=== PATIENT | male | born 1975 | race Caucasian/White ===

== ENCOUNTER 2017-12-06 14:28 | Emergency (ER) | payer OTHER, SELFPAY ==
[2017-12-06 14:29] VITALS: BP 170/100; PULSE 61; RESP 18; TEMP 36.6; O2SAT 96; BMI 28.2
--- NOTE | 2017-12-06 15:07 | CT_ITS ---
STUDY: CT ABDOMEN AND PELVIS WITHOUT CONTRAST REASON FOR EXAM: Male, 41 years old. Left flank pain RADIATION DOSAGE (If Supplied By Facility): CTDIvol = ( 14.43 ) mGy, DLP = ( 722.33 ) mGycm TECHNIQUE: Transaxial images were obtained from the dome of the diaphragm to the symphysis pubis without oral contrast, and without intravenous contrast. Sagittal and coronal images were reconstructed. Individualized dose optimization techniques were used for this CT. COMPARISON: 2012 FINDINGS: The visualized lung bases are unremarkable. The visualized portions of the heart are within normal limits. Normal liver. Normal gallbladder and extrahepatic biliary system. Normal spleen. Normal pancreas. Normal bilateral adrenal glands. Both kidneys show nonobstructing nephrolithiasis. Largest stone in the right kidney measures 3 mm, largest in the left 8 mm. Right kidney is free of obstruction, left kidney shows hydronephrosis and hydroureter. Findings are due to a 5 mm stone in the proximal left ureter best seen on coronal recon image 70 Normal visualized stomach. Normal small intestine. Normal colon. The appendix is visualized and appears normal. Appendix best seen on coronal recon image 73 Normal abdominal aorta. Normal inferior vena cava. Normal retroperitoneum. Normal urinary bladder. Normal abdominal wall. Normal osseous structures. CT/Abdomen/Pelvis without Cont IMPRESSION: 5 mm stone in the proximal left ureter causing left-sided hydronephrosis and hydroureter. No significant perinephric or periureteral inflammatory stranding noted. Bilateral nonobstructing nephrolithiasis Normal appendix visualized. Electronically Signed: Rajeev Busby MD at 15:59 EDT , Service support ,
--- NOTE | 2017-12-06 15:13 | ED.VISSUMM ---
- ER Visit Summary Date of Service: 12/06/17 Chief Complaint: Left flank pain History of Present Illness: The patient is a 41 M history of prior kidney stone. Today approximately 1315 p.m. he developed sudden onset left flank pain. No vomiting. No diarrhea. No dysuria or hematuria. No fever. Feels like his prior kidney stone. Denies any trauma. Physical Examination: Middle-aged male complaining of pain vital signs are stable and afebrile. He does not look septic or toxic. H EENT exam unremarkable. Neck nontender. Lungs clear to auscultation bilaterally. Heart regular rhythm no murmur. Abdomen is soft nondistended normal bowel sounds no peritoneal signs. Both the right upper right lower quadrant unremarkable. No hernias or masses. No signs of obstruction. Moving all 4 extremities. Neurovascular intact. Back exam is nontender he points to his left CVA region for the pain but is not reproducible. There is no signs of trauma. Neurologic exam is awake and alert moving all 4 extremities. Test Results: CT flank shows a left proximal 5 mm ureteral calculi with hydroureter and hydronephrosis. There is also some renal stones. Appendix is seen is normal. Read by the radiologist reviewed by me. Emergency Department Course and Treatment: Patient with left flank pain with prior kidney stone. Treated with IV fluids, Dilaudid, Zofran and Toradol. CT and UA will be obtained. Treatment Plan: Repeat exam patient looks and feels much better at 1615 on repeat exam. Feeling much better after the pain medication. Currently we are waiting for him to be able to give us a urine sample. He will be discharged on [place] for pain. Flomax and can also use Motrin. Strain his urine to determine if the stone pass. Follow-up with Dr. Nelson as needed. Disposition: Discharge Impression: Acute left flank pain secondary to left proximal 5 mm ureteral calculi History of kidney stones This note was generated with [employer] dictation software. It may contain incorrect words, spelling, and punctuation that were not noted in review of the chart prior to signing ED Disposition - Plan for ED Patient: Chief Complaint: Flank Pain Referrals: Erica Negro MD [Primary Care Provider] -
[2017-12-06] MEDS: Ketorolac 30 MG/ML Syringe IV (15:25)
[2017-12-06] MEDS: 0.9% Normal Saline 1,000 ML 1000 ML IV (15:25)
[2017-12-06] MEDS: Ondansetron 4 MG/2 ML Vial IV (15:25)
[2017-12-06] MEDS: HYDROmorphone 1 MG/ML Syringe IV (15:25)
--- NOTE | 2017-12-06 16:16 | ED.DEP ---
ED Disposition - Plan for ED Patient: Disposition: Home or Assisted Living Chief Complaint: Flank Pain Instructions: ED Stone Renal W Colic Prescriptions: Hydrocodone/Acetaminophen [[place] 10-325 Tablet] 1 - 2 ea PO Q4H PRN PRN #20 tab PRN Reason: kidney stone Ondansetron [Zofran Odt] 4 mg PO Q4H PRN PRN #10 tab.rapdis PRN Reason: Nausea Tamsulosin HCl [Flomax] 0.4 mg PO DAILY #3 cap Referrals: Russ Nelson MD [STAFF PHYSICIAN] - 1-2 Days if not improving Additional Instructions: Plenty of fluids and rest. Strain your urine looking past the stone. [place] as needed for pain. May also use Motrin or Advil. Zofran as needed for nausea. Call follow-up with Dr. Nelson the urologist as needed. Return to ER if you are feeling worse, fever or intractable vomiting
--- NOTE | 2017-12-06 16:25 | DCINST.ED_ITS ---
ED Disposition - Plan for ED Patient: Disposition: Home or Assisted Living Chief Complaint: Flank Pain Instructions: ED Stone Renal W Colic Prescriptions: Hydrocodone/Acetaminophen [[place] 10-325 Tablet] 1 - 2 ea PO Q4H PRN PRN #20 tab PRN Reason: kidney stone Ondansetron [Zofran Odt] 4 mg PO Q4H PRN PRN #10 tab.rapdis PRN Reason: Nausea Tamsulosin HCl [Flomax] 0.4 mg PO DAILY #3 cap Referrals: Russ Nelson MD [STAFF PHYSICIAN] - 1-2 Days if not improving Additional Instructions: Plenty of fluids and rest. Strain your urine looking past the stone. [place] as needed for pain. May also use Motrin or Advil. Zofran as needed for nausea. Call follow-up with Dr. Nelson the urologist as needed. Return to ER if you are feeling worse, fever or intractable vomiting
[2017-12-06 16:43] VITALS: BP 142/74; PULSE 71; RESP 16; O2SAT 98
== END 2017-12-06 16:44 | disposition home or self-care (01) ==
PROVIDERS: Emergency Provider Emergency Medicine; Family Provider Internal Medicine; PCP Internal Medicine
DX: N13.2 Hydronephrosis with renal and ureteral calculous obstruction (principal); R10.9 Unspecified abdominal pain; Z87.442 Personal history of urinary calculi
CPT/HCPCS: 74176; 96361; 96374; 96375; 99283; J7030; A4216; J2405

== ENCOUNTER 2017-12-11 19:40 | Observation (INO) | payer OTHER, SELFPAY ==
[2017-12-11 19:41] VITALS: BP 156/93; PULSE 86; RESP 20; TEMP 37; O2SAT 98; BMI 31.1
[2017-12-11] MEDS: Morphine 4 MG/ML Syringe IV (20:11)
[2017-12-11] MEDS: 0.9% Normal Saline 1,000 ML 1000 ML IV (20:11)
[2017-12-11] MEDS: Ketorolac 30 MG/ML Syringe IV (20:11)
[2017-12-11] MEDS: Ondansetron 4 MG/2 ML Vial IV (20:11)
--- NOTE | 2017-12-11 20:34 | RAD_ITS ---
STUDY: X-RAY - ABDOMEN/PELVIS REASON FOR EXAM: Male, 42 years old. History of kidney stone TECHNIQUE: Single AP view of the abdomen / pelvis. COMPARISON: Previous study of 12/10/2012 FINDINGS: The lung bases are not in the field of view of the study. There is an unremarkable bowel gas pattern. There is no demonstrated free abdominal air. There are several calcific densities overlying the upper pole of the left kidney measuring up to 7 mm, corresponding to upper pole left renal calcifications noted on CT study of 12/06/2017. There is a 4 x 2 mm calcification of the medial left abdomen adjacent to the L3-4 disc space which may be intraureteral. Normal soft tissue structures. Normal visualized osseous structures. RAD/Abdomen Single View IMPRESSION: Calcifications overlying the upper pole of the left kidney corresponding to left renal calculi noted on CT study of 12/06/2017. There is a 2 x 4 mm calcification of the medial left abdomen adjacent to the L3-4 disc space which may be intraureteral. There is no evidence of ileus or obstruction. Electronically Signed: Osiel Elkins MD at 21:00 EDT , Service support ,
[2017-12-11 21:06] LABS: Absolute Lymphocyte Count 2.01 X10^3/ul (0.83-4.51); Absolute Neutrophil Count 3.1 X10^3/uL (2.0-7.7); Basophil# 0.03 X10^3/uL; Basophil% 0.5 % (0-1); Eosinophil# 0.12 X10^3/uL; Eosinophils% 2.1 % (0-5); Hematocrit 39.1 % (40-54); Hemoglobin 13.3 g/dl (13.0-16.5); Lymphocyte # 2.01 X10^3/ul (4.0); Lymphocyte % 34.7 % (19-41); Mean Corpuscular Hgb 31.1 pg (27.0-32.0); Mean Corpuscular Volume 91.4 fL (80-94); Monocyte# 0.51 X10^3/uL; Monocyte% 8.8 % (0-10); Neutrophil # 3.11 X10^3/uL (2.7-7.7); Neutrophil % 53.7 % (47-70); Platelet Count 186 K/mm3 (150-450); RBC Distribution Width CV 12.7 % (11.6-14.6); RBC Distribution Width SD 42.1 fl (35.1-43.9); Red Blood Count 4.28 M/mm3 (4.6-6.2); White Blood Count 5.8 K/mm3 (4.4-11.0)
[2017-12-11 21:07] LABS: POSITIVE COUNT NO; POSITIVE DIFFERENTIAL NO; POSITIVE MORPHOLOGY NO
[2017-12-11 21:45] LABS: Anion Gap 7 (5-15); BUN 18 mg/dL (7-18); BUN/Creat Ratio 13.7 RATIO (10-20); Calcium,Total 8.4 mg/dL (8.5-10.1); Chloride 111 mmol/L (98-107); Creatinine, Serum 1.31 mg/dL (0.70-1.30); EST Glomerular Filtration Rate 64 mL/min (>60); Est Glom Filt Rate - Afr Amer 77 mL/min (>60); Glucose 103 mg/dL (74-106); Potassium 4.4 mmol/L (3.5-5.1); Sodium Level 146 mmol/L (136-145)
[2017-12-11 22:03] LABS: Bacteria 0 SEEN /hpf (None Seen); Mucous, Urine 0 SEEN /hpf (<or=2+); White Blood Cells 0 SEEN /hpf (0-5)
--- NOTE | 2017-12-11 22:04 | ED.VISSUMM ---
- ER Visit Summary Date of Service: 12/11/17 Chief Complaint: Flank pain History of Present Illness: The patient is a 42 M who presents with left flank pain. He was seen in the emergency department 5 days ago. He was diagnosed with a proximal ureteral calculus at that time. He was discharged on [place] Flomax and NSAIDs. His pain was initially controlled but he complains of worsening pain since that time. Currently complains of severe left flank pain. No nausea vomiting or diarrhea. Physical Examination: Afebrile vitals stable Moist mucous membranes Heart regular rate and rhythm Lungs clear Abdomen soft nondistended he does have left flank tenderness left lower quadrant tenderness Alert Test Results: Labs notable for sodium 146 chloride 111 creatinine 1.31 which is slightly increased from prior labs. Urinalysis pending at the time of this dictation. Abdominal x-ray shows a 2 x 4 mm calcification in the medial left abdomen which may be in the ureter. Emergency Department Course and Treatment: Patient was treated with IV fluids morphine Toradol and Zofran. He reports a moderate improvement in symptoms. Patient discussed with Dr. Pro jessica Kothari who will admit the patient with plan for ureteral stent tomorrow. Treatment Plan: [] Disposition: Admit Impression: Ureterolithiasis This note was generated with [employer] dictation software. It may contain incorrect words, spelling, and punctuation that were not noted in review of the chart prior to signing ED Disposition - Plan for ED Patient: Chief Complaint: Flank Pain Referrals: Erica Negro MD [Primary Care Provider] -
[2017-12-11 22:09] LABS: Color, Urine Yellow (Yellow); Glucose, Dipstick Normal (Normal); Ketone-Dipstick Negative (Negative); Leukocyte Esterase-Dipstick Negative /ul (Negative); Nitrite-Dipstick Negative (Negative); Occult Blood-Urine 250 /ul (Negative); Protein-Dipstick Negative (Negative); Urine Bilirubin Dipstick Negative (Negative); Urine Clarity Sl. Cloudy (Clear); Urine Urobilinogen 1 mg/dl (Normal)
[2017-12-11 22:15] LABS: Red Blood Cells-Urine 10-25 SEEN /hpf (0-5); Squamous Epithelial Cells - UA 0-5 SEEN /hpf (0-5)
[2017-12-11 22:40] VITALS: RESP 18; O2SAT 98
[2017-12-11 22:53] VITALS: BMI 31.4; BMI 31.5
[2017-12-11] MEDS: 0.9% Normal Saline 1,000 ML 125 ML IV (23:04)
[2017-12-11 23:30] VITALS: BP 157/105; PULSE 83; RESP 16; TEMP 36.8; O2SAT 96
[2017-12-11] MEDS: Cefazolin 1 GM/50 ML BAG IV (23:49)
[2017-12-12] VITALS (13 sets, daily range): BP systolic 136–155; BP diastolic 68–102; PULSE 63–97; RESP 16–18; TEMP 36.1–37.2; O2SAT 91–98; BMI 31.4
[2017-12-12] MEDS: Cefazolin 1 GM/50 ML BAG IV ×2 (06:03→14:56)
[2017-12-12] MEDS: Morphine 2 MG/ML Syringe IV (06:05)
--- NOTE | 2017-12-12 07:51 | PCM.HP.STD ---
Problem List (1) Left ureteral calculus Status: Acute History of Present Illness Date of Admission: 12/12/17 Chief Complaint: Left kidney stones in the ureter and in the kidney The patient is a 42 year old male who presents to the hospital with severe pain from a left stone in the mid left ureter and also has stone in the left kidney and the patient was admitted for pain control plan to take the patient today to surgery for cystoscopy and left stent placement Past Medical History Allergies aspirin Allergy (Verified 12/11/17 19:42) Rash latex Allergy (Verified 12/11/17 19:42) Rash Home Medications: Ambulatory Orders Medication Instructions Recorded Cyclobenzaprine [Flexeril] 10 mg PO QHS PRN 12/06/17 Furosemide [Lasix] 1 tab PO DAILY 12/06/17 Surgical History: no surgical history Psychiatric History: No pertinent psych hx Lives: Spouse/ Significant Other Smoking Status: Former smoker Tobacco Use: Cigarettes Alcohol: None Drugs: None Review of Systems Constitutional: Denies: Chills, Fever, Weight Change HEENT: Denies: Head Aches, Sinus Congestion, Sinus Drainage Cardiovascular: Denies: Chest Pain, Palpitations Respiratory: Denies: Cough, Shortness of breath at rest, Sputum production Gastrointestinal: Denies: Abdominal Pain, Nausea, Vomiting Genitourinary: Denies: Dysuria Musculoskeletal: Denies: Joint Pain, Joint Tenderness Skin: Denies: Rash, Wounds Neurological: Denies: Numbness, Tingling, Focal weakness Psychiatric: Denies: Anxiety, Depression, Homicidal Ideations, Suicidal Ideations Hematologic/ Lymphatic: Denies: Easy Bruising, Easy Bleeding VTE Information - Inpt Only VTE Present on Admission: No VTE Mechan Device Prophylaxis: SCD's Patient Problems: Active and Suspected Problems Left ureteral calculus (Acute) - Physical Exam General: Alert, Oriented x3, Cooperative HEENT: Atraumatic, PERRLA, EOMI, Normocephalic Neck: Supple, No JVD, Negative Carotid Bruits Lungs: Clear to auscultation, Normal air movement Cardiovascular: Regular rate, No murmurs Abdomen: Bowel Sounds Present, Soft, Non Tender Extremities: No edema, Capillary Refill Less than 3 Seconds Skin: No rashes, No breakdown Musculoskeletal: No Tenderness to Palpation of Joints or Extremities Neurological: Cranial nerves II-XII grossly intact Psych/Mental Status: Normal Affect, Appropriate Vital Signs Temp Pulse Resp BP Pulse Ox 98.1 F 65 18 143/87 H 97 12/12/17 02:17 12/12/17 02:17 12/12/17 02:17 12/12/17 02:17 12/12/17 02:17 Oxygen Delivery Method Room Air Weight: 105.4 kg Body Mass Index (BMI) 31.4 Intake and Output for Last 24 Hours 12/10/17 12/11/17 12/12/17 23:59 23:59 23:59 Intake Total 350 / 350 785 / 785 Output Total 575 / 575 1025 / 1025 Balance -225 / -225 -240 / -240 Assessment/Plan All Active Problems Left ureteral calculus (Acute) 42-year-old male admitted for pain control for mid left ureteral calculi and some stones in left kidney plan for cystoscopy and stent placement today and discharge after procedure
--- NOTE | 2017-12-12 07:54 | PCM.DC.URO ---
Discharge Diet: Light diet - advance as tolerated Discharge Activity: Return to Normal Activity Call your doctor if you observe: Fever of 101 or Higher Allergies/Adverse Reactions: Allergies aspirin Allergy (Verified 12/11/17 19:42) Rash latex Allergy (Verified 12/11/17 19:42) Rash Medications to take at Discharge Cyclobenzaprine [Flexeril] 10 mg PO QHS PRN 12/06/17 Furosemide [Lasix] 1 tab PO DAILY 12/06/17 Hydrocodone/Acetaminophen [[place] 5-325 Tablet] 1 ea PO Q4H PRN PRN 7 Days #14 tab 12/12/17 The following prescriptions were given: Hydrocodone/Acetaminophen [[place] 5-325 Tablet] 1 ea PO Q4H PRN PRN 7 Days #14 tab PRN Reason: Pain Primary Care Physician: Erica Negro MD [Primary Care Provider] - Test Results: Test results from this visit will be discussed in further detail at your follow-up appointment, if applicable. Please Follow Up With: Russ Nelson MD When: my office will call to set up outpatient lithotripsy.
[2017-12-12] MEDS: 0.9% Normal Saline 1,000 ML 125 ML IV ×2 (08:11→14:57)
--- NOTE | 2017-12-12 12:13 | OP.PCM_ITS ---
Problem List (1) Left ureteral calculus Status: Acute Report of Operation Date of Procedure: 12/12/17 Pre-Operative Diagnosis: Left ureteral calculi left renal calculi Post-Operative Diagnosis: Same Surgery/Procedure Performed:: Cystoscopy and left stent placement, left retrograde pyelogram Description of Surgical Findings:: 42-year-old male presented to the hospital with severe pain in the left side from a stone in the mid ureter and some stones up in the left kidney he was admitted and today was taken to surgery for cystoscopy left stent placement, 42 male taken back to the operating room at the smooth induction of general anesthesia he was placed supine on the table penis testicles were prepped and draped in usual sterile fashion within the bladder with a 21 [place] rigid cystourethroscope the entire length the urethra is normal the prostate was normal inside the bladder identified the left ureteral orifice and advanced a wire up on the left side, and then did a retrograde pyelogram to [place] catheter to see the anatomy and then advanced a wire up into the kidney can see stones in the upper pole the kidney I ended up pushing the stone in the ureter back up to the kidney and over the wire place a stent 6 [place] by 26 cm stent stent coiled in the kidney bladder good good position I drain the bladder patient anesthetic was reversed plan is plan to set him up for surgery for shockwave lithotripsy about a week and a half. Type of Anesthesia:: General Drains: stent - Admit VTE Documentation VTE Present on Admission: No VTE Mechan Device Prophylaxis: SCD's VTE Pharm Prophylaxis ordered?: No Reason prophylaxis not ordered:: Treatment Not Indicated
== END 2017-12-12 18:48 | disposition home or self-care (01) ==
LOC: ED 20:47 → MS2 22:19
PROVIDERS: Admitting Provider Urology; Emergency Provider Emergency Medicine; Family Provider Internal Medicine; PCP Internal Medicine; Visit Provider Urology
PROC: 0TJB8ZZ Inspection of Bladder, Via Natural or Artificial Opening Endoscopic (ICD-10-PCS; CPT 52000; principal; 2017-12-12 14:50)
DX: N20.2 Calculus of kidney with calculus of ureter (principal); K21.9 Gastro-esophageal reflux disease without esophagitis; G89.29 Other chronic pain; Z79.899 Other long term (current) drug therapy; Z87.891 Personal history of nicotine dependence
CPT/HCPCS: 00910; 52332; 74018; 76000; 80048; 81001; 85025; 96361; 96365; 96366; 96375; 96376; 99218; 99282; J7030; C1769; C2617; G0378; J2405

== ENCOUNTER → 2018-01-02 08:21 | Outpatient (CLI) | payer OTHER, SELFPAY | PROVIDERS: Family Provider Internal Medicine; PCP Internal Medicine; Visit Provider Urology | DX: N20.0 Calculus of kidney (principal) | CPT/HCPCS: 74018 ==

== ENCOUNTER → 2019-10-25 11:44 | Outpatient (CLI) | payer OTHER, SELFPAY ==
[2019-10-25 13:17] LABS: HIV - WCH Non-Reactive (Nonreactive)
[2019-10-25 14:02] LABS: Chlamydia Trachomatis by PCR Negative (Negative)
[2019-10-25 14:03] LABS: Neisserai gonorrhoeae by PCR Negative (Negative); Probe Check PASS; Sample Adequacy Control PASS; Specimen Processing Control PASS
[2019-10-25 15:36] LABS: Probe Check PASS; Sample Adequacy Control PASS; Specimen Processing Control PASS; Trichomonas Vag DNA by PCR Negative (Negative)
[2019-10-27 15:53] LABS: HSV 2 IgG 2.49 index (0.00-0.90)
[2019-11-01 01:56] LABS: Rapid Plasmin Reagin (RPR) NONREACTIVE (NONREACTIVE)
--- OUTSIDE RECORDS SUMMARY | 2020-03-09 07:46 | XMS RPT_ITS | CCD ---
:1975 External Reference #:[id number] Author Organization [facility] Care Team Providers Name Role Phone GANTA Unavailable Unavailable Allergies Reported Allergen Reaction(s) Severity Date of Onset Location Bee Translations: [ BEES] Swelling 04-09-2005 - [facility] Other [place] Repository Latex Translations: [ Other: See Comments 10-26-2012 [facility] LATEX] Other [place] Repository salicylic acid Rash 04-09-2005 [facility] Cli henrik Translations: [ Other [place] SALICYLATES] Repository sulfamethoxazole / Other: See Comments 10-26-2012 [facility] trimethoprim Other [place] Translations: [ Repository SULFAMETHOXAZOLE-TRIMETHO PRIM] Medications Medication Name Sig Date Prescriber Location buPROPion buPROPion 07-03-2018 Janay ([facility]) [facility] (WELLBUTRIN) 100 mg (70624) tablet Indications: Depression, unspecified depression type Take 1 tablet by mouth twice daily. 60 tablet 5 07/03/2018 Active Comment: Take 1 tablet by mouth twice daily. CPAP CPAP Indications: Obstructive 01-09-2019 [facility] ([id number]) sleep apnea syndrome Initiate Auto PAP @ 5-20 cm of water with humidification. Mask (per patient preference) optional chin strap (if indicated) , filters, tubing, humidifier and lifetime supplies. 1 Device 0 01/09/2019 Active CPAP Indications: Obstructive sleep 01-09-2019 [facility] ([id number]) apnea syndrome Initiate Auto PAP @ 5-20 cm of water with humidification. Mask (per patient preference) optional chin strap (if indicated) , filters, tubing, humidifier and lifetime supplies. 1 Device 0 01/09/2019 Active CPAP Indications: Obstructive sleep 01-09-2019 [facility] ([id number]) apnea syndrome Initiate Auto PAP @ 5-20 cm of water with humidification. Mask (per patient preference) optional chin strap (if indicated) , filters, tubing, humidifier and lifetime supplies. 1 Device 0 01/09/2019 Active CPAP Indications: Obstructive sleep 01-09-2019 [facility] (31452) apnea syndrome Initiate Auto PAP @ 5-20 cm of water with humidification. Mask (per patient preference) optional chin strap (if indicated) , filters, tubing, humidifier and lifetime supplies. 1 Device 0 01/09/2019 Active Comment: Initiate Auto PAP @ 5-20 cm of water with humidification. Mask (per patient preference) optional chin st rap (if indicated) , filters, tubing, humidifier and lifetime supplies. cyclobenzaprine cyclobenzaprine (FLEXERIL) 04-26-2017 [facility] 10 mg tablet Take 1 tablet ( 13640) by mouth at bedtime as needed. 45 tablet 2 04/26/2017 Active Comment: Take 1 tablet by mouth at be dtime as needed. Lisinopril lisinopril (ZESTRIL, 11-22-2019 - [facility] PRINIVIL) 10 mg tablet 01-29-2020 (4419 5) Take 1 tablet by mouth once daily. 30 tablet 1 11/22/2019 01/29/2020 Discontinued Comment: Take 1 tablet by mouth once daily. Losartan losartan (COZAAR) 25 mg 01-29-2020 Janay ([facility]) [facility] tablet Take 1 tablet by (441 95) mouth once daily. 30 tablet 1 01/29/2020 Active Comment: Take 1 tablet by mouth once daily. Naproxen naproxen sodium (ALEVE) 02-18-2016 Margaret ([facility]) [facility] (37728) 220 mg tablet Take 1 tablet by mouth twice daily with meals. TAKE WITH FOOD 0 02/18/2016 Active Comment: Take 1 tablet by mouth twice daily with meals. TAKE WITH FOOD Nystatin nystatin (MYCOSTATIN) powder 12-13-2019 [facility] Indications: Intertriginous (11004) candidiasis Apply 1 application to affected area four times daily. 2 Bottle 1 12/13/2019 Active Comment: Apply 1 application to affec jania area four times daily. 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 disorders syndrome (96900) Other nutritional; Body mass index 25-29 - Active 01-19-2017 - [facility] endocrine; and overweight (17554) metabolic disorders Residual codes; Obstructive sleep apnea Active 12-19-2018 - [facility] unclassified syndrome (34242) Rheumatoid arthritis Arthropathy of lumbar Active 04-26-2017 - [facility] and related disease facet joint (88266) Spondylosis; Lumbosacral spondylosis Active 04-26-2017 - [facility] intervertebral disc (92362) disorders; other back problems Past or Other Problems Category Problem Name Status Date Location Other lower H/O: respiratory Completed 01-19-2017 - [facility] linic respiratory disease disease (99179) Results Result Name Value Range Unit Interpretation Flag Date Location [facility] on 2020-01-29 [facility] Telephone (INTMWS) Normal 01-29-2020 [facility] DEANNE MCGOVERN ([id number]) 1975 M [place] Date Time Provider Department ([id number]) 01/29/20 ROBERTO CARLOS SCHERER INTMWS During your visit today, we recorded the following informati on about you: Christi Mosley LPN 01/29/2020 10:38 AM Signed Patient calling complaints of dry cough thinks it is f rom the Lisinopril rx. Patient asking for replacement rx. Patient uses [facility] his pharmacy. Can call patient back before 2 pm, works at 230 pm today. Please advise Janay Patricio APRN.INFORMATION STRATEGIST 01/29/2020 1:11 PM Signed Can switch to losartan, please make sure to keep scheduled appointment with to recheck BP. The following approved medic ation requests have been transmitted electronically. Signed Prescriptions Disp Refills losartan (COZAAR) 25 mg tablet 30 tablet 1 Sig: Take 1 tablet by mouth once daily. Authorizing Provider: JANAY PATRICIO (INFORMATION STRATEGIST) Janay Patricio APRN.ROSAURA Lissshemar Rebollar Ma 01/29/2020 2:31 PM Signed Patient notified. Allergies As of Date: 01/29/2020 Noted Allergy Reaction ASA (SALICYLATES) 04/09/2005 2 - Rash BACTRIM (SULFAMETHOXAZOLE-TRIMETH*10/26/2012 14 - Other: See Comments Comments: Photodermatitis BEES 04/09/2005 7 - Swelling LATEX 10/26/2012 14 - Other: See Comments Comments: Dermatology tested. Date Reviewed: 11/14/2019 Reviewed by: Lady Rogel ([employer]) Dylan - Fully Assessed Reason for Visit: lisinopril causing dry cough [Other] Order(s):losartan (COZAAR) 25 mg tabletTake 1 tablet by mout h once daily.Disp: 30 tabletRfl: 1 Prescriptions as of 01/29/2020 Sig: LOSARTAN 25 MG TABLET Take 1 tablet by mouth once d* NYSTATIN 100,000 UNIT/GRAM TO* Apply 1 application to affect * CPAP Initiate Auto PAP @ 5-20 cm o* BUPROPION HCL 100 MG TABLET Take 1 tablet by mouth twice * CYCLOBENZAPRINE 10 MG TABLET Take 1 tablet by mouth at bed* NAPROXEN SODIUM 220 MG TABLET Take 1 tablet by mouth twice * Problem List As Of Date 01/29/2020 Noted Resolved Depressive disorder, not elsewhere classified [*09/06/2007 0 01/19/2017 SPONDYLOLISTHESIS [Q76.2] 09/06/2007 Essential hypertension, benign [I10] 11/19/2013 01/19/2017 History of pleural empyema [Z87.09] 01/19/2017 More... Overweight (BMI 25.0-29.9) [E66.3] 01/19/2017 More... Carpal tunnel syndrome, bilateral [G56.03] 01/19/2017 Facet arthropathy, lumbar (HCC) [M47.816] 04/26/2017 More... Spondylosis of lumbosacral region [M47.817] 04/26/2017 Obstructive sleep apnea [G47.33] 12/19/2018 Prescriptions ordered this encounter Disp Refills Start End LOSARTAN 25 MG TABLET 30 t* 1 01/29/2020 Route: ORAL Sig: Take 1 tablet by mouth once daily. Medications Discontinued During This Encounter Prescriptions - lisinopril (ZESTRIL, PRINIVIL) 10 mg tablet (Discontinued) Take 1 tablet by mouth once daily. 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 Patient found out that [facility] cannot run this test and he will have to take the order to [facility] for completion. Please review and advise. KRUNAL Tinoco MD 01/18/2020 3:13 PM Signed His HSV 2, which was the test of contention has come negativ e for us There is not need to do any futher testing accor ding to me unless the patient insists Leona Ramirez LPN 01/21/2020 4:09 PM Signed Phone number is disconnected or out of service. Letter mailed out and my chart message sent for patient to all office. Leona Millan LPN 01/21/2020 4:49 PM Signed Pt reports notified of results. Pt repor ts he would like further testing since the first test was positive and the second was negative. Pt updated his phone number. Nida Lafleur LPN 01/22/2020 8:24 AM Signed Form received. Leona Ramirez LPN 01/23/2020 6:26 PM Signed Phoned patient and notified him that form was completed by and we will place it in medical records to be picked up. 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 Leona Ramirez LPN Allergies As of Date: 01/18/2020 Noted Allergy Reaction ASA (SALICYLATES) 04/09/2005 2 - Rash BACTRIM (SULFAMETHOXAZOLE-TRIMETH*10/26/2012 14 - Other: See Comments Comments: Photodermatitis BEES 04/09/2005 7 - Swelling LATEX 10/26/2012 14 - Other: See Comments Comments: Dermatology tested. Date Reviewed: 11/14/2019 Reviewed by: Lady Rogel ([employer] [facility]) Dylan - Fully Assessed Reason for Visit: outside lab order form [Other] Prescriptions as of 01/18/2020 Sig: NYSTATIN 100,000 UNIT/GRAM TO* Apply 1 application to affect * LISINOPRIL 10 MG TABLET Take 1 tablet by mouth once d* CPAP Initiate Auto PAP @ 5-20 cm o* BUPROPION HCL 100 MG TABLET Take 1 tablet by mouth twice * CYCLOBENZAPRINE 10 MG TABLET Take 1 tablet by mouth at bed* NAPROXEN SODIUM 220 MG TABLET Take 1 tablet by mouth twice * Problem List As Of Date 01/18/2020 Noted Resolved Depressive disorder, not elsewhere classified [*09/06/2007 0 01/19/2017 SPONDYLOLISTHESIS [Q76.2] 09/06/2007 Essential hypertension, benign [I10] 11/19/2013 01/19/2017 History of pleural empyema [Z87.09] 01/19/2017 More... Overweight (BMI 25.0-29.9) [E66.3] 01/19/2017 More... Carpal tunnel syndrome, bilateral [G56.03] 01/19/2017 Facet arthropathy, lumbar (HCC) [M47.816] 04/26/2017 More... Spondylosis of lumbosacral region [M47.817] 04/26/2017 Obstructive sleep apnea [G47.33] 12/19/2018 Letter Text Encounter Status:Closed by LEONA RAMIREZ LPN on 01/23/20 cnpn on 2019-12-14 CNPN Telephone (INTMWS) Normal 12-14-2019 [place] DEANNE Fischer ([id number]) 1975 [facility] Date Time Provider Department ([id number]) 12/14/19 ROBERTO CARLOS SCHERER INTMWS During your visit today, we recorded the following informati on about you: Kimberley Tubbs RN 12/14/2019 1:19 PM Signed Patient reports he contacted the [facility] . Reports they are the only one who does the Western Blot blood test for herp es, and it is the most accurate. They are sending him the kit. Reports they n eed an order from pcp. Instructions will come with kit. Once th ey read the instructions will call pcp to either cigar packer and picker Rx or have pcp send to [facility]. Allergies As of Date: 12/14/2019 Noted Allergy Reaction ASA (SALICYLATES) 04/09/2005 2 - Rash BACTRIM (SULFAMETHOXAZOLE-TRIMETH*10/26/2012 14 - Other: See Comments Comments: Photodermatitis BEES 04/09/2005 7 - Swelling LATEX 10/26/2012 14 - Other: See Comments Comments: Dermatology tested. Date Reviewed: 11/14/2019 Reviewed by: Lady Rogel ([employer]) Dylan - Fully Assessed Reason for Visit: Western Blot Blood Test [Other] Prescriptions as of 12/14/2019 Sig: ACYCLOVIR 400 MG TABLET Take 1 tablet by mouth three * NYSTATIN 100,000 UNIT/GRAM TO* Apply 1 application to affect * DOXYCYCLINE HYCLATE 100 MG TA* Take 1 tablet by mouth twice * LISINOPRIL 10 MG TABLET Take 1 tablet by mouth once d* CPAP Initiate Auto PAP @ 5-20 cm o* BUPROPION HCL 100 MG TABLET Take 1 tablet by mouth twice * CYCLOBENZAPRINE 10 MG TABLET Take 1 tablet by mouth at bed* NAPROXEN SODIUM 220 MG TABLET Take 1 tablet by mouth twice * Problem List As Of Date 12/14/2019 Noted Resolved Depressive disorder, not elsewhere classified [*09/06/2007 0 01/19/2017 SPONDYLOLISTHESIS [Q76.2] 09/06/2007 Essential hypertension, benign [I10] 11/19/2013 01/19/2017 History of pleural empyema [Z87.09] 01/19/2017 More... Overweight (BMI 25.0-29.9) [E66.3] 01/19/2017 More... Carpal tunnel syndrome, bilateral [G56.03] 01/19/2017 Facet arthropathy, lumbar (HCC) [M47.816] 04/26/2017 More... Spondylosis of lumbosacral region [M47.817] 04/26/2017 Obstructive sleep apnea [G47.33] 12/19/2018 Encounter Status:Closed by JANAY PATRICIO CNP on 12/21/19 progress on 2019-11 PROGRESS HNO ID: [id number] Normal 12-13-2019 [facility] Author: Roberto Carlos Scherer Quinonez ([id number]) Service: ? Author Type: Physician Type: Progress Notes Filed: 12/13/2019 1:13 PM Note Text: Reason for Visit Patient presents with: Established Patient Deanne Mcgovern is a 44 year old male who presents here today see below . 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 Lot of emotional strife going on between them and they would like to find out if the HSV 2 is new. Also patient noted that he has been having some intertrigino us issues in the groin redness, a little soreness , he has been using the antifungal spray but it is not working for her. No problem-specific Assessment AND Plan notes found for this encounter. PAST MEDICAL HISTORY Diagnosis Date - Depressive disorder, not elsewhere classified 09/06/2007 - Empyema (HCC) 2000 - Kidney stone 2013 - Pneumonia X3 PAST SURGICAL HISTORY Procedure Laterality Date - PAST SURGICAL HISTORY OF 2000 Drainage of empyema FAMILY HISTORY Problem Relation Age of Onset - Heart Father valvular - Hypertension Father - Stroke Father Social History Tobacco Use - Smoking status: Former Smoker Packs/day: 0.50 Years: 5.00 Pack years: 2.50 Types: Cigarettes Last attempt to quit: 06/04/2013 Years since quittin.5 - Smokeless tobacco: Never Used Substance Use Topics - Alcohol use: No Frequency: Patient refused Drinks per session: 1 or 2 Binge frequency: Never - Drug use: No Past medical history, appointments, medications, allergies r eviewed. Pertinent Lab/Diagnostic Studies are reviewed and discussed today Current Outpatient Medications: - lisinopril (ZESTRIL, PRINIVIL) 10 mg tablet - CPAP - buPROPion (WELLBUTRIN) 100 mg tablet - cyclobenzaprine (FLEXERIL) 10 mg tablet - naproxen sodium (ALEVE) 220 mg tablet Review of Systems CONSTITUTIONAL: No fevers, chills night sweats, unintended w eight loss CARDIOVASCULAR: No chest pain, dyspnea, palpitations, orthop theo, PND, ankle edema. PULM: No dyspnea, unexplained cough. GI: No dysphagia/odynophagia, problematic reflux, constipati on, diarrhea, changes in stool habits, hematochezia, melena. : No new urinary complaints, including dysuria, gross stella turia or pyuria. NEURO: No new balance problems, peripheral weakness/paresthe singh or numbness of concern. Physical Exam BP 120/74 (BP Site: Left Arm, BP Position: Sitting, BP Cuff Size: Large Adult) Pulse 90 Temp 36 ?C (96.8 ?F) (Temporal) Resp 1 6 Wt 101.2 kg (223 lb) SpO2 96% BMI 30.24 kg/m? General appearance: Well appearing, alert, in no acute distr ess, well nourished. Skin: Skin color, texture, turgor normal, no suspicious rash es or lesions Head: Normocephalic, no masses, lesions, tenderness or abnor malities Eyes: Anicteric sclera. Pupils are equally round and reactiv e to light. Extraocular movements are intact. Lungs: Lungs clear to auscultation. No wheezing, rhonchi, ra les Heart: RRR without murmur, gallop, or rubs. Groin: macerated skin which is also erythematous intertrigin ous areas of both groins and the cleft of the buttock. ASSESSMENT/PLAN: 1. Herpes genitalis in men - ICD9: 054.10, ICD10: A60.02 (pr imary diagnosis) - HSV 1 AND 2 IGM ABS, INDIRECT - HSV-2 TYPE SPEC AB, IGG W/RFLX - ACYCLOVIR 400 MG TABLET 2. Skin infection - ICD9: 686.9, ICD10: L08.9 - DOXYCYCLINE HYCLATE 100 MG TABLET 3. Intertriginous candidiasis - ICD9: 112.3, ICD10: B37.2 - NYSTATIN 100,000 UNIT/GRAM TOPICAL POWDER ROBERTO CARLOS SCHERER MD hsvg typ 1 and 2 abs on 2019-12-13 Herpes Simplex IgG 1 >8.0 Normal 0 [facility] ([id number]) Comment: Result Comment: INDEX VALUES ARE INTERPRETED FOLLOWS: NEGATIVE SPECIMENS <0.9 EQUIVOCAL SPECIMENS 0.9 TO 1 .0 POSITIVE SPECIMENS >=1.1 Performed By: #### HSVG12 ## ##[address] [phone] Herpes Simplex IgG 2 <0.2 Normal 0 [facility] ([id number]) Comment: Result Comment: INDEX VALUES ARE INTERPRETED FOLLOWS: NEGATIVE SPECIMENS <0.9 EQUIVOCAL SPECIMENS 0.9 TO 1 .0 POSITIVE SPECIMENS >=1.1 Performed By: #### HSVG12 ## ##[address] [phone] HSV IgG 1 Positive Negative Critically 12-13-2019 [facility] Qualitative abnormal [facility] ([id number]) Comment: Result Comment: IgG antibody to HSV-1 detected Performed By: #### HSVG12 ## ##[address] [phone] HSV IgG 2 Qualitative Negative Negative Normal 12-13-19 20 [facility] ([id number]) Comment: Result Comment: No HSV-2 IgG antibodies detected. Patient is presumed not to h ave had a previous HSV-2 infection. Performed By: #### HSVG12 ## ##[address] [phone] herpes simplex igm on 2019-12-13 Herpes Simplex IgM 1.10 0-0.90 OD Ratio High 12-13-2019 [facility] ([id number]) Comment: Result Comment: INDEX VALUES /OD RATIOS ARE INTERPRETED FOLLOWS: NEGATIVE SPECIMENS <=0.90 EQUIVOCAL SPECIMENS 0.91 TO 1.09 POSITIVE SPECIMENS >=1.10 Performed By: #### HSVM #### [facility] [place], [place] [phone] HSV IgM Qualitative Positive Negative Critically [address] [facility] abnormal [place] ([id number]) Comment: Result Comment: IgM antibodi es specific to HSV-1 or HSV-2 were detected. It is n ot possible to distinguish between HSV-1 and HSV-2 with this test system. Posit chyna values indicate a primary or reacti vated infection with HSV-1 or HSV- 2. Performed By: #### HSVM #### [facility] [place], [place] [phone] cnpn on 2019-12-13 CNPN Telephone (INTMWS) Normal 12-13-2019 [place] [facility] DEANNE MCGOVERN ([id number]) 1975 [facility] Date Time Provider Department () 12/13/19 ROBERTO CARLOS SCHERER INTMWS During your visit today, we recorded the following informati on about you: Ilana Emerson VALDEZ 12/13/2019 3:30 PM Signed Michelle from lab called about HSV orders. From w hat is currently ordered, she can only pull herpes simplex Can not do just type 2 alone Can do both. Correct order is: HSV 1,2 Antibodies, IgG and IgM [employer] HSVGM CPT Codes 20206 [id number] Includes HSV IgG Type 1 Antibody HSV IgG Type 2 Antibody HSV IgM Types 1 and 2 (combined) Antibodies Ilana Emerson VALDEZ 12/13/2019 3:51 PM Signed Michelle calling back. They were able to figure out cor rect orders and how to process. At this time, nothing more is needed. Disregard mes errol below. Allergies As of Date: 12/13/2019 Noted Allergy Reaction ASA (SALICYLATES) 04/09/2005 2 - Rash BACTRIM (SULFAMETHOXAZOLE-TRIMETH*10/26/2012 14 - Other: See Comments Comments: Photodermatitis BEES 04/09/2005 7 - Swelling LATEX 10/26/2012 14 - Other: See Comments Comments: Dermatology tested. Date Reviewed: 11/14/2019 Reviewed by: Lady Rogel ([employer]) Dylan - Fully Assessed Reason for Visit: question about lab orders [Other] Prescriptions as of 12/13/2019 Sig: ACYCLOVIR 400 MG TABLET Take 1 tablet by mouth three * NYSTATIN 100,000 UNIT/GRAM TO* Apply 1 application to affect * DOXYCYCLINE HYCLATE 100 MG TA* Take 1 tablet by mouth twice * LISINOPRIL 10 MG TABLET Take 1 tablet by mouth once d* CPAP Initiate Auto PAP @ 5-20 cm o* BUPROPION HCL 100 MG TABLET Take 1 tablet by mouth twice * CYCLOBENZAPRINE 10 MG TABLET Take 1 tablet by mouth at bed* NAPROXEN SODIUM 220 MG TABLET Take 1 tablet by mouth twice * Problem List As Of Date 12/13/2019 Noted Resolved Depressive disorder, not elsewhere classified [*09/06/2007 0 01/19/2017 SPONDYLOLISTHESIS [Q76.2] 09/06/2007 Essential hypertension, benign [I10] 11/19/2013 01/19/2017 History of pleural empyema [Z87.09] 01/19/2017 More... Overweight (BMI 25.0-29.9) [E66.3] 01/19/2017 More... Carpal tunnel syndrome, bilateral [G56.03] 01/19/2017 Facet arthropathy, lumbar (HCC) [M47.816] 04/26/2017 More... Spondylosis of lumbosacral region [M47.817] 04/26/2017 Obstructive sleep apnea [G47.33] 12/19/2018 Encounter Status:Closed by ILANA RAMIREZ LPN on 12/13/19 cnov on 2019-12-13 CNOV Office Visit (INTMWS) Normal 12-13-19 20 [place] [facility] DEANNE MCGOVERN ([id number]) 1975 [facility] Date Time Provider Department ([id number]) 12/13/19 9:00 AM ROBERTO CARLOS SCHERER INTMWS During your visit today, we recorded the following informati on about you: Temperature Pulse Respiration Blood pressure 96.8 degrees 90/minute 16/minute 120/74 Weight 101.2 kg ROBERTO CARLOS SCHERER MD 12/13/2019 1:13 PM Signed Reason for Visit Patient presents with: Established Patient Deanne Mcgovern is a 44 year old male who presents here today see below . Health Maintenance HEPATITIS C SCREENING HIV SCREENING HPI Patient was tested positive for HSV 1 an d 2, he says she is monogamous but his is upset saying that he claims she is in the only one who has been the partner for the Past 3 months. Lot of emotional strife going on between them an d they would like to find out if the HSV 2 is new. Also patient noted that he has been having some intert riginous issues in the groin redness, a little soreness , he has been u sing the antifungal spray but it is not working for her. No problem-specific Assessment AND Plan notes found for this encounter. PAST MEDICAL HISTORY Diagnosis Date - Depressive disorder, not elsewhere classified 09/06/2007 - Empyema (HCC) 2000 - Kidney stone 2013 - Pneumonia X3 PAST SURGICAL HISTORY Procedure Laterality Date - PAST SURGICAL HISTORY OF 2000 Drainage of empyema FAMILY HISTORY Problem Relation Age of Onset - Heart Father valvular - Hypertension Father - Stroke Father Social History Tobacco Use - Smoking status: Former Smoker Packs/day: 0.50 Years: 5.00 Pack years: 2.50 Types: Cigarettes Last attempt to quit: 06/04/2013 Years since quittin.5 - Smokeless tobacco: Never Used Substance Use Topics - Alcohol use: No Frequency: Patient refused Drinks per session: 1 or 2 Binge frequency: Never - Drug use: No Past medical history, appointments, medications, allergies r eviewed. Pertinent Lab/Diagnostic Studies are reviewed and discussed today Current Outpatient Medications: - lisinopril (ZESTRIL, PRINIVIL) 10 mg tablet - CPAP - buPROPion (WELLBUTRIN) 100 mg tablet - cyclobenzaprine (FLEXERIL) 10 mg tablet - naproxen sodium (ALEVE) 220 mg tablet Review of Systems CONSTITUTIONAL: No fevers, chills night sweats, unintended w eight loss CARDIOVASCULAR: No chest pain, dyspnea, palpitations, orth opnea, PND, ankle edema. PULM: No dyspnea, unexplained cough. GI: No dysphagia/odynophagia, problematic reflux, constipati on, diarrhea, changes in stool habits, hematochezia, melena. : No new urinary complaints, including dysuria, areli s hematuria or pyuria. NEURO: No new balance problems, peripheral weakness/pa resthesias or numbness of concern. Physical Exam BP 120/74 (BP Site: Left Arm, BP Positio n: Sitting, BP Cuff Size: Large Adult) Pulse 90 Temp 36 ?C (96.8 ?F) (Temporal) Resp 16 Wt 101.2 kg (223 lb) SpO2 96% BMI 30.24 kg/m? General appearance: Well norman earing, alert, in no acute distress, well nourished. Skin: Skin color, texture, turgor normal, no suspicious rash es or lesions Head: Normocephalic, no masses, lesions, tenderness or abnor malities Eyes: Anicteric sclera. Pupils are equally round and reactiv e to light. Extraocular movements are intact. Lungs: Lungs clear to auscultation. No wheezing, rhonchi, ra les Heart: RRR without murmur, gallop, or rubs. Groin: macerated skin which is also erythematous intertriginous areas of both groins and the cleft of the buttock. ASSESSMENT/PLAN: 1. Herpes genitalis in men - ICD9: 054.10, ICD10: A60. 02 (primary diagnosis) - HSV 1 AND 2 IGM ABS, INDIRECT - HSV-2 TYPE SPEC AB, IGG W/RFLX - ACYCLOVIR 400 MG TABLET 2. Skin infection - ICD9: 686.9, ICD10: L08.9 - DOXYCYCLINE HYCLATE 100 MG TABLET 3. Intertriginous candidiasis - ICD9: 112.3, ICD10: B37.2 - NYSTATIN 100,000 UNIT/GRAM TOPICAL POWDER MD ROBERTO CARLOS RAE MD 12/13/2019 2:37 PM Signed Addended by: ROBERTO CARLOS SCHERER MD on: 12/13/2019 02:37 PM Modules accepted: Orders Referring Provider: SELF [200] Allergies As of Date: 12/13/2019 Noted Allergy Reaction ASA (SALICYLATES) 04/09/2005 2 - Rash BACTRIM (SULFAMETHOXAZOLE-TRIMETH*10/26/2012 14 - Other: See Comments Comments: Photodermatitis BEES 04/09/2005 7 - Swelling LATEX 10/26/2012 14 - Other: See Comments Comments: Dermatology tested. Date Reviewed: 11/14/2019 Reviewed by: Lady Rogel ([employer]) Dylan - Fully Assessed Reason for Visit: Established Patient [175] Primary Visit Diagnosis:Herpes genitalis in men [A60.02] Other Visit Diagnoses:Skin infection [L08.9] Intertriginous candidiasis [B37.2] Order(s):HSV 1 AND 2 IGM ABS, INDIRECT [[id number]] Order #: [id number] FUTURE HSV-2 TYPE SPEC AB, IGG W/RFLX [[id number]] Order #: [id number] FUTURE HSV 1 AND 2 IGM ABS, INDIRECT [[id number]] Order #: [id number] HSV-2 TYPE SPEC AB, IGG W/RFLX [[id number]] Order #: [id number] acyclovir (ZOVIRAX) 400 mg tabletTake 1 tablet by mouth thre e times daily for 7 days.Disp: 21 tabletRfl: 1 nystatin (MYCOSTATIN) powderApply 1 application to affected area four times daily.Disp: 2 BottleRfl: 1 doxycycline (VIBRA-TABS) 100 mg tabletTake 1 tablet by mouth twice daily for 10 days.Disp: 20 tabletRfl: 0 HSV-2 TYPE SPEC AB, IGG W/RFLX [[id number]] Order #: [id number] FUTURE HSV 1 AND 2 IGM ABS, INDIRECT [[id number]] Order #: [id number] FUTURE HSV-2 TYPE SPEC AB, IGG W/RFLX [[id number]] Order #: [id number] HSV 1 AND 2 IGM ABS, INDIRECT [[id number]] Order #: [id number] HSV-2 TYPE SPEC AB, IGG W/RFLX [[id number]] Order #: [id number] FUTURE HSV-2 TYPE SPEC AB, IGG W/RFLX [[id number]] Order #: [id number] HERPES SIMPLEX IGM AB [SQHS] Order #: [id number] FUTURE Prescriptions as of 12/13/2019 Sig: ACYCLOVIR 400 MG TABLET Take 1 tablet by mouth three * NYSTATIN 100,000 UNIT/GRAM TO* Apply 1 application to affect * DOXYCYCLINE HYCLATE 100 MG TA* Take 1 tablet by mouth twice * LISINOPRIL 10 MG TABLET Take 1 tablet by mouth once d* CPAP Initiate Auto PAP @ 5-20 cm o* BUPROPION HCL 100 MG TABLET Take 1 tablet by mouth twice * CYCLOBENZAPRINE 10 MG TABLET Take 1 tablet by mouth at bed* NAPROXEN SODIUM 220 MG TABLET Take 1 tablet by mouth twice * Problem List As Of Date 12/13/2019 Noted Resolved Depressive disorder, not elsewhere classified [*09/06/2007 0 01/19/2017 SPONDYLOLISTHESIS [Q76.2] 09/06/2007 Essential hypertension, benign [I10] 11/19/2013 01/19/2017 History of pleural empyema [Z87.09] 01/19/2017 More... Overweight (BMI 25.0-29.9) [E66.3] 01/19/2017 More... Carpal tunnel syndrome, bilateral [G56.03] 01/19/2017 Facet arthropathy, lumbar (HCC) [M47.816] 04/26/2017 More... Spondylosis of lumbosacral region [M47.817] 04/26/2017 Obstructive sleep apnea [G47.33] 12/19/2018 Prescriptions ordered this encounter Disp Refills Start End ACYCLOVIR 400 MG TABLET 21 t* 1 12/13/2019 12/20/2019 Route: ORAL Sig: Take 1 tablet by mouth three times daily for 7 days. NYSTATIN 100,000 UNIT/GRAM TOPICAL P* 2 Vj* 1 12/13/2019 Route: TOPICAL Sig: Apply 1 application to affected area four times daily. DOXYCYCLINE HYCLATE 100 MG TABLET 20 t* 0 12/13/2019 020 Route: ORAL Sig: Take 1 tablet by mouth twice daily for 10 days. Encounter Status:Closed by ROBERTO CARLOS SCHERER MD on 12/13/19 obsolete on 2019-11 OBSOLETE Refill (INTMWS) Normal 11-22-2019 [place] DEANNE Fischer ([id number]) 1975 [facility] Date Time Provider Department ([id number]) 11/22/19 JANAY PATRICIO ([facility]) INTMWS During your visit today, we recorded the following informati on about you: Dorene Johnson LPN 11/22/2019 9:40 AM Signed Patient has been identified by name and date of : Yes Patient phones for refill(s): Pending Prescriptions Disp Refills LISINOPRIL 10 MG TABLET 30 tablet 1 Sig: Take 1 tablet by mouth once daily. JAIDEN: No Date of last office visit in primary care: 03/08/2019 Follow-up: 12/13/2019 Last 2 Encounter Wt Readings: Date: Wt: 11/14/2019 103.2 kg (227 lb 9.6 oz) 10/24/2019 102.2 kg (225 lb 3.2 oz) Previous labs/tests for medication: Blood Pressure: BUN (mg/dL) Date Value 01/08/2019 16 Sodium (mmol/L) Date Value 01/08/2019 143 Last 1 Encounter BP Readings: Date: BP: 11/14/2019 132/88 Please advise. Thank you. Dorene Johnson LPN Allergies As of Date: 11/22/2019 Noted Allergy Reaction ASA (SALICYLATES) 04/09/2005 2 - Rash BACTRIM (SULFAMETHOXAZOLE-TRIMETH*10/26/2012 14 - Other: See Comments Comments: Photodermatitis BEES 04/09/2005 7 - Swelling LATEX 10/26/2012 14 - Other: See Comments Comments: Dermatology tested. Date Reviewed: 11/14/2019 Reviewed by: Lady Rogel (Sofiya Zavala) Dylan - Fully Assessed Reason for Visit: Refill Request [94] Order(s):lisinopril (ZESTRIL, PRINIVIL) 10 mg tabletTake 1 t ablet by mouth once daily.Disp: 30 tabletRfl: 1 Prescriptions as of 11/22/2019 Sig: LISINOPRIL 10 MG TABLET Take 1 tablet by mouth once d* CPAP Initiate Auto PAP @ 5-20 cm o* BUPROPION HCL 100 MG TABLET Take 1 tablet by mouth twice * CYCLOBENZAPRINE 10 MG TABLET Take 1 tablet by mouth at bed* NAPROXEN SODIUM 220 MG TABLET Take 1 tablet by mouth twice * Problem List As Of Date 11/22/2019 Noted Resolved Depressive disorder, not elsewhere classified [*09/06/2007 0 01/19/2017 SPONDYLOLISTHESIS [Q76.2] 09/06/2007 Essential hypertension, benign [I10] 11/19/2013 01/19/2017 History of pleural empyema [Z87.09] 01/19/2017 More... Overweight (BMI 25.0-29.9) [E66.3] 01/19/2017 More... Carpal tunnel syndrome, bilateral [G56.03] 01/19/2017 Facet arthropathy, lumbar (HCC) [M47.816] 04/26/2017 More... Spondylosis of lumbosacral region [M47.817] 04/26/2017 Obstructive sleep apnea [G47.33] 12/19/2018 Prescriptions ordered this encounter Disp Refills Start End LISINOPRIL 10 MG TABLET 30 t* 1 11/22/2019 Route: ORAL Sig: Take 1 tablet by mouth once daily. Medications Discontinued During This Encounter lisinopril (ZESTRIL, PRINIVIL) 10 mg* 30 t* 1 09/11/20192019 Route: ORAL Sig: Take 1 tablet by mouth once daily. Disc: Reason for discontinue is not on file. Encounter Status:Closed by MARGARET RAGSDALE CNP on 11/22/19 progress on 2019-10 PROGRESS HNO ID: [id number] Normal 11-14-2019 [place] Author: Lady Rogel (Sofiya Ashlyn Richardson [facility] Service: ? [place] Author Type: Nurse Practitioner ([id number]) Type: Progress Notes Filed: 11/14/2019 4:03 PM Note Text: Subjective HPI Deanne Kurt Mcgovern is a 43 year old male who presents with right ear pressure, decreased hearing, and bloody drainage for that started last night. Denies pain. No URI symptoms, fever, or chills. No recent swimming, itching of the ear, or trauma. Works for [employer]- not around any loud [employer]. No history of ear issues similar to this in the last. appl ied [employer] last night which worsened the symptoms. Review of Systems Constitutional: Negative for chills, fever and malaise/fatig ue. HENT: Positive for ear discharge and hearing loss. Negative for congestion, ear pain, sinus pain and sore throat. Respiratory: Negative for cough, sputum production, shortnes s of breath and wheezing. Skin: Negative for itching and rash. Neurological: Negative for dizziness, tingling and headaches . BP 132/88 Pulse 76 Temp 36.8 ?C (98.2 ?F) (Temporal) R seth 16 Wt 103.2 kg (227 lb 9.6 oz) BMI 30.87 kg/m? PAST MEDICAL HISTORY Diagnosis Date - Depressive disorder, not elsewhere classified 09/06/2007 - Empyema (HCC) 2000 - Kidney stone 2013 - Pneumonia X3 PAST SURGICAL HISTORY Procedure Laterality Date - PAST SURGICAL HISTORY OF 2000 Drainage of empyema ALLERGIES Asa [Salicylates]; Bactrim [Sulfamethoxazole-Trime thoprim]; Bees; Latex MEDICATIONS lisinopril (ZESTRIL, PRINIVIL) 10 mg tablet Take 1 tablet by mouth once daily. CPAP Initiate Auto PAP @ 5-20 cm of water with humidificatio n. Mask (per patient preference) optional chin strap (if indicated) , myriam ters, tubing, humidifier and lifetime supplies. buPROPion (WELLBUTRIN) 100 mg tablet Take 1 tablet by mouth twice daily. cyclobenzaprine (FLEXERIL) 10 mg tablet Take 1 tablet by federico th at bedtime as needed. naproxen sodium (ALEVE) 220 mg tablet Take 1 tablet by mouth twice daily with meals. TAKE WITH FOOD wyfnwdxn-burypzxct-nbdkuidufiglqv (CORTISPORIN) 3.5-10,000-1 mg/mL-unit/mL-% otic suspension Use 3 Drops in the right ear four times daily for 7 days. FAMILY HISTORY Problem Relation Age of Onset - Heart Father valvular - Hypertension Father - Stroke Father Social History Tobacco Use - Smoking status: Former Smoker Packs/day: 0.50 Years: 5.00 Pack years: 2.50 Types: Cigarettes Last attempt to quit: 06/04/2013 Years since quittin.4 - Smokeless tobacco: Never Used Substance Use Topics - Alcohol use: No Frequency: Patient refused Drinks per session: 1 or 2 Binge frequency: Never - Drug use: No Objective Physical Exam Constitutional: He is oriented to person, place, and time an d well-developed, well-nourished, and in no distress. HENT: Head: Normocephalic and atraumatic. Right Ear: There is drainage, swelling and tenderness. Tympa henrik membrane is not perforated, not erythematous and not bulging. No midd le ear effusion. Decreased hearing is noted. Left Ear: No drainage, swelling or tenderness. Tympanic memb troy is not perforated, not erythematous and not bulging. No middle ear effusion. No decreased hearing is noted. Mouth/Throat: No posterior oropharyngeal edema or posterior oropharyngeal erythema. Eyes: Conjunctivae are normal. Pulmonary/Chest: Effort normal. No respiratory distress. Lymphadenopathy: He has no cervical adenopathy. Neurological: He is alert and oriented to person, place, and time. No cranial nerve deficit. Gait normal. Coordination normal. Skin: No rash noted. Psychiatric: Mood, memory, affect and judgment normal. ASSESSMENT/PLAN: 1. Acute otitis externa of right ear, unspecified type - ICD 9: 380.10, ICD10: H60.501 - keep ear clean and dry - SLIEWYHC-MHFUHAGCM-IMHDUNKTB 3.5 MG-10,000 UNIT/ML-1 % EAR DROPS,SUSP All of the above discussed with the patient in detail. Misty fernandez is in agreement with the above plan. Treatment and plan of care di scussed including course of treatment, possible medication side effe cts, and what to watch for in regards to worsening signs and symptoms. All questions addressed. Lady Richardson APRN.INFORMATION STRATEGIST cnov on 2019-11-14 CNOV Office Visit ([facility]) Normal 11-14-19 [place] [facility] DEANNE MCGOVERN ([id number]) 1975 M [place] Date Time Provider Department ([id number]) 11/14/19 3:00 PM LADY RICHARDSON (ASSESSMENT CONSULTANT, INFORMATION STRATEGIST)UCWSTR During your visit today, we recorded the following informati on about you: Temperature Pulse Respiration Blood pressure 98.2 degrees 76/minute 16/minute 132/88 Weight 103.2 kg Lady Richardson APRN.INFORMATION STRATEGIST 11/14/2019 4:03 PM Signed Subjective HPI Deannecaro Mcgovern is a 43 year old male who presents with right ear pressure, decreased hearing, and bloody drainage for that started last night. Denies pain. No URI symptoms, fever, or chills. No recent swimmin g, itching of the ear, or trauma. Works for [employer]- not around any loud [employer]. No history of ear issues similar to this in the last. norman lied [employer] last night which worsened the symptoms. Review of Systems Constitutional: Negative for chills, fever and malaise/fatig ue. HENT: Positive for ear disch arge and hearing loss. Negative for congestion, ear pain, sinus pain and sore throat. Respiratory: Negative for cough, sputum production, shortn ess of breath and wheezing. Skin: Negative for itching and rash. Neurological: Negative for dizziness, tingling and headaches . BP 132/88 Pulse 76 Temp 36.8 ?C (98.2 ?F) (Temporal) R seth 16 Wt 103.2 kg (227 lb 9.6 oz) BMI 30.87 kg/m? PAST MEDICAL HISTORY Diagnosis Date - Depressive disorder, not elsewhere classified 09/06/2007 - Empyema (HCC) 2000 - Kidney stone 2013 - Pneumonia X3 PAST SURGICAL HISTORY Procedure Laterality Date - PAST SURGICAL HISTORY OF 2000 Drainage of empyema ALLERGIES Asa [Salicylates]; Bactrim [Sulfamethoxazole-Tri methoprim]; Bees; Latex MEDICATIONS lisinopril (ZESTRIL, PRINIVIL) 10 mg tab let Take 1 tablet by mouth once daily. CPAP Initiate Auto PAP @ 5-20 cm of water with humidificatio n. Mask (per patient preference) optional chin strap (if indicated) , myriam ters, tubing, humidifier and lifetime supplies. buPROPion (WELLBUTRIN) 100 mg tablet Take 1 tablet by mouth twice daily. cyclobenzaprine (FLEXERIL) 10 mg tablet Take 1 tablet by mouth at bedtime as needed. naproxen sodium (ALEVE) 220 mg tablet Take 1 tab let by mouth twice daily with meals. TAKE WITH FOOD plbziqzs-mtbnfphoe-befouimyngblsn (CORTISPORIN) 3.5-10 ,000-1 mg/mL-unit/mL-% otic suspension Use 3 Drops in the right ear four times shala y for 7 days. FAMILY HISTORY Problem Relation Age of Onset - Heart Father valvular - Hypertension Father - Stroke Father Social History Tobacco Use - Smoking status: Former Smoker Packs/day: 0.50 Years: 5.00 Pack years: 2.50 Types: Cigarettes Last attempt to quit: 06/04/2013 Years since quittin.4 - Smokeless tobacco: Never Used Substance Use Topics - Alcohol use: No Frequency: Patient refused Drinks per session: 1 or 2 Binge frequency: Never - Drug use: No Objective Physical Exam Constitutional: He is oriented to person, place, and time and well-developed, well-nourished, and in no distress. HENT: Head: Normocephalic and atraumatic. Right Ear: There is drainage , swelling and tenderness. Tympanic membrane is not perforated, not erythematous and not bulging. No middle ear effusion. Decreased hearing is noted. Left Ear: No drainage, swelling or tenderness. Tympanic memb troy is not perforated, not erythematous and not bulging. No middle ear effusion. No decreased hearing is noted. Mouth/Throat: No posterior oropharyngeal edema or posterior oropharyngeal erythema. Eyes: Conjunctivae are normal. Pulmonary/Chest: Effort normal. No respiratory distress. Lymphadenopathy: He has no cervical adenopathy. Neurological: He is alert and oriented to person , place, and time. No cranial nerve deficit. Gait normal. Coordination normal. Skin: No rash noted. Psychiatric: Mood, memory, affect and judgment normal. ASSESSMENT/PLAN: 1. Acute otitis externa of right ear, unspecifie d type - ICD9: 380.10, ICD10: H60.501 - keep ear clean and dry - JTEEBWVI-AURNHVARV-FZXEGLTBJ 3.5 MG-10,000 UNIT/ML-1 % EAR DROPS,SUSP All of the above discussed with the zuleyka ent in detail. Patient is in agreement with the above plan. Treatment and plan of care discussed including course of treatment, possible medication side effects, and what to watch for in regards to worsening signs and symptoms. All questions addressed. Lady Richardson, SOFIYA.INFORMATION STRATEGIST Referring Provider: SELF [200] Allergies As of Date: 11/14/2019 Noted Allergy Reaction ASA (SALICYLATES) 04/09/2005 2 - Rash BACTRIM (SULFAMETHOXAZOLE-TRIMETH*10/26/2012 14 - Other: See Comments Comments: Photodermatitis BEES 04/09/2005 7 - Swelling LATEX 10/26/2012 14 - Other: See Comments Comments: Dermatology tested. Date Reviewed: 11/14/2019 Reviewed by: Lady Rogel ([employer]) Dylan - Fully Assessed Reason for Visit: Ear Problem [38] Cmt: RIGHT ear pressure with blood x 1 day Primary Visit Diagnosis:Acute otitis externa of right ear, unspecified type [H60.501] Order(s):dbnnjnnt-icresawpa-feosbchfntgpqu (CORTISPORIN) 3.5 -10,000-1 mg/mL-unit/mL-% otic suspensionUse 3 Drops in the right ear four times daily for 7 days.Disp: 1 BottleRfl: 0 Prescriptions as of 11/14/2019 Sig: LISINOPRIL 10 MG TABLET Take 1 tablet by mouth once d* CPAP Initiate Auto PAP @ 5-20 cm o* BUPROPION HCL 100 MG TABLET Take 1 tablet by mouth twice * CYCLOBENZAPRINE 10 MG TABLET Take 1 tablet by mouth at bed* NAPROXEN SODIUM 220 MG TABLET Take 1 tablet by mouth twice * CNIGURCF-DNBGHBUPN-BVIDIGBRE * Use 3 Drops in the right ear * Problem List As Of Date 11/14/2019 Noted Resolved Depressive disorder, not elsewhere classified [*09/06/2007 0 01/19/2017 SPONDYLOLISTHESIS [Q76.2] 09/06/2007 Essential hypertension, benign [I10] 11/19/2013 01/19/2017 History of pleural empyema [Z87.09] 01/19/2017 More... Overweight (BMI 25.0-29.9) [RPH1776] 01/19/2017 More... Carpal tunnel syndrome, bilateral [G56.03] 01/19/2017 Facet arthropathy, lumbar (HCC) [M47.816] 04/26/2017 More... Spondylosis of lumbosacral region [M47.817] 04/26/2017 Obstructive sleep apnea [G47.33] 12/19/2018 Prescriptions ordered this encounter Disp Refills Start End VLVWKRWQ-INRBKPWIG-SAMCSVLMM 3.5 MG-* 1 Vj* 0 11/14/201905/2019 Route: RIGHT EAR Sig: Use 3 Drops in the right ear four times daily for 7 day s. Encounter Status:Closed by DYLAN ARRIAZA.LADY ZAVALA on 11/13 progress on 2019-10 PROGRESS HNO ID: [id number] Normal 10-24-2019 [facility] Author: George (Rosaura) [facility] ([id number]) Service: ? Author Type: Nurse Practitioner Type: Progress Notes Filed: 10/24/2019 9:51 AM Note Text: Subjective HPI Nontoxic-appearing male presents urgent care with requests o f STD testing. Patient states would like him to be tested for syphilis , gonorrhea, chlamydia, Trichomonas, hepatitis panel, HIV. Additionally p atient request a CBC CMP and lipid profile. Patient states he has b een in a monogamous relationship for over 30 years and has no concern s for STDs. Patient is denies any symptoms. Patient states he feels well and does not have any fevers, abdominal pain, testicular pain, chest pain , shortness breath, abdominal pain or change in bowel or bladder habits. BP 122/82 Pulse 94 Temp 36.2 ?C (97.2 ?F) (Tympanic) R seth 18 Wt 102.2 kg (225 lb 3.2 oz) BMI 30.54 kg/m? Review of Systems Constitutional: Negative for chills, fever and malaise/fatig ue. HENT: Negative for congestion, ear discharge, ear pain, sinu s pain and sore throat. Eyes: Negative for blurred vision. Respiratory: Negative for cough, sputum production, shortnes s of breath and wheezing. Cardiovascular: Negative for chest pain. Gastrointestinal: Negative for abdominal pain, nausea and vo miting. Genitourinary: Negative. Musculoskeletal: Negative for myalgias. Skin: Negative for itching and rash. Neurological: Negative for dizziness and headaches. Objective Physical Exam Constitutional: He is oriented to person, place, and time an d well-developed, well-nourished, and in no distress. No distr ess. HENT: Right Ear: Hearing and ear canal normal. No drainage. No dec reased hearing is noted. Left Ear: Hearing, tympanic membrane and ear canal normal. N o drainage. No decreased hearing is noted. Mouth/Throat: Uvula is midline. Eyes: Pupils are equal, round, and reactive to light. Conjun ctivae are normal. Right eye exhibits no discharge. Left eye exhibits n o discharge. Genitourinary: Testes/scrotum and penis normal. Genitourinary Comments: Per Pt Neurological: He is alert and oriented to person, place, and time. Gait normal. Skin: Skin is warm and dry. No rash noted. He is not diaphor etic. Psychiatric: Affect and judgment normal. Nursing note and vitals reviewed. ASSESSMENT/PLAN: 1. Screening for STD (sexually transmitted disease) - ICD9: V74.5, ICD10: Z11.3 I offered to test patient for chlamydia and gonorrhea patien t states he would like to have a full workup patient will follow up with primary care provider to get test performed. Patient was educated on supportive therapies. Patient will f ollow up with primary care provider as needed. Patient was instructed to i mmediately proceed to emergency room for any new, worsening, or symptom s lasting longer than anticipated. The patient's clinical presentation is otherwise unremarkable at this time. Based on exam and clinical findin g, the patient is stable for discharge. Plan of care was discussed with juan manuel trinidad. Patient verbalizes understanding and agrees to plan of care. This no te was generated using [employer] software. It may contain errors in wo rding, punctuation, or spelling. George Choi APRN.INFORMATION STRATEGIST cnov on 2019-10-24 CNOV Office Visit ([facility]) Normal 10-24-19 20 [place] [facility] DEANNE MCGOVERN ([id number]) 1975 [facility] Date Time Provider Department ([id number]) 10/24/19 8:45 AM GEORGE CHOI (ROSAURA) [facility] During your visit today, we recorded the following informati on about you: Temperature Pulse Respiration Blood pressure 97.2 degrees 94/minute 18/minute 122/82 Weight 102.2 kg George Choi APRN.ROSAURA 10/24/2019 9:51 AM Signed Subjective HPI Nontoxic-appearing male presents urgent care with requests o f STD testing. Patient states would like him to be tested for syphilis , gonorrhea, chlamydia, Trichomonas, hepatitis panel, HIV. Addition ally patient request a CBC CMP and lipid profile. Patient states he has been in a m onogamous relationship for over 30 years and has n o concerns for STDs. Patient is denies any symptoms. Patient states he feels well and does not have any fevers, abdominal pain, testicular pain, chest pain, anna rtness breath, abdominal pain or change in bowel or bladder habits. BP 122/82 Pulse 94 Temp 36.2 ?C (97.2 ?F) (Tympanic) R seth 18 Wt 102.2 kg (225 lb 3.2 oz) BMI 30.54 kg/m? Review of Systems Constitutional: Negative for chills, fever and malaise/fatig ue. HENT: Negative for congestion, ear discharge, ear pain, si nus pain and sore throat. Eyes: Negative for blurred vision. Respiratory: Negative for cough, sputum production, shortn ess of breath and wheezing. Cardiovascular: Negative for chest pain. Gastrointestinal: Negative for abdominal pain, nausea and vo miting. Genitourinary: Negative. Musculoskeletal: Negative for myalgias. Skin: Negative for itching and rash. Neurological: Negative for dizziness and headaches. Objective Physical Exam Constitutional: He is oriented to person, place, and time and well-developed, well-nourished, and in no distress. No distress. HENT: Right Ear: Hearing and ear canal normal. No drai nage. No decreased hearing is noted. Left Ear: Hearing, tympanic membrane and ear canal normal. N o drainage. No decreased hearing is noted. Mouth/Throat: Uvula is midline. Eyes: Pupils are equal, round, and react chyna to light. Conjunctivae are normal. Right eye exhibits no discharge. Left eye exhibits no discha rge. Genitourinary: Testes/scrotum and penis normal. Genitourinary Comments: Per Pt Neurological: He is alert an d oriented to person, place, and time. Gait normal. Skin: Skin is warm and dry. No rash noted. He is not diaphor etic. Psychiatric: Affect and judgment normal. Nursing note and vitals reviewed. ASSESSMENT/PLAN: 1. Screening for STD (sexual ly transmitted disease) - ICD9: V74.5, ICD10: Z11.3 I offered to test patient for chlamydia and gono rrhea patient states he would like to have a full workup p atient will follow up with primary care provider to get test performed. Patient was educated on supportive therapies. Patient will f ollow up with primary care provider as needed. Patient was instructed to immediately proceed to emergency room for any new, worsening, or symptoms lastin g longer than anticipated. The patient's clinical presentation is otherwise unremarkable at this time. Based on exam and clinical finding, the patient i s stable for discharge. Plan of care was discussed with patient. Patient verbalizes understanding and agrees to plan of care . This note was generated using [employer] software. It may contain errors in wording, punctuation, or spelling. George Choi APRN.[facility] Referring Provider: SELF [[id number]] Allergies As of Date: 10/24/2019 Noted Allergy Reaction ASA (SALICYLATES) 04/09/2005 2 - Rash BACTRIM (SULFAMETHOXAZOLE-TRIMETH*10/26/2012 14 - Other: See Comments Comments: Photodermatitis BEES 04/09/2005 7 - Swelling LATEX 10/26/2012 14 - Other: See Comments Comments: Dermatology tested. Date Reviewed: 10/24/2019 Reviewed by: George (Air Route Traffic Controller) Jimbo - Fully Assessed Reason for Visit: STD check [Other] Cmt: STD check-possible exposure but no sy mptoms Primary Visit Diagnosis:Scre ening for STD (sexually transmitted disease) [Z11.3] Prescriptions as of 10/24/2019 Sig: LISINOPRIL 10 MG TABLET Take 1 tablet by mouth once d* CPAP Initiate Auto PAP @ 5-20 cm o* BUPROPION HCL 100 MG TABLET Take 1 tablet by mouth twice * CYCLOBENZAPRINE 10 MG TABLET Take 1 tablet by mouth at bed* NAPROXEN SODIUM 220 MG TABLET Take 1 tablet by mouth twice * Problem List As Of Date 10/24/2019 Noted Resolved Depressive disorder, not elsewhere classified [*09/06/2007 0 01/19/2017 SPONDYLOLISTHESIS [Q76.2] 09/06/2007 Essential hypertension, benign [I10] 11/19/2013 01/19/2017 History of pleural empyema [Z87.09] 01/19/2017 More... Overweight (BMI 25.0-29.9) [YPX1457] 01/19/2017 More... Carpal tunnel syndrome, bilateral [G56.03] 01/19/2017 Facet arthropathy, lumbar (HCC) [M47.816] 04/26/2017 More... Spondylosis of lumbosacral region [M47.817] 04/26/2017 Obstructive sleep apnea [G47.33] 12/19/2018 Encounter Status:Closed by JIMBO ARRIAZA.GEORGE ZAVALA on obsolete on 2019-08 OBSOLETE Refill (INTMWS) Normal 09-10-2019 [facility] DEANNE Fischer ([id number]) 1975 [facility] Date Time Provider Department ([id number]) 09/10/19 MARGARET RAGSDALE (ROSAURA) INTMWS During your visit today, we recorded the following informati on about you: Nadira Lafleur LPN 09/11/2019 11:12 AM Signed Spoke /c pt, he states he would stop med ication it for a month or two and then restarted d/t elevated bp 162/104-190/140(without bp medicat ion). After restarting readings average: 118/92, this am 114/91. Pt dave isabel will continue to monitor and notify office if bp remain elevated. Upcoming appointment: 10/31/19(pt preferred F2F visit) Medication request: Pending Prescriptions Disp Refills LISINOPRIL 10 MG TABLET 30 tablet 1 Sig: Take 1 tablet by mouth once daily. JAIDEN: No Please review and advise. Janay Patricio APRN.CNP 09/11/2019 11:26 AM Signed The following approved medic ation requests have been transmitted electronically. Signed Prescriptions Disp Refills lisinopril (ZESTRIL, PRINIVIL) 10 mg tablet 30 tablet 1 Sig: Take 1 tablet by mouth once daily. JAIDEN: No Authorizing Provider: JANAY PATRICIO (INFORMATION STRATEGIST) Janay Patricio APRN.CNP Allergies As of Date: 09/10/2019 Noted Allergy Reaction ASA (SALICYLATES) 04/09/2005 2 - Rash BACTRIM (SULFAMETHOXAZOLE-TRIMETH*10/26/2012 14 - Other: See Comments Comments: Photodermatitis BEES 04/09/2005 7 - Swelling LATEX 10/26/2012 14 - Other: See Comments Comments: Dermatology tested. Date Reviewed: 07/17/2019 Reviewed by: Carol Romo Ma - Fully Assessed Reason for Visit: Refill Request [94] Order(s):lisinopril (ZESTRIL, PRINIVIL) 10 mg tabletTake 1 t ablet by mouth once daily.Disp: 30 tabletRfl: 1 Prescriptions as of 09/10/2019 Sig: LISINOPRIL 10 MG TABLET Take 1 tablet by mouth once d* CPAP Initiate Auto PAP @ 5-20 cm o* BUPROPION HCL 100 MG TABLET Take 1 tablet by mouth twice * CYCLOBENZAPRINE 10 MG TABLET Take 1 tablet by mouth at bed* NAPROXEN SODIUM 220 MG TABLET Take 1 tablet by mouth twice * Problem List As Of Date 09/10/2019 Noted Resolved Depressive disorder, not elsewhere classified [*09/06/2007 0 01/19/2017 SPONDYLOLISTHESIS [Q76.2] 09/06/2007 Essential hypertension, benign [I10] 11/19/2013 01/19/2017 History of pleural empyema [Z87.09] 01/19/2017 More... Overweight (BMI 25.0-29.9) [[id number]] 01/19/2017 More... Carpal tunnel syndrome, bilateral [G56.03] 01/19/2017 Facet arthropathy, lumbar (HCC) [M47.816] 04/26/2017 More... Spondylosis of lumbosacral region [M47.817] 04/26/2017 Obstructive sleep apnea [G47.33] 12/19/2018 Prescriptions ordered this encounter Disp Refills Start End LISINOPRIL 10 MG TABLET 30 t* 1 09/11/2019 Route: ORAL Sig: Take 1 tablet by mouth once daily. Medications Discontinued During This Encounter lisinopril (ZESTRIL, PRINIVIL) 10 mg* 30 t* 1 12/19/201809/10 Route: ORAL Sig: Take 1 tablet by mouth once daily. Disc: Reason for discontinue is not on file. Encounter Status:Closed by JANAY PATRICIO CNP on 09/11/19 progress on 2019-06 PROGRESS HNO ID: [id number] Normal 07-17-2019 [facility] Author: Kimberley Deshpande (Pa-C) Steven Quinonez ([id number]) Service: ? Author Type: Physician Guest Service Team Leader Type: Progress Notes Filed: 07/17/2019 9:01 PM Note Text: BP 140/88 Pulse 92 Temp 36.2 ?C (97.1 ?F) (Tympanic) R seth 16 Wt 103 kg (227 lb) SpO2 97% BMI 30.79 kg/m? 43 year old male with c/o sore throat, aches and pain over l ast 2 weeks. No sinus congestion. Occasional cough. No fever. No close il l contacts. Not painful to swallow, scratchy. Took Naproxen and Mucinex this morning, Xyzal for allergies: chemicals, dust. HISTORIES FAMILY HISTORY Problem Relation Age of Onset - Heart Father valvular - Hypertension Father - Stroke Father PAST MEDICAL HISTORY Diagnosis Date - Depressive disorder, not elsewhere classified 09/06/2007 - Empyema (HCC) 2000 - Kidney stone 2012 - Pneumonia X3 PAST SURGICAL HISTORY Procedure Laterality Date - PAST SURGICAL HISTORY OF 2001 Drainage of empyema Social History Tobacco Use - Smoking status: Former Smoker Packs/day: 0.50 Years: 5.00 Pack years: 2.50 Types: Cigarettes Last attempt to quit: 06/04/2013 Years since quittin.1 - Smokeless tobacco: Never Used Substance Use Topics - Alcohol use: No - Drug use: No ACTIVE PROBLEM LIST Congenital Spondylolisthesis History of Pleural Empyema Overweight (Bmi 25.0-29.9) Carpal Tunnel Syndrome, Bilateral Facet Arthropathy, Lumbar Spondylosis of Lumbosacral Region Obstructive Sleep Apnea Current Outpatient Medications Medication Sig Dispense Refill - CPAP Initiate Auto PAP @ 5-20 cm of water with humidificat ion. Mask (per patient preference) optional chin strap (if indicated) , myriam ters, tubing, humidifier and lifetime supplies. 1 Device 0 - lisinopril (ZESTRIL, PRINIVIL) 10 mg tablet Take 1 tablet by mouth once daily. 30 tablet 1 - buPROPion (WELLBUTRIN) 100 mg tablet Take 1 tablet by mout h twice daily. 60 tablet 5 - cyclobenzaprine (FLEXERIL) 10 mg tablet Take 1 tablet by m outh at bedtime as needed. 45 tablet 2 - naproxen sodium (ALEVE) 220 mg tablet Take 1 tablet by federico th twice daily with meals. TAKE WITH FOOD 0 No current facility-administered medications for this visit. HIV SCREENING due on 1992 BP CONTROLLED (<130/80) due on 1992 EXAM: OBJECTIVE: BP 140/88 Pulse 92 Temp 36.2 ?C (97.1 ?F) (Tympanic) R seth 16 Wt 103 kg (227 lb) SpO2 97% BMI 30.79 kg/m? General appearance: Pleasant adult man in no acute distress. Respirations: regular, unlabored Color: pink to lips and nailbeds, normal turgor Skin: warm, dry, no unusual rashes or lesions Head: Normocephalic Eyes: sclerae and conjunctivae without injection or exudate, PERRLA, EOMI, corneal light reflex symmetric bilaterally Ears: TM's are clear/ giordano bilaterally with normal landmarks , no swelling or deformity ear canal or external ear Nose/Sinuses: Nose patent. No turbinate swelling. Active exu date: none. Maxillary and frontal sinuses nontender to percussion. Oropharynx: oral membranes are moist. Lips, mucosa, and tong ue free from lesions. Gums without inflammation. Posterior pharynx no inj ection, no exudate, no tonsillar hypertrophy. Neck: Neck supple, no lymphadenopathy no; thyroid without ma ss or tenderness. Chest: normally shaped, equal expansion with breaths. Lungs: Lungs clear to auscultation and percussion. No crackl es or wheezes. Heart: RRR without murmur, gallop, or rubs. S1 and S2 normal . R. Strep test negative ASSESSMENT/PLAN: 1. Sore throat - ICD9: 462, ICD10: J02.9 - The patient may also use behind the counter Pseudoephedrin e and warm salt water gargles, throat lozenges and/or OTC throat spray as needed. - RAPID STREP TEST B/O Kimberley Harris PA-C cnov on 2019-07-17 CNOV Office Visit (UCWSTR) Normal 07-17-[address] [place] [address] DEANNE Fischer ([id number]) 1975 [facility] Date Time Provider Department ([id number]) 07/17/19 7:45 PM Kimberley HARRIS) WSTR During your visit today, we recorded the following informati on about you: Temperature Pulse Respiration Blood pressure 97.1 degrees 92/minute 16/minute 140/88 Weight 103 kg Kimberley Harris PA-C 07/17/2019 9:01 PM Signed BP 140/88 Pulse 92 Temp 36.2 ?C (97.1 ?F) (Tympanic) Resp 16 Wt 103 kg (227 lb) SpO2 97% BMI 30.79 kg/m? 43 year old male with c/o sore throat, aches and pain over last 2 weeks. No sinus congestion. Occasional cough. No fever. No close ill c ontacts. Not painful to swallow, scratchy . Took Naproxen and Mucinex this morning, Xyzal for allergies: chemicals, dust. HISTORIES FAMILY HISTORY Problem Relation Age of Onset - Heart Father valvular - Hypertension Father - Stroke Father PAST MEDICAL HISTORY Diagnosis Date - Depressive disorder, not elsewhere classified 09/06/2007 - Empyema (HCC) 2000 - Kidney stone 2013 - Pneumonia X3 PAST SURGICAL HISTORY Procedure Laterality Date - PAST SURGICAL HISTORY OF 2000 Drainage of empyema Social History Tobacco Use - Smoking status: Former Smoker Packs/day: 0.50 Years: 5.00 Pack years: 2.50 Types: Cigarettes Last attempt to quit: 06/04/2013 Years since quittin.1 - Smokeless tobacco: Never Used Substance Use Topics - Alcohol use: No - Drug use: No ACTIVE PROBLEM LIST Congenital Spondylolisthesis History of Pleural Empyema Overweight (Bmi 25.0-29.9) Carpal Tunnel Syndrome, Bilateral Facet Arthropathy, Lumbar Spondylosis of Lumbosacral Region Obstructive Sleep Apnea Current Outpatient Medications Medication Sig Dispense Refill - CPAP Initiate Auto PAP @ 5-20 cm of water with humidificat ion. Mask (per patient preference) optional chin strap (if indicated) , myriam ters, tubing, humidifier and lifetime supplies. 1 Device 0 - lisinopril (ZESTRIL, PRINIVIL) 10 mg tablet Take 1 tablet by mouth once daily. 30 tablet 1 - buPROPion (WELLBUTRIN) 100 mg tablet Take 1 ta blet by mouth twice daily. 60 tablet 5 - cyclobenzaprine (FLEXERIL) 10 mg table t Take 1 tablet by mouth at bedtime as needed. 45 tablet 2 - naproxen sodium (ALEVE) 22 0 mg tablet Take 1 tablet by mouth twice daily with meals. TAKE WITH FOOD 0 No current facility-administered medications for this visit. HIV SCREENING due on 1992 BP CONTROLLED (<130/80) due on 1992 EXAM: OBJECTIVE: BP 140/88 Pulse 92 Temp 36.2 ?C (97.1 ?F) (Tympanic) Resp 16 Wt 103 kg (227 lb) SpO2 97% BMI 30.79 kg/m? General appearance: Pleasant adult man in no acute distress. Respirations: regular, unlabored Color: pink to lips and nailbeds, normal turgor Skin: warm, dry, no unusual rashes or lesions Head: Normocephalic Eyes: sclerae and conjunctivae without injection or exudate, PERRLA, EOMI, corneal light reflex symmetric bilaterally Ears: TM's are clear/ giordano bilaterally with normal corie dmarks, no swelling or deformity ear canal or external ear Nose/Sinuses: Nose patent. No turbinate swelling. Active exu date: none. Maxillary and frontal sinuses nontender to percussion. Oropharynx: oral membranes are moist. Lips, mucosa, and tong ue free from lesions. Gums without inflammation. Posterior pharynx no inj ection, no exudate, no tonsillar hypertrophy. Neck: Neck supple, no lymphadenopathy no; thyroi d without mass or tenderness. Chest: normally shaped, equal expansion with breaths. Lungs: Lungs clear to auscultation and percussion. No crackl es or wheezes. Heart: RRR without murmur, gallop, or rubs. S1 and S2 normal . R. Strep test negative ASSESSMENT/PLAN: 1. Sore throat - ICD9: 462, ICD10: J02.9 - The patient may also use behind the counter Pseudoephedr ine and warm salt water gargles, throat lozenges and/or OTC throat spray as ne eded. - RAPID STREP TEST B/O RUSSELL Turner PA-C 07/17/2019 8:30 PM Addendum Your rapid strep test was negative. A second swab has been s ent for confirmation by DNA probe. Results will be back in 2 days. I t is unlikely that it will be positive, but if it is, you will be no tified and antibiotics will be prescribed. If you haven't heard from us, you may call in 3 days for results. Most sore throats will resol ve without the use of antibiotics. Cold viruses are the most common causes of sore throat. They are transmitted through direct contact and airborne droplets from other infected peop le through coughing or sneezing. Usually the throat pain will resolve over 4-5 da ys, but may occur with or be followed by other symptoms, such as runny nose, stuffiness, head congestion, chest congestion , and cough. Be aware that most sore throats are caused by vi ruses, not strep. The Centers for Disease Control and Prevention (CDC) recommends AGAINST treating sore throats with antibiotics unless the strep test is positive . Strep cannot be diagnosed by symptoms or a physical exam alone. The level of throat pain almonte sn't correlate with whether or not the infection is bacterial or viral. Some of the worst sore throa ts may come from viruses. For example, Najma Lin which causes monon ucleosis may produce painful, inflamed tonsils which exude pus. Coxsacchie virus causes ulceratio ns in the back of the throat which can cause an extremely painful swallow. T hese virus do not respond to antibiotics. Strep. throat is caused by a bacterial infection with Streptococcus Pyogenes. We test and treat for Strep. because of the rare occurrence of Rheumatic Fever which can follow untreated i nfection. This is an autoimmune response in which a particular strain of this ba cteria carries a protein that is similar to that in heart and kidney tissue. The immune system then gets trigger to attack the heart and kidney. Other bacteria and viruses which cause sore thro ats do not need to be treated with antibiotics. Your body will fight them off and develop immunity which will prevent it from occurring again. Your body would also fight off Strep. and get better too, but malsisa use risk of developing rheumatic fever, we treat it differently. Sore throats may also come from other so urces such as environmental allergies, postnasal drainage from changes in tempe rature or humidity, dryness from mouth breathing during sleep, reflux of stomach acids, or even voc al overuse. For sore throat treatment, run a cool mist humid ifier in the sleeping area to keep mucus membranes moist. Drink plenty of flui ds, especially water, juices, and non-caffeinated beverages, (caffeine acts as a diuretic and may worsen dryness). Warm salt water gargles may be soothing (rinse and spit). Chlorseptic spray, lozenges, or regular use of Tylenol, Ad rebecca, or other OTC pain remedies may help. For cold sx: Decongestants such as Sudafed OTC may he lp with nasal stuffiness or facial and sinus pressure. If cough keeps you awake at night, try OTC remedies first, s uch as Nyquil, Delsym, or Mucinex. If this doesn't help you sleep, call the office for a prescription. Be careful if you are combining co ugh and cold medications that you aren't doubling the medicines. If you aren't sure: ask the pharmacist for help. If symptoms fail to improve over then next 3-5 days, call e office. Call sooner if symptoms worsen, fever remains above 1 00.5F more than 48 hours, you are unable to swallow and/or have to drool, swel ling in the throat is causing you to gag, or any other concerning symptoms occur. Referring Provider: SELF [200] Allergies As of Date: 07/17/2019 Noted Allergy Reaction ASA (SALICYLATES) 04/09/2005 2 - Rash BACTRIM (SULFAMETHOXAZOLE-TRIMETH*10/26/2012 14 - Other: See Comments Comments: Photodermatitis BEES 04/09/2005 7 - Swelling LATEX 10/26/2012 14 - Other: See Comments Comments: Dermatology tested. Date Reviewed: 07/17/2019 Reviewed by: Carol Romo Ma - Fully Assessed Reason for Visit: Sore Throat [200] Cmt: bodyaches x couple weeks Primary Visit Diagnosis:Sore throat [J02.9] Order(s):RAPID STREP TEST B/O [[id number]] Order #: [id number] Prescriptions as of 07/17/2019 Sig: CPAP Initiate Auto PAP @ 5-20 cm o* LISINOPRIL 10 MG TABLET Take 1 tablet by mouth once d* BUPROPION HCL 100 MG TABLET Take 1 tablet by mouth twice * CYCLOBENZAPRINE 10 MG TABLET Take 1 tablet by mouth at bed* NAPROXEN SODIUM 220 MG TABLET Take 1 tablet by mouth twice * Problem List As Of Date 07/17/2019 Noted Resolved Depressive disorder, not elsewhere classified [*09/06/2007 0 01/19/2017 SPONDYLOLISTHESIS [Q76.2] 09/06/2007 Essential hypertension, benign [I10] 11/19/2013 01/19/2017 History of pleural empyema [Z87.09] 01/19/2017 More... Overweight (BMI 25.0-29.9) [E66.3] 01/19/2017 More... Carpal tunnel syndrome, bilateral [G56.03] 01/19/2017 Facet arthropathy, lumbar (HCC) [M47.816] 04/26/2017 More... Spondylosis of lumbosacral region [M47.817] 04/26/2017 Obstructive sleep apnea [G47.33] 12/19/2018 Other instructions from your clinician: Your rapid strep test was negative. A second swab has been s ent for confirmation by DNA probe. Results will be back in 2 days. I t is unlikely that it will be positive, but if it is, you will be notified and antibiotics will be prescribed. If you haven't heard from us , you may call in 3 days for results. Most sore throats will resolve without the use of antibiotic s. Cold viruses are the most common causes of sore throat. They are transmitted through direct contact and airborne droplets from other infe cted people through coughing or sneezing. Usually the throat pain will r esolve over 4-5 days, but may occur with or be followed by other symptom s, such as runny nose, stuffiness, head congestion, chest congestion , and cough. Be aware that most sore throats are caused by viruses, not s trep. The Centers for Disease Control and Prevention (CDC) recommends AGAINST treating sore throats with antibiotics unless the strep test is positive. Strep cannot be diagnosed by symptoms or a physical exam ari ne. The level of throat pain doesn't correlate with whether or n ot the infection is bacterial or viral. Some of the worst sore thro ats may come from viruses. For example, Najma Lin which causes mononuc leosis may produce painful, inflamed tonsils which exude pus. Coxsacchi e virus causes ulcerations in the back of the throat which can cause an extremely painful swallow. These virus do not respond to antibiotics. Strep. throat is caused by a bacterial infection with Strept ococcus Pyogenes. We test and treat for Strep. because of the rare o ccurrence of Rheumatic Fever which can follow untreated infection. This i s an autoimmune response in which a particular strain of this ozzy teria carries a protein that is similar to that in heart and kidney tissue . The immune system then gets trigger to attack the heart and kidney. Other bacteria and viruses which cause sore throats do not n eed to be treated with antibiotics. Your body will fight them off and develop immunity which will prevent it from occurring again. Your vj dy would also fight off Strep. and get better too, but because risk of dev eloping rheumatic fever, we treat it differently. Sore throats may also come from other sources such as enviro nmental allergies, postnasal drainage from changes in temperature or humidity, dryness from mouth breathing during sleep, reflux of stomach acids, or even vocal overuse. For sore throat treatment, run a cool mist humidifier in the sleeping area to keep mucus membranes moist. Drink plenty of fluids, espec ially water, juices, and non-caffeinated beverages, (caffeine acts as a d iuretic and may worsen dryness). Warm salt water gargles may be soothing (rinse and spit). Chlorseptic spray, lozenges, or regular use of Tyleno l, Advil, or other OTC pain remedies may help. For cold sx: Decongestants such as Sudafed OTC may help with nasal stuffi ness or facial and sinus pressure. If cough keeps you awake at night, try OTC remedies first, s uch as Nyquil, Delsym, or Mucinex. If this doesn't help you sleep, call the office for a prescription. Be careful if you are combining cough and cold medications that you aren't doubling the medicines. If you aren't sure: ask the pharmacist for help. If symptoms fail to improve over then next 3-5 days, call e office. Call sooner if symptoms worsen, fever remains above 100.5F m ore than 48 hours, you are unable to swallow and/or have to drool, swell ing in the throat is causing you to gag, or any other concerning sympto ms occur. Encounter Status:Closed by Kimberley HARRIS PA-C on 07/17/19 progress on 2019-03 PROGRESS HNO ID: [id number] Normal 04-11-2019 [place] Author: Kassidy Nice [facility] Service: ? [place] Author Type: Physician ([id number]) Type: Progress Notes Filed: 04/11/2019 9:38 AM Note Text: [facility] New Patient Evaluation Deanne Mcgovern was evaluated at the [place] location Time out: 9:36 Time in: 9:13 For this visit, a total [id number] time with the patient c omprised 23 minutes, with at least 50% of that time devoted to face-to-f martha counseling and coordination of care, with especial emphasis placed on a nswering the patient?s and/or family?s questions in a form that they can understand and appreciate. PATIENT NAME: Deanne Mcgovern DATE OF SERVICE: April 03, 2019 Insurance: MMO Home Location: [place] CONSULTING PROVIDER: ROBERTO CARLOS SCHERER MD [id number] [facility] [place] [address] REASON FOR CONSULT: Roberto Carlos Scherer sends the patient for an op inion about treating DARRELL. My findings and recommendations will be transm itted electronically via shared medical record to the consulting michael addison. Relevant Medications, allergies, hx Reviewed: yes HISTORY: DARRELL: With the family hx, was concerned about him having DARRELL, with her noting that he may stop breating during sleep. So she encour aged him to address this. He went to study, and since then has been on A utopap 5-15 cm. She says he is doing better with his sleep; he has not n oted any special benefit so far. He is normally a short sleeper, melisa . Psychiatric disorders: na Other Diagnoses conditioning the treatment plan: Overweight, Congenital spondylolisthesis. SLEEP-WAKE SCHEDULE Bedtime: between 2 and 4 after working second [employer]. Activities before going to bed: Winding down. Reading, TV, Computer in bed? no Sleep Latency: takes 30-45 min. Wake After Sleep Onset: up after 1-2 hours, may get back to sleep. Wake time: 7 this morning Time Out of Bed: same Can Nap if wants to: no He does not take naps. On weekends, he maintains the same sleep schedule. Average total sleep time (in a 24 hour period): 4+ hours. He is a self-described night person SLEEP-RELATED DETAILS Preferred sleep position: back and one side. 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 . Problems with: Memory : a bit. For names concentration. no Irritability: slight Fatigue: no Demoralization: no Role Impairment: no He denies falling asleep or dozing off when driving. Substance Use/Diet: Caffeine: 2 cups Nicotine: no Alcohol: no Vegetarian no Marijuana, Street Drugs: no There has not been a recent change in weight. HYPERSOMNIA: Self-reported daytime sleepiness has no been a problem. A couple concussions when younger. Cataplexy: na Hypnagogic hallucinations: no Dream enactment behaviors: no Sleep related injuries: no SLEEP DISORDER SYMPTOMS He does not report having an urge to move the legs in the ev ening (when resting) that is accompanied or caused by uncomfortable and/ or unpleasant sensations in the legs. He has not been told that he has leg kicking during sleep. The patient reports about: Itching affecting sleep: no Sleep paralysis: no Sleep talking or walking: occ of talking. Nightmares: Frequency: npo Night terrors. Frequency: no Eating at night: no Bed Wetting: Frequency: no OTHER SLEEP BEHAVIORS/COMPLAINTS: Pain at night: Arthritis, not letting him go to sleep. Racing thoughts or rumination: no Morning Headache: every once in a while. Bruxism: no teeth. Waking up with heart pounding or racing: no Nocturnal GERD or aspiration: no Nocturia no Patient-Entered Questionnaire Sleep Scores PAST TREATMENTS: autopap 5-20 from about late December PRIOR SLEEP STUDIES: 08/17/18 ?Time ? RAFAT Supine ?401.0 min ? ?13.9 Off-Supine ? ?0.0 min ? ? ?- Total ? 401.0 min ? ?13.9 OTHER RELEVANT LABS AND STUDIES: Bicarb: 26 BMI 29 A1c: 5.2 Vit D: na Ferritin na TSH: 1.6 Imaging na Ejection fraction 71 PAST MEDICAL HISTORY Diagnosis Date - Depressive disorder, not elsewhere classified 09/06/2007 - Empyema (HCC) 2000 - Kidney stone 2013 - Pneumonia X3 PAST SURGICAL HISTORY Procedure Laterality Date - PAST SURGICAL HISTORY OF 2000 Drainage of empyema ACTIVE PROBLEM LIST Congenital Spondylolisthesis History of Pleural Empyema Overweight (Bmi 25.0-29.9) Carpal Tunnel Syndrome, Bilateral Facet Arthropathy, Lumbar Spondylosis of Lumbosacral Region Obstructive Sleep Apnea Allergies As of Date: 04/11/2019 Allergen Noted Reaction ASA [SALICYLATES] 04/09/2005 Rash BACTRIM [SULFAMETHOXAZOLE-TRIMETH*10/26/2012 Other: See Comm ents BEES 04/09/2005 Swelling LATEX 10/26/2012 Other: See Comments Fully Assessed 03/08/2019 CURRENT MEDICATIONS: CPAP Initiate Auto PAP @ 5-20 cm of water with humidificatio n. Mask (per patient preference) optional chin strap (if indicated) , myriam ters, tubing, humidifier and lifetime supplies. lisinopril (ZESTRIL, PRINIVIL) 10 mg tablet Take 1 tablet by mouth once daily. buPROPion (WELLBUTRIN) 100 mg tablet Take 1 tablet by mouth twice daily. cyclobenzaprine (FLEXERIL) 10 mg tablet Take 1 tablet by federico th at bedtime as needed. naproxen sodium (ALEVE) 220 mg tablet Take 1 tablet by mouth twice daily with meals. TAKE WITH FOOD REVIEW OF SYSTEMS Sleep related General - See HPI. HEENT Eye Problems (eg. Cataracts, glaucoma) no Septal Deviation no Nasal Congestion no Post-Nasal Drip no Mouth Breathing no Morning dry mouth/throat: no RESPIRATORY Nocturnal dyspnea no Dyspnea on exertion no Wheezing no Nocturnal cough no CARDIOVASCULAR Heart failure no Atrial Fibrillation no Orthopnea no Heart Palpitations Has has occ; worked up. Chest Discomfort Has had occ Hypertension under treatment GASTROINTESTINAL Stomach pain during sleep no Blood In Stool no GENITOURINARY Renal Insufficiency no Menstrual pattern na Hot Flashes na MUSCULOSKELETAL Hx of back or neck surgery: no, but has L5 cracked on both s ides. Joint discomfort knees shoulders fingers, hands carpel tunne r. SKIN Rash no ENDOCRINE Diabetes no Thyroid no Steroids of any kind (inc BCPs) no NEUROLOGICAL Headaches no Any Seizure Hx no PSYCHIATRIC Recent stressors no Hx of psychiatric hospitalization no Hx of Yina of any kind no Prior Psychiatric Hx: no Substance abuse Hx no PTSD exposure Yes, but not a major issue. Current employment status: employed FAMILY HISTORY FAMILY HISTORY Problem Relation Age of Onset - Heart Father valvular - Hypertension Father - Stroke Father Sister and Uncle have DARRELL. Sleep disorders when a child/adolescent: no PHYSICAL EXAMINATION: Constitutional/ General appearance: Mild obese MENTAL STATUS Grooming fair, in causal hayde shirt Orientation: Ox3 Memory: Grossly intact Kinetics: normal Eye Contact: fair Speech: Articulate edentulous. Level normal Rate normal Synt ax standare3 Thought Stream logical Thought Content about doing what is requiere Mood: euth Affect: euth Suicidal Ideation: no Homocidal Ideation: No Psychosis no Insight good Judgment good. Skin: Normal Eyes: PERRLA, EOMI without Nystagmus, ENT : Nasal congestion absent, Septal Deviation: no Nasal va lve incompetence absent. Posterior airspace: fair Sousa tongue position 2, retrognathia absent. Edentulous High arched palate present. Tongue scalloping/ridging absent. Uvula: nor mal Neck circumference: 44 cm. thyromegaly or adenopathy absent. Chest: Regular S1 and S2, no Murmurs, Lungs clear to auscult ation in posterior almonte. Abdomen: obese Extremities: Pretibial edema no, Clubbing n Neuro: Gait and station onroam, Strength grossly normal in a ll extremities. Coordination grossly intact. No tremors noted. IMPRESSION/PLAN Regarding Sleep Disorder Diagnoses: Obstructive Sleep Apnea _ mild, benefiting per 's report Psychiatric disorders: na Other Diagnoses conditioning the treatment plan: Overweight, Congenital spondylolisthesis, HTN. Case Formulation / Woodson (may include pt's hopes, fears, ex pectations, concerns): Compliant and benefitting. Download shows AHI of 2.7, with pressures 5-8 used, using th e machine 80% of nights, with minimal leaks. Actions taken: Motivational Interviewing aspects taken Review, Establishing care Follow up yearly with Nisha or Margaret Nice MD Beeper: [id number] cnov on 2019-04-11 CNOV Office Visit (JD) Normal 04-11-[address] [place] [address] DEANNE Fischer ([id number]) 1975 [place] Date Time Provider Department ([id number]) 04/11/19 9:00 AM KASSIDY NICE During your visit today, we recorded the following informati on about you: Pulse Respiration Blood pressure Weight 76/minute 16/minute 136/80 98.4 kg Kassidy Nice MD 04/11/2019 9:[address] [facility] New Patient Evaluation Deanne Mcgovern was evaluated at the [place] location Time out: 9:36 Time in: 9:13 For this visit, a total [id number] time with the patient c omprised 23 minutes, with at least 50% of that time devoted to [id number] counseling and coordination of care, with especial emph asis placed on answering the patient?s and/or family?s questions in a form that they can unde rstand and appreciate. PATIENT NAME: Deanne Mcgovern DATE OF SERVICE: April 03, 2019 Insurance: MMO Home Location: [place] CONSULTING PROVIDER: ROBERTO CARLOS SCHERER MD [id number] [place] [address] REASON FOR CONSULT: Roberto Carlos Scherer sends the patient for an op inion about treating DARRELL. My findings and recommendations will be transm itted electronically via shared medical record to the consulting michael addison. Relevant Medications, allergies, hx Reviewed: yes HISTORY: DARRELL: With the family hx, was concerned about him having DARRELL, with her noting that he may stop breating during sleep. So she encour aged him to address this. He went to study, and since then has been on Autopap 5-15 cm. She says he is doing better with his sleep; he has not noted any special benefit so far. He is normally a short sleeper, though. Psychiatric disorders: na Other Diagnoses conditioning the treatment plan: Overweight, Congenital spondylolisthesis. 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 Activities before going to bed: Winding down. Reading, TV, Computer in bed? no Sleep Latency: takes 30-45 min. Wake After Sleep Onset: up after 1-2 hours, may get back to sleep. Wake time: 7 this morning Time Out of Bed: same Can Nap if wants to: no He does not take naps. On weekends, he maintains the same sleep schedule. Average total sleep time (in a 24 hour period): 4+ hours. He is a self-described night person SLEEP-RELATED DETAILS Preferred sleep position: back and one side. 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 . Problems with: Memory : a bit. For names concentration. no Irritability: slight Fatigue: no Demoralization: no Role Impairment: no He denies falling asleep or dozing off when driving. Substance Use/Diet: Caffeine: 2 cups Nicotine: no Alcohol: no Vegetarian no Marijuana, Street Drugs: no There has not been a recent change in weight. HYPERSOMNIA: Self-reported daytime sleepiness has no been a problem. A couple concussions when younger. Cataplexy: na Hypnagogic hallucinations: no Dream enactment behaviors: no Sleep related injuries: no SLEEP DISORDER SYMPTOMS He does not report having an urge to move the legs in the ev ening (when resting) that is accompanied or caused by uncomfortable and/ or unpleasant sensations in the legs. He has not been told that he has l eg kicking during sleep. The patient reports about: Itching affecting sleep: no Sleep paralysis: no Sleep talking or walking: occ of talking. Nightmares: Frequency: npo Night terrors. Frequency: no Eating at night: no Bed Wetting: Frequency: no OTHER SLEEP BEHAVIORS/COMPLAINTS: Pain at night: Arthritis, not letting him go to sleep. Racing thoughts or rumination: no Morning Headache: every once in a while. Bruxism: no teeth. Waking up with heart pounding or racing: no Nocturnal GERD or aspiration: no Nocturia no Patient-Entered Questionnaire Sleep Scores PAST TREATMENTS: autopap 5-20 from about late December PRIOR SLEEP STUDIES: 08/17/18 ?Time ? RAFAT Supine ?401.0 min ? ?13.9 Off-Supine ? ?0.0 min ? ? ?- Total ? 401.0 min ? ?13.9 OTHER RELEVANT LABS AND STUDIES: Bicarb: 26 BMI 29 A1c: 5.2 Vit D: na Ferritin na TSH: 1.6 Imaging na Ejection fraction 71 PAST MEDICAL HISTORY Diagnosis Date - Depressive disorder, not elsewhere classified 09/06/2007 - Empyema (HCC) 2000 - Kidney stone 2013 - Pneumonia X3 PAST SURGICAL HISTORY Procedure Laterality Date - PAST SURGICAL HISTORY OF 2000 Drainage of empyema ACTIVE PROBLEM LIST Congenital Spondylolisthesis History of Pleural Empyema Overweight (Bmi 25.0-29.9) Carpal Tunnel Syndrome, Bilateral Facet Arthropathy, Lumbar Spondylosis of Lumbosacral Region Obstructive Sleep Apnea Allergies As of Date: 04/11/2019 Allergen Noted Reaction ASA [SALICYLATES] 04/09/2005 Rash BACTRIM [SULFAMETHOXAZOLE-TRIMETH*10/26/2012 Other: See Comm ents BEES 04/09/2005 Swelling LATEX 10/26/2012 Other: See Comments Fully Assessed 03/08/2019 CURRENT MEDICATIONS: CPAP Initiate Auto PAP @ 5-20 cm of water with humidificatio n. Mask (per patient preference) optional chin strap (if indicated) , myriam ters, tubing, humidifier and lifetime supplies. lisinopril (ZESTRIL, PRINIVIL) 10 mg tab let Take 1 tablet by mouth once daily. buPROPion (WELLBUTRIN) 100 mg tablet Take 1 tablet by mouth twice daily. cyclobenzaprine (FLEXERIL) 10 mg tablet Take 1 tablet by mouth at bedtime as needed. naproxen sodium (ALEVE) 220 mg tablet Take 1 tab let by mouth twice daily with meals. TAKE WITH FOOD REVIEW OF SYSTEMS Sleep related General - See HPI. HEENT Eye Problems (eg. Cataracts, glaucoma) no Septal Deviation no Nasal Congestion no Post-Nasal Drip no Mouth Breathing no Morning dry mouth/throat: no RESPIRATORY Nocturnal dyspnea no Dyspnea on exertion no Wheezing no Nocturnal cough no CARDIOVASCULAR Heart failure no Atrial Fibrillation no Orthopnea no Heart Palpitations Has has occ; worked up. Chest Discomfort Has had occ Hypertension under treatment GASTROINTESTINAL Stomach pain during sleep no Blood In Stool no GENITOURINARY Renal Insufficiency no Menstrual pattern na Hot Flashes na MUSCULOSKELETAL Hx of back or neck surgery: no, but has L5 cracked on both s ides. Joint discomfort knees shoulders fingers, hands carpel tunne r. SKIN Rash no ENDOCRINE Diabetes no Thyroid no Steroids of any kind (inc BCPs) no NEUROLOGICAL Headaches no Any Seizure Hx no PSYCHIATRIC Recent stressors no Hx of psychiatric hospitalization no Hx of Yina of any kind no Prior Psychiatric Hx: no Substance abuse Hx no PTSD exposure Yes, but not a major issue. Current employment status: employed FAMILY HISTORY FAMILY HISTORY Problem Relation Age of Onset - Heart Father valvular - Hypertension Father - Stroke Father Sister and Uncle have DARRELL. Sleep disorders when a child/adolescent: no PHYSICAL EXAMINATION: Constitutional/ General appearance: Mild obese MENTAL STATUS Grooming fair, in causal hayde shirt Orientation: Ox3 Memory: Grossly intact Kinetics: normal Eye Contact: fair Speech: Articulate edentulous. Level normal Rate normal Synt ax standare3 Thought Stream logical Thought Content about doing what is requiere Mood: euth Affect: euth Suicidal Ideation: no Homocidal Ideation: No Psychosis no Insight good Judgment good. Skin: Normal Eyes: PERRLA, EOMI without Nystagmus, ENT : Nasal congestion absent, Septal Deviation: no Na taniya valve incompetence absent. Posterior airspace: fair Sousa tongue position 2, retrognathia absent. Edentulous High arched palate present. Tongue scalloping/ridging absent. Uvula: normal Neck circumference: 44 cm. thyromegaly or adenopathy absent. Chest: Regular S1 and S2, no Murmurs, Lungs clear to auscult ation in posterior almonte. Abdomen: obese Extremities: Pretibial edema no, Clubbing n Neuro: Gait and station onroam, Strength grossly normal in all extremities. Coordination grossly intact. No tremors noted. IMPRESSION/PLAN Regarding Sleep Disorder Diagnoses: Obstructive Sleep Apnea _ mild, benefiting per 's report Psychiatric disorders: na Other Diagnoses conditioning the treatment plan: Overweight, Congenital spondylolisthesis, HTN. Case Formulation / [place] (may include pt's hopes, fears, ex pectations, concerns): Compliant and benefitting. Download shows AHI of 2.7, with pressures 5-8 used, us ing the machine 80% of nights, with minimal leaks. Actions taken: Motivational Interviewing aspects taken Review, Establishing care Follow up yearly with Nisha or Margaret Nice MD Beeper: [id number] Referring Provider: ROBERTO CARLOS SCHERRE [[id number]] Allergies As of Date: 04/11/2019 Noted Allergy Reaction ASA (SALICYLATES) 04/09/2005 2 - Rash BACTRIM (SULFAMETHOXAZOLE-TRIMETH*10/26/2012 14 - Other: See Comments Comments: Photodermatitis BEES 04/09/2005 7 - Swelling LATEX 10/26/2012 14 - Other: See Comments Comments: Dermatology tested. Date Reviewed: 04/11/2019 Reviewed by: Alejandrina Cruz MA - Fully Assessed Reason for Visit: Sleep Apnea [1361] New Patient Evaluation [154] Primary Visit Diagnosis:Obstructive sleep apnea [G47.33] Other Visit Diagnoses:Overweight (BMI 25.0-29.9) [E66.3] Congenital spondylolisthesis [Q76.2] Prescriptions as of 04/11/2019 Sig: CPAP Initiate Auto PAP @ 5-20 cm o* LISINOPRIL 10 MG TABLET Take 1 tablet by mouth once d* BUPROPION HCL 100 MG TABLET Take 1 tablet by mouth twice * CYCLOBENZAPRINE 10 MG TABLET Take 1 tablet by mouth at bed* NAPROXEN SODIUM 220 MG TABLET Take 1 tablet by mouth twice * Problem List As Of Date 04/11/2019 Noted Resolved Depressive disorder, not elsewhere classified [*09/06/2007 0 01/19/2017 SPONDYLOLISTHESIS [Q76.2] 09/06/2007 Essential hypertension, benign [I10] 11/19/2013 01/19/2017 History of pleural empyema [Z87.09] 01/19/2017 More... Overweight (BMI 25.0-29.9) [E66.3] 01/19/2017 More... Carpal tunnel syndrome, bilateral [G56.03] 01/19/2017 Facet arthropathy, lumbar (HCC) [M47.816] 04/26/2017 More... Spondylosis of lumbosacral region [M47.817] 04/26/2017 Obstructive sleep apnea [G47.33] 12/19/2018 Disposition: Return in about 1 year (around 04/11/2020). Follow-up and Disposition History Recorded Encounter Status:Closed by MD KASSIDY NICE on 04/11/19 progress on 2019-02 PROGRESS HNO ID: [id number] Normal 03-08-2019 [facility] Author: Roberto Carlos Scherer [place] ([id number]) Service: ? Author Type: Physician Type: Progress Notes Filed: 03/08/2019 10:32 AM Note Text: Reason for Visit Patient presents with: Established Patient: follow up- CPAP Deanne Kurt Mcgovern is a 43 year old male who presents here today for Above Complaints.. Health Maintenance BP CONTROLLED (<130/80) INFLUENZA(1) HPI He has not been able to get to the appointment for adhd eval uation. Patient has been using his sleep machine, he thinks it is wo rking very well for him. He has used it for atleast a month but feels no difference. Some hiccups initially HTN: Compliant with medications. Denies any chest pain, palp itations, or edema. No SOB. Doesn't check BP at home generally. Careful with diet to avoid salt, trying to eat more fruits a nd vegetables, exercises regularly. He is not as fidgety as before but still restless due to the pain in his back. Patient notes he stood up and sneezed and got a muscle issue. No problem-specific Assessment AND Plan notes found for this encounter. PAST MEDICAL HISTORY Diagnosis Date - Depressive disorder, not elsewhere classified 09/06/2007 - Empyema (HCC) 2000 - Kidney stone 2012 - Pneumonia X3 PAST SURGICAL HISTORY Procedure Laterality Date - PAST SURGICAL HISTORY OF 2000 Drainage of empyema FAMILY HISTORY Problem Relation Age of Onset - Heart Father valvular - Hypertension Father - Stroke Father Social History Tobacco Use - Smoking status: Former Smoker Packs/day: 0.50 Years: 5.00 Pack years: 2.50 Types: Cigarettes Last attempt to quit: 06/04/2013 Years since quittin.7 - Smokeless tobacco: Never Used Substance Use Topics - Alcohol use: No - Drug use: No Past medical history, appointments, medications, allergies r eviewed. Pertinent Lab/Diagnostic Studies are reviewed and discussed today Current Outpatient Medications: - CPAP - lisinopril (ZESTRIL, PRINIVIL) 10 mg tablet - buPROPion (WELLBUTRIN) 100 mg tablet - cyclobenzaprine (FLEXERIL) 10 mg tablet - naproxen sodium (ALEVE) 220 mg tablet Review of Systems CONSTITUTIONAL: No fevers, chills night sweats, unintended w eight loss CARDIOVASCULAR: No chest pain, dyspnea, palpitations, orthop theo, PND, ankle edema. PULM: No dyspnea, unexplained cough. GI: No dysphagia/odynophagia, problematic reflux, constipati on, diarrhea, changes in stool habits, hematochezia, melena. : No new urinary complaints, including dysuria, gross stella turia or pyuria. NEURO: No new balance problems, peripheral weakness/paresthe singh or numbness of concern. Physical Exam BP 128/76 (BP Site: Left Arm, BP Position: Sitting, BP Cuff Size: Large Adult) Pulse 63 Resp 12 Ht 182.9 cm (6') Wt 97.1 kg (214 lb) SpO2 98% BMI 29.02 kg/m? General appearance: Well appearing, alert, in no acute distr ess, well nourished. Skin: Skin color, texture, turgor normal, no suspicious rash es or lesions Head: Normocephalic, no masses, lesions, tenderness or abnor malities Eyes: Anicteric sclera. Pupils are equally round and reactiv e to light. Extraocular movements are intact. Lungs: Lungs clear to auscultation. No wheezing, rhonchi, ra les Heart: RRR without murmur, gallop, or rubs. Extremities: No deformities, edema, skin discoloration, club alisha or cyanosis. Good capillary refill. ASSESSMENT/PLAN: 1. Obstructive sleep apnea - ICD9: 327.23, ICD10: G47.33 (pr imary diagnosis) Uses his machine notes little change but I still encouraged him to use it 2. Essential hypertension - ICD9: 401.9, ICD10: I10 - good control - Recommended regular aerobic exercise. - Recommend home blood pressure monitoring, to bring results in on next visit - Goal of BP <130/80 3. Chronic bilateral low back pain without sciatica - ICD9: 724.2, 338.29, ICD10: M54.5, G89.29 Mechanical low back pain - Patient given instructions ROBERTO CARLOS SCHERER MD cnov on 2019-03-08 CNOV Office Visit (INTMWS) Normal 03-08-[address] [place] [address] Clinic DEANNE MCGOVERN ([id number]) 1975 [place] Date Time Provider Department ([id number]) 03/08/19 9:40 AM ROBERTO CARLOS SCHERER INTMWS During your visit today, we recorded the following informati on about you: Pulse Respiration Blood pressure Weight 63/minute 12/minute 128/76 97.1 kg Height 1.829 m ROBERTO CARLOS SCHERER MD 03/08/2019 10:32 AM Signed Reason for Visit Patient presents with: Established Patient: follow up- CPAP Deanne Mcgovern is a 43 year old male who presents here today for Above Complaints.. Health Maintenance BP CONTROLLED (<130/80) INFLUENZA(1) HPI He has not been able to get to the appointment for adhd eval uation. Patient has been using his s leep machine, he thinks it is working very well for him. He has used it for atleast a month but feels no difference. Some hiccups initially HTN: Compliant with medicati ons. Denies any chest pain, palpitations, or edema. No SOB. Doesn't check BP at home generally. Careful with diet to avoid salt, trying to eat more fruits a nd vegetables, exercises regularly. He is not as fidgety as before but still restless due to the pain in his back. Patient notes he stood up and sneezed and got a muscle issue . No problem-specific Assessment AND Plan notes found for this encounter. PAST MEDICAL HISTORY Diagnosis Date - Depressive disorder, not elsewhere classified 09/06/2007 - Empyema (HCC) 2000 - Kidney stone 2012 - Pneumonia X3 PAST SURGICAL HISTORY Procedure Laterality Date - PAST SURGICAL HISTORY OF 2000 Drainage of empyema FAMILY HISTORY Problem Relation Age of Onset - Heart Father valvular - Hypertension Father - Stroke Father Social History Tobacco Use - Smoking status: Former Smoker Packs/day: 0.50 Years: 5.00 Pack years: 2.50 Types: Cigarettes Last attempt to quit: 06/04/2013 Years since quittin.7 - Smokeless tobacco: Never Used Substance Use Topics - Alcohol use: No - Drug use: No Past medical history, appointments, medications, allergies r eviewed. Pertinent Lab/Diagnostic Studies are reviewed and discussed today Current Outpatient Medications: - CPAP - lisinopril (ZESTRIL, PRINIVIL) 10 mg tablet - buPROPion (WELLBUTRIN) 100 mg tablet - cyclobenzaprine (FLEXERIL) 10 mg tablet - naproxen sodium (ALEVE) 220 mg tablet Review of Systems CONSTITUTIONAL: No fevers, chills night sweats, unintended w eight loss CARDIOVASCULAR: No chest pain, dyspnea, palpitations, orth opnea, PND, ankle edema. PULM: No dyspnea, unexplained cough. GI: No dysphagia/odynophagia, problematic reflux, constipati on, diarrhea, changes in stool habits, hematochezia, melena. : No new urinary complaints, including dysuria, areli s hematuria or pyuria. NEURO: No new balance problems, peripheral weakness/pa resthesias or numbness of concern. Physical Exam BP 128/76 (BP Site: Left Arm, BP Positio n: Sitting, BP Cuff Size: Large Adult) Pulse 63 Resp 12 Ht 182.9 cm (6') Wt 97.1 kg (214 lb ) SpO2 98% BMI 29.02 kg/m? General appearance: Well norman earing, alert, in no acute distress, well nourished. Skin: Skin color, texture, turgor normal, no suspicious rash es or lesions Head: Normocephalic, no masses, lesions, tenderness or abnor malities Eyes: Anicteric sclera. Pupils are equally round and reactiv e to light. Extraocular movements are intact. Lungs: Lungs clear to auscultation. No wheezing, rhonchi, ra les Heart: RRR without murmur, gallop, or rubs. Extremities: No deformities, edema, skin discolo ration, clubbing or cyanosis. Good capillary refill. ASSESSMENT/PLAN: 1. Obstructive sleep apnea - ICD9: 327.23, ICD10: G47. 33 (primary diagnosis) Uses his machine notes little change but I still encouraged him to use it 2. Essential hypertension - ICD9: 401.9, ICD10: I10 - good control - Recommended regular aerobic exercise. - Recommend home blood pressure monitoring, to b ring results in on next visit - Goal of BP <130/80 3. Chronic bilateral low back pain without sciatica - ICD9: 724.2, 338.29, ICD10: M54.5, G89.29 Mechanical low back pain - Patient given instructions ROBERTO CARLOS SCHERER MD Allergies As of Date: 03/08/2019 Noted Allergy Reaction ASA (SALICYLATES) 04/09/2005 2 - Rash BACTRIM (SULFAMETHOXAZOLE-TRIMETH*10/26/2012 14 - Other: See Comments Comments: Photodermatitis BEES 04/09/2005 7 - Swelling LATEX 10/26/2012 14 - Other: See Comments Comments: Dermatology tested. Date Reviewed: 03/08/2019 Reviewed by: Leona Ramirez LPN - Fully Assessed Reason for Visit: Established Patient [175] Cmt: follow up- CPAP Primary Visit Diagnosis:Obstructive sleep apnea [G47.33] Other Visit Diagnoses:Essential hypertension [I10] Chronic bilateral low back pain without sciatica [M54.5, G89.29] Prescriptions as of 03/08/2019 Sig: CPAP Initiate Auto PAP @ 5-20 cm o* LISINOPRIL 10 MG TABLET Take 1 tablet by mouth once d* BUPROPION HCL 100 MG TABLET Take 1 tablet by mouth twice * CYCLOBENZAPRINE 10 MG TABLET Take 1 tablet by mouth at bed* NAPROXEN SODIUM 220 MG TABLET Take 1 tablet by mouth twice * Problem List As Of Date 03/08/2019 Noted Resolved Depressive disorder, not elsewhere classified [*INVALID FOR* 01/19/2017 SPONDYLOLISTHESIS [Q76.2] INVALID FOR* Essential hypertension, benign [I10] INVALID FOR*01/19/2017 History of pleural empyema [Z87.09] INVALID FOR* More... Overweight (BMI 25.0-29.9) [E66.3] INVALID FOR* More... Carpal tunnel syndrome, bilateral [G56.03] INVALID FOR* Facet arthropathy, lumbar (HCC) [M47.816] INVALID FOR* More... Spondylosis of lumbosacral region [M47.817] INVALID FOR* Obstructive sleep apnea [G47.33] INVALID FOR* Encounter Status:Closed by ROBERTO CARLOS SCHERER MD on 03/08/19 progress on 2019-02 PROGRESS HNO ID: [id number] Normal 02-24-2019 [place] Author: Ale Gonzalez) [facility] Service: ? [place] Author Type: Nurse Practitioner ([id number]) Type: Progress Notes Filed: 02/24/2019 9:24 AM Note Text: 02/24/2019 Patient presents with: Sinusitis: x 1 day SUBJECTIVE: This is a 43 year old that is here today for Abo ve Complaints. Started yesterday with drainage in throat. Also having press ure in ears and sinus pressure. Dry cough. Has used OTC nighttime cough and cold without much relief. sinus. Denies fevers, chills, SOB, dyspnea, wheezing, sore throat, or chest pain. PAST MEDICAL HISTORY Diagnosis Date - Depressive disorder, not elsewhere classified 09/06/2007 - Empyema (HCC) 2000 - Kidney stone 2012 - Pneumonia X3 ALLERGIES Asa [Salicylates]; Bactrim [Sulfamethoxazole-Trime thoprim]; Bees; Latex MEDICATIONS Current Outpatient Medications: CPAP Initiate Auto PAP @ 5-20 cm of water with humidificatio n. Mask (per patient preference) optional chin strap (if indicated) , myriam ters, tubing, humidifier and lifetime supplies. lisinopril (ZESTRIL, PRINIVIL) 10 mg tablet Take 1 tablet by mouth once daily. buPROPion (WELLBUTRIN) 100 mg tablet Take 1 tablet by mouth twice daily. cyclobenzaprine (FLEXERIL) 10 mg tablet Take 1 tablet by federico th at bedtime as needed. naproxen sodium (ALEVE) 220 mg tablet Take 1 tablet by mouth twice daily with meals. TAKE WITH FOOD No current facility-administered medications for this visit. Medications and allergies reviewed by this provider. 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 Financial resource strain: Not on file Food insecurity: Worry: Not on file Inability: Not on file Transportation needs: Medical: Not on file Non-medical: Not on file Tobacco Use Smoking status: Former Smoker Packs/day: 0.50 Years: 5.00 Pack years: 2.5 Types: Cigarettes Quit date: 06/04/2013 Years since quittin.7 Smokeless tobacco: Never Used Substance and Sexual Activity Alcohol use: No Drug use: No Sexual activity: Not Currently Partners: Female Lifestyle Physical activity: Days per week: Not on file Minutes per session: Not on file Stress: Not on file Relationships Social connections: Talks on phone: Not on file Gets together: Not on file Attends hindu service: Not on file Active member of club or organization: Not on file Attends meetings of clubs or organizations: Not on file Relationship status: Not on file Intimate partner violence: Fear of current or ex partner: Not on file Emotionally abused: Not on file Physically abused: Not on file Forced sexual activity: Not on file Other Topics Concerns: Not on file Social History Narrative , has 1 child who is 24 years. REVIEW OF SYSTEMS All other reviewed and negative other than HPI. OBJECTIVE: BP 116/84 Pulse 96 Temp 36.6 ?C (97.8 ?F) (Left Tympanic ) Resp 16 Wt 94.2 kg (207 lb 9.6 oz) SpO2 97% BMI 28.16 kg/m? . Vital signs reviewed by this provider. APPEARANCE Well appearing, alert, in no acute distress, well -hydrated, well nourished. EYES PERRLA, conjunctiva and sclera normal. EARS left external ear normal, canal clear, Positive finding s: R TM: obscured by cerumen Small NOSE/SINUS Nares normal. Septum midline. Mucosa normal. No d rainage or sinus tenderness. THROAT normal, no erythema NECK Supple, no adenopathy; HEART RRR with normal S1 and S2, no murmurs, no gallops, no JVD appreciated LUNG clear to auscultation. No wheezes, rhonchi, or rales SKIN Skin color, texture, turgor normal, no suspicious rashe s or lesions to exposed skin ASSESSMENT/PLAN: 1. Viral upper respiratory tract infection - ICD9: 465.9, IC D10: J06.9 - Discussed viral etiology and rationale for treatment. - Symptomatic treatment with prn analgesia - Supportive care with fluids and rest - The patient may also use OTC decongestants prn, behind the counter Pseudoephedrine and nasal saline gtts and suction prn. - Follow up in 3-5 days if symptoms persist or sooner if wor sening of symptoms Ale Podlogar, ASSESSMENT CONSULTANT.INFORMATION STRATEGIST Prescription instructions reviewed with patient as applicabl e. Patient advised if symptoms do not improve or if symptoms worsen vandana ner, to contact their primary care physician. Potential red flag sym ptoms discussed with the patient. Reviewed appropriate action plan to take if red flag symptoms occur. Patient agreeable to treatment plan . cnov on 2019-02-24 CNOV Office Visit ([facility]) Normal 02-25-20 19 [place] DEANNE Fischer ([id number]) 1975 [facility] Date Time Provider Department ([id number]) 02/24/19 9:15 AM ALE HACKETT ([place]) [facility] During your visit today, we recorded the following informati on about you: Temperature Pulse Respiration Blood pressure 97.8 degrees 96/minute 16/minute 116/84 Weight 94.2 kg Ale Hackett APRN.CNP 02/24/2019 9:24 AM Signed 02/24/2019 Patient presents with: Sinusitis: x 1 day SUBJECTIVE: This is a 43 year old that is here today for Abo ve Complaints. Started yesterday with drainage in throat. Also having pre ssure in ears and sinus pressure. Dry cough. Has used OTC nighttim e cough and cold without much relief. sinus. Denies fevers, chills, SOB, dyspnea, wheezing, sore throat, or chest pain. PAST MEDICAL HISTORY Diagnosis Date - Depressive disorder, not elsewhere classified 09/06/2007 - Empyema (HCC) 2000 - Kidney stone 2012 - Pneumonia X3 ALLERGIES Asa [Salicylates]; Bactrim [Sulfamethoxazole-Tri methoprim]; Bees; Latex MEDICATIONS Current Outpatient Medications: CPAP Initiate Auto PAP @ 5-20 cm of water with humidificatio n. Mask (per patient preference) optional chin strap (if indicated) , myriam ters, tubing, humidifier and lifetime supplies. lisinopril (ZESTRIL, PRINIVIL) 10 mg tab let Take 1 tablet by mouth once daily. buPROPion (WELLBUTRIN) 100 mg tablet Take 1 tablet by mouth twice daily. cyclobenzaprine (FLEXERIL) 10 mg tablet Take 1 tablet by mouth at bedtime as needed. naproxen sodium (ALEVE) 220 mg tablet Take 1 tab let by mouth twice daily with meals. TAKE WITH FOOD No current facility-administered medications for this visit. Medications and allergies reviewed by this provider. 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: [employer] Social Needs Financial resource strain: Not on file Food insecurity: Worry: Not on file Inability: Not on file Transportation needs: Medical: Not on file Non-medical: Not on file Tobacco Use Smoking status: Former Smoker Packs/day: 0.50 Years: 5.00 Pack years: 2.5 Types: Cigarettes Quit date: 06/04/2013 Years since quittin.7 Smokeless tobacco: Never Used Substance and Sexual Activity Alcohol use: No Drug use: No Sexual activity: Not Currently Partners: Female Lifestyle Physical activity: Days per week: Not on file Minutes per session: Not on file Stress: Not on file Relationships Social connections: Talks on phone: Not on file Gets together: Not on file Attends hindu service: Not on file Active member of club or organization: Not on file Attends meetings of clubs or organizations: Not on file Relationship status: Not on file Intimate partner violence: Fear of current or ex partner: Not on file Emotionally abused: Not on file Physically abused: Not on file Forced sexual activity: Not on file Other Topics Concerns: Not on file Social History Narrative , has 1 child who is 24 years. REVIEW OF SYSTEMS All other reviewed and negative other than HPI. OBJECTIVE: BP 116/84 Pulse 96 Temp 36.6 ?C (97.8 ?F) (Left Tympanic ) Resp 16 Wt 94.2 kg (207 lb 9.6 oz) SpO2 97% BMI 28.16 kg/m? . Vi farhan signs reviewed by this provider. APPEARANCE Well appearing, alert, in no acute distress, we ll-hydrated, well nourished. EYES PERRLA, conjunctiva and sclera normal. EARS left external ear normal, canal clear, Posi tive findings: R TM: obscured by cerumen Small NOSE/SINUS Nares normal. Septum midline. Mucosa normal . No drainage or sinus tenderness. THROAT normal, no erythema NECK Supple, no adenopathy; HEART RRR with normal S1 and S2, no murmurs, no gallops, n o JVD appreciated LUNG clear to auscultation. No wheezes, rhonchi, or rales SKIN Skin color, texture, turgor normal, no suspicious sammy hes or lesions to exposed skin ASSESSMENT/PLAN: 1. Viral upper respiratory tract infection - ICD9: 465.9, IC D10: J06.9 - Discussed viral etiology and rationale for treatment. - Symptomatic treatment with prn analgesia - Supportive care with fluids and rest - The patient may also use OTC decongestants prn, behind the counter Pseudoephedrine and nasal saline gtts and suction prn. - Follow up in 3-5 days if symptoms pers ist or sooner if worsening of symptoms Ale PodlogSOFIYA riley.ROSAURA Prescription instructions reviewed with patient as applicable. Patient advised if symptoms do not improve or if symptoms worsen sooner, to contact their primary care physician. Potential red flag symptoms discusse d with the patient. Reviewed appropriate action plan to luzma e if red flag symptoms occur. Patient agreeable to treatment plan. Ale Hackett APRN.CNP 02/24/2019 9:18 AM Signed Use behind the counter decongestant- ask pharmacist Mucinex for thick mucous with lots of water Referring Provider: SELF [200] Allergies As of Date: 02/24/2019 Noted Allergy Reaction ASA (SALICYLATES) 04/09/2005 2 - Rash BACTRIM (SULFAMETHOXAZOLE-TRIMETH*10/26/2012 14 - Other: See Comments Comments: Photodermatitis BEES 04/09/2005 7 - Swelling LATEX 10/26/2012 14 - Other: See Comments Comments: Dermatology tested. Date Reviewed: 02/24/2019 Reviewed by: Lady Palm Ma - Fully Assessed Reason for Visit: Sinusitis [127] Cmt: x 1 day Primary Visit Diagnosis:Viral upper respiratory tract infect ion [J06.9] Prescriptions as of 02/24/2019 Sig: CPAP Initiate Auto PAP @ 5-20 cm o* LISINOPRIL 10 MG TABLET Take 1 tablet by mouth once d* BUPROPION HCL 100 MG TABLET Take 1 tablet by mouth twice * CYCLOBENZAPRINE 10 MG TABLET Take 1 tablet by mouth at bed* NAPROXEN SODIUM 220 MG TABLET Take 1 tablet by mouth twice * Problem List As Of Date 02/24/2019 Noted Resolved Depressive disorder, not elsewhere classified [*INVALID FOR* 01/19/2017 SPONDYLOLISTHESIS [Q76.2] INVALID FOR* Essential hypertension, benign [I10] INVALID FOR*01/19/2017 History of pleural empyema [Z87.09] INVALID FOR* More... Overweight (BMI 25.0-29.9) [E66.3] INVALID FOR* More... Carpal tunnel syndrome, bilateral [G56.03] INVALID FOR* Facet arthropathy, lumbar (HCC) [M47.816] INVALID FOR* More... Spondylosis of lumbosacral region [M47.817] INVALID FOR* Obstructive sleep apnea [G47.33] INVALID FOR* Other instructions from your clinician: Use behind the counter decongestant- ask pharmacist Mucinex for thick mucous with lots of water Follow-up and Disposition History Recorded Encounter Status:Closed by PODLOGALE RILEY CNP on 02/24/19 xr shldr >/=3v ap/winifred ap/othr rt on 2019-02-06 XR SHLDR >/=3V * * *Final Report* * * Normal [facility] AP/WINIFRED AP/OTHR DATE OF EXAM: Feb 06 2019 10:04AM [place] ([id number]) RT WOX [id number] - XR SHLDR >/=3V AP/WINIFRED AP/OTHR RT / [id number] PROCEDURE REASON: Acute pain of right shoulder * * * * Physician Interpretation * * * * Indication: Right shoulder pain Comparison: None 3 views of the right shoulder are obtained. There is normal architecture and mineralization of the bones. There is no acute fracture or dislocation. Joint spaces are maintained. Impression: 1. No acute fracture or dislocation. Art Manager: JUDITH Transcribe Date/Time: Feb 06 2019 10:13A Dictated by : NOELLE WALTER MD This examination was interpreted and the report reviewed and electronically signed by: NOELLE WALTER MD on Feb 06 2019 10:14AM EST [id number] progress on 2019-01 PROGRESS HNO ID: [id number] Normal 02-06-2019 [facility] Author: Jeanne Meyer (Rt) Angle [place]menta ([id number]) Service: ? Author Type: Senior Clinical Research Scientist Type: Progress Notes Filed: 02/06/2019 10:05 AM Note Text: Radiology Service Progress Note PATIENT NAME: Deanne Mcgovern DATE OF SERVICE: February 06, 2019 TIME: 9:57 AM PATIENT IDENTITY VERIFICATION COMPLETED USING TWO (2) METHOD S: Name and Date of confirmed by patient verbally. PATIENT GENDER DATA: Male PATIENT RELEVANT IMPLANT DATA REVIEWED: Not Applicable RADIOLOGY DEPARTMENT: General X-ray: Exam(s) Completed: Ches t X-Ray PERIPHERAL IV DATA: Not applicable SIGNED BY: RT Jerome February 06, 2019 9:57 AM PROGRESS HNO ID: [id number] Normal 02-06-2019 [facility] Author: Fe Vaughan) Mehdi [place] ([id number]) Service: ? Author Type: Physician Guest Service Team Leader Type: Progress Notes Filed: 02/08/2019 8:09 AM Note Text: 02/06/2019 Patient presents with: Pain (Shoulder Pain): right x 2-4 weeks, denies injury SUBJECTIVE: This is a 43 year old that is here today for Com plaint(s) of right should pain x 2-4 weeks. Started gradually. Occasional pain at night. Raising the shoulder causes worsening pain. States he tried to do a bench press and felt pain, no problem bicep curls, but melissa n with triceps workout per patient. Tried flexeril last night. Has been luzma ing naproxen without significant relief. Taking daily. PAST MEDICAL HISTORY Diagnosis Date - Depressive disorder, not elsewhere classified 09/06/2007 - Empyema (HCC) 2000 - Kidney stone 2012 - Pneumonia X3 ALLERGIES Asa [Salicylates]; Bactrim [Sulfamethoxazole-Trime thoprim]; Bees; Latex MEDICATIONS Current Outpatient Medications: CPAP Initiate Auto PAP @ 5-20 cm of water with humidificatio n. Mask (per patient preference) optional chin strap (if indicated) , myriam ters, tubing, humidifier and lifetime supplies. lisinopril (ZESTRIL, PRINIVIL) 10 mg tablet Take 1 tablet by mouth once daily. buPROPion (WELLBUTRIN) 100 mg tablet Take 1 tablet by mouth twice daily. cyclobenzaprine (FLEXERIL) 10 mg tablet Take 1 tablet by federico th at bedtime as needed. naproxen sodium (ALEVE) 220 mg tablet Take 1 tablet by mouth twice daily with meals. TAKE WITH FOOD No current facility-administered medications for this visit. 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: [employer] Social Needs Financial resource strain: Not on file Food insecurity: Worry: Not on file Inability: Not on file Transportation needs: Medical: Not on file Non-medical: Not on file Tobacco Use Smoking status: Former Smoker Packs/day: 0.50 Years: 5.00 Pack years: 2.5 Types: Cigarettes Quit date: 06/04/2013 Years since quittin.6 Smokeless tobacco: Never Used Substance and Sexual Activity Alcohol use: No Drug use: No Sexual activity: Not Currently Partners: Female Lifestyle Physical activity: Days per week: Not on file Minutes per session: Not on file Stress: Not on file Relationships Social connections: Talks on phone: Not on file Gets together: Not on file Attends hindu service: Not on file Active member of club or organization: Not on file Attends meetings of clubs or organizations: Not on file Relationship status: Not on file Intimate partner violence: Fear of current or ex partner: Not on file Emotionally abused: Not on file Physically abused: Not on file Forced sexual activity: Not on file Other Topics Concerns: Not on file Social History Narrative , has 1 child who is 24 years. REVIEW OF SYSTEMS See HPI OBJECTIVE: BP 122/76 Pulse 78 Temp 36 ?C (96.8 ?F) (Tympanic) Res p 16 Wt 96.2 kg (212 lb) BMI 28.75 kg/m? APPEARANCE Well appearing, alert, in no acute distress, well -hydrated, well nourished. EXTREMITIES normal ROM left shoulder. Right shoulder with normal ROM, pain with external rotation and internal rotation and abduction. No erythema or edema. Rotator cuff s trength testing intact. No TTP bicipital groove. Negative speed's. ASSESSMENT/PLAN: 1. Acute pain of right shoulder - ICD9: 719.41, ICD10: M25.5 11 Suspect rotator cuff tendonitis Ice, rest, gentle ROM. Consider PT if not improving. - XR SHOULDER GENERAL 3V OR MORE AP/TRUE AP/OTHER RT - METHYLPREDNISOLONE 4 MG TABLETS IN A DOSE PACK The patient indicates understanding of these issues and agre es with the plan. Reviewed red flags and when to seek care sooner. Fe Harding PA-C cnov on 2019-02-06 CNOV Office Visit ([facility]) Normal 02-07-20 19 [place] [facility] SWISSDEANNE SYLVESTER ([id number]) 1975 [place] Date Time Provider Department ([id number]) 02/06/19 9:45 AM FE HARDING) [facility] During your visit today, we recorded the following informati on about you: Temperature Pulse Respiration Blood pressure 96.8 degrees 78/minute 16/minute 122/76 Weight 96.2 kg Fe Harding PA-C 02/08/2019 8:09 AM Signed 02/06/2019 Patient presents with: Pain (Shoulder Pain): right x 2-4 weeks, denies injury SUBJECTIVE: This is a 43 year old that i s here today for Complaint(s) of right should pain x 2-4 weeks. Started gradually. Occasional pain at night. Raising the shoulder causes worsening pain. States he tried to do a bench press and felt pain, no problem bicep cu rls, but pain with triceps workout per patient. Tried flexeril last night. Has been taking naproxen without significant relief. Taking daily. PAST MEDICAL HISTORY Diagnosis Date - Depressive disorder, not elsewhere classified 09/06/2007 - Empyema (HCC) 2000 - Kidney stone 2012 - Pneumonia X3 ALLERGIES Asa [Salicylates]; Bactrim [Sulfamethoxazole-Tri methoprim]; Bees; Latex MEDICATIONS Current Outpatient Medications: CPAP Initiate Auto PAP @ 5-20 cm of water with humidificatio n. Mask (per patient preference) optional chin strap (if indicated) , myriam ters, tubing, humidifier and lifetime supplies. lisinopril (ZESTRIL, PRINIVIL) 10 mg tab let Take 1 tablet by mouth once daily. buPROPion (WELLBUTRIN) 100 mg tablet Take 1 tablet by mouth twice daily. cyclobenzaprine (FLEXERIL) 10 mg tablet Take 1 tablet by mouth at bedtime as needed. naproxen sodium (ALEVE) 220 mg tablet Take 1 tab let by mouth twice daily with meals. TAKE WITH FOOD No current facility-administered medications for this visit. 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: [employer] Financial resource strain: Not on file Food insecurity: Worry: Not on file Inability: Not on file Transportation needs: Medical: Not on file Non-medical: Not on file Tobacco Use Smoking status: Former Smoker Packs/day: 0.50 Years: 5.00 Pack years: 2.5 Types: Cigarettes Quit date: 06/04/2013 Years since quittin.6 Smokeless tobacco: Never Used Substance and Sexual Activity Alcohol use: No Drug use: No Sexual activity: Not Currently Partners: Female Lifestyle Physical activity: Days per week: Not on file Minutes per session: Not on file Stress: Not on file Relationships Social connections: Talks on phone: Not on file Gets together: Not on file Attends hindu service: Not on file Active member of club or organization: Not on file Attends meetings of clubs or organizations: Not on file Relationship status: Not on file Intimate partner violence: Fear of current or ex partner: Not on file Emotionally abused: Not on file Physically abused: Not on file Forced sexual activity: Not on file Other Topics Concerns: Not on file Social History Narrative , has 1 child who is 24 years. REVIEW OF SYSTEMS See HPI OBJECTIVE: BP 122/76 Pulse 78 Temp 36 ?C (96.8 ?F) (Tympanic) Res p 16 Wt 96.2 kg (212 lb) BMI 28.75 kg/m? APPEARANCE Well appearing, alert, in no acute distress, we ll-hydrated, well nourished. EXTREMITIES normal ROM left shoulder. Right shoulder with normal ROM, pain with external rotation and internal rotation and abduction. No erythema or edema. Rotator cuff strength testing intact. No TTP bicipital groove. Negative speed's. ASSESSMENT/PLAN: 1. Acute pain of right shoulder - ICD9: 719.41, ICD10: M25.5 11 Suspect rotator cuff tendonitis Ice, rest, gentle ROM. Consider PT if not improving. - XR SHOULDER GENERAL 3V OR MORE AP/TRUE AP/OTHER RT - METHYLPREDNISOLONE 4 MG TABLETS IN A DOSE PACK The patient indicates understanding of these iss ues and agrees with the plan. Reviewed red flags and when to seek care sooner. Fe Harding PA-C Referring Provider: SELF [200] Allergies As of Date: 02/06/2019 Noted Allergy Reaction ASA (SALICYLATES) 04/09/2005 2 - Rash BACTRIM (SULFAMETHOXAZOLE-TRIMETH*10/26/2012 14 - Other: See Comments Comments: Photodermatitis BEES 04/09/2005 7 - Swelling LATEX 10/26/2012 14 - Other: See Comments Comments: Dermatology tested. Date Reviewed: 02/06/2019 Reviewed by: Carol Romo Ma - Fully Assessed Reason for Visit: Pain (Shoulder Pain) [1343] Cmt: right x 2-4 weeks, denies i njury Primary Visit Diagnosis:Acute pain of right shoulder [M25.51 1] Order(s):XR SHOULDER GENERAL 3V OR MORE AP/TRUE AP/OTHER RT [[id number]] Order #: [id number] FUTURE methylPREDNISolone (MEDROL, CRISTINO,) 4 mg Dose-PackFollow dosin g instructions, take with food.Disp: 1 PackageRfl: 0 Prescriptions as of 02/06/2019 Sig: CPAP Initiate Auto PAP @ 5-20 cm o* LISINOPRIL 10 MG TABLET Take 1 tablet by mouth once d* BUPROPION HCL 100 MG TABLET Take 1 tablet by mouth twice * CYCLOBENZAPRINE 10 MG TABLET Take 1 tablet by mouth at bed* NAPROXEN SODIUM 220 MG TABLET Take 1 tablet by mouth twice * METHYLPREDNISOLONE 4 MG TABLE* Follow dosing instructions, t * Problem List As Of Date 02/06/2019 Noted Resolved Depressive disorder, not elsewhere classified [*INVALID FOR* 01/19/2017 SPONDYLOLISTHESIS [Q76.2] INVALID FOR* Essential hypertension, benign [I10] INVALID FOR*01/19/2017 History of pleural empyema [Z87.09] INVALID FOR* More... Overweight (BMI 25.0-29.9) [E66.3] INVALID FOR* More... Carpal tunnel syndrome, bilateral [G56.03] INVALID FOR* Facet arthropathy, lumbar (HCC) [M47.816] INVALID FOR* More... Spondylosis of lumbosacral region [M47.817] INVALID FOR* Obstructive sleep apnea [G47.33] INVALID FOR* Prescriptions ordered this encounter Disp Refills Start End METHYLPREDNISOLONE 4 MG TABLETS IN A* 1 Pa* 0 02/06/2019 Sig: Follow dosing instructions, take with food. Encounter Status:Closed by FE HARDING PA-C on 9 48 hr holter monitor on 2017-10-27 48 HR HOLTER IMPRESSIONS AND Normal 10-27-2017 [facility] MONITOR FINDINGS:Scanned ([phone]) [id number] basic underlying rhythm is sinus with an average rate of 90 BPM, a minimum rate of 49 BPM and a maximum rate of 144 BPM. T achycardia was seen in25% of the scan.There were five isolated premature atrial complexes. There was one atrial run which consisted of eight beats at a rate of 90 B PM occurring at 11:35on 27-Oct-2017.There were five isolated premature ventricular complexes.There were no symptoms documented. However, the patient called and stated that he had sweated the electrodes off. He then r emoved the monitor andcame back in and had them replaced. Hookup Date: 20171027 Hookup Time: Recording Duration: [id number] S Minimum Heart Rate: 49 BPM Minimum Heart Rate Date/Time: 20171029 Maximum Heart Rate: 144 BPM Maximum Heart Rate Date/Time: 20171028 Average Heart Rate: 90 BPM Longest RR: 1.664 S Longest RR DATE/TIME: 20171027 [id number] QRS complexes: [id number] Ventricular Ectopics: 5 Ventricular Isolated Beats: 5 Ventricular Bigeminal Cycles: 3 Ventricular Couplets: 0 Ventricular Runs: 0 Ventricular Beats in Runs: 0 Supraventricular Ectopics: 13 Supraventricular Isolated Beats: 5 Supraventricular Couplets: 0 Supraventricular Runs: 1 Supraventricular Beats in Runs: 8 Longest Supraventricular Run Date/Time: [id number] Fastest Supraventricular Run, Date/Time: [id number] Maximum S-T Levels Channel 1: -12.800 mm Maximum S-T Levels Channel 1 Date/Time: 20171027 Minimum S-T Levels Channel 1: -12.800 mm Minimum S-T Levels Channel 1 Date/Time: 20171027 Maximum S-T Levels Channel 2: -12.800 mm Minimum S-T Levels Channel 2: -12.800 mm Minimum S-T Levels Channel 2 Date/Time: 20171027 Overreading Physician: MARI PATHAK M.D. See Holter MUSE for ECG strips. Encounters Date Type Reason Provider Location 10-27-2017 Ambulatory [facility] ([id number]) 02-29-2020 - Patient encounter External Provider [facility] 02-29-2020 procedure 02-29-2020 - Results Only External Provider External-N [facility] 02-29-2020 01-29-2020 - Telephone encounter Roberto Carlos Scherer [facility] 01-29-2020 [place] Comment: lisinopril causing dry cough 01-18-2020 - 01-18-2020 Telephone encounter Roberto Carlos chowdhury [facility] [place] Comment: outside lab order form Procedures Procedure Name Date Provider Location EXTERNAL IMAGING 02-29-2020 External Provider [facility] ([id number]) EXTERNAL LAB 02-29-2020 External Provider [facility] ([id number]) Plan of Treatment Plan Description Date Location DTAP,TDAP,TD (2 - Td) DTAP,TDAP,TD (2 - Td) 11-20-2023 - [facility] 11-20-2023 ([id number]) LIPID SCREEN LIPID SCREEN 01-19-2022 - [facility] 01-19-2022 ([id number]) DIABETES SCREEN DIABETES SCREEN 01-08-2022 - [facility] 01-08-2022 ([id number]) ANNUAL PCP TEAM CHRONIC ANNUAL PCP TEAM CHRONIC 12-12-2020 - [facility] DISEASE VISIT DISEASE VISIT 12-12-2020 ([id number]) BP CONTROLLED (<130/80) BP CONTROLLED (<130/80) 12-12-2020 - [facility] 12-12-2020 ([id number]) INFLUENZA (#1) INFLUENZA (#1) 2020 - [facility] 01-22-2020 ([id number]) HEPATITIS C SCREENING HEPATITIS C SCREENING 1992 - [facility] 1992 (47589) HIV SCREENING HIV SCREENING 1992 - [facility] 1992 (45606) no information [facility] ([id number]) Immunizations Vaccine Notes Status Date Location Pneumovax pneumococcal (completed) 11-19-2013 - [facility] c polysaccharide vaccine, 11-19-2013 (441 95) 23 valent Tetanus/Diphtheria tetanus and diphtheria (completed) 10-22-2003 - [facility] Unspec toxoids, not adsorbed, 10-22-2003 (4419 5) for adult use Tdap (Age 7+) tetanus toxoid, reduced (completed) 11-19-2013 - [facility] diphtheria toxoid, and 11-19-2013 (4419 5) acellular pertussis vaccine, adsorbed Payers Payer Name Policy Number Location MMO [id number] [facility] ([id number] 443) The following information is from the original human readable contentNo Payer Records FoundNo Payer Records FoundNo Payer Records Found Social History Type Social History Date Location Description History of tobacco use Current smoker 06-04-2013 [facility] ([id number]) History SDOH Alcohol Std 1 10-22-2019 - [facility] Drinks 10-22-2019 (46772) History of tobacco use Cigarette Smoker 06-04-2013 [facility] ([id number]) Cigarettes smoked 11-14-2019 - [facility] current (pack per day) - 11-14-2019 (17165) Reported Tobacco use and exposure Never used 11-14-2019 [facility] 11-14-2019 (46700) Alcohol intake Current non-drinker of 11-14-2019 [facility] alcohol (finding) 11-14-2019 (67520) History SDOH Alcohol 98 10-22-2019 [facility] C linic Frequency 10-22-2019 (59221) Tobacco smoking status Former smoker 11-14-2019 - [facility] NHIS 11-14-2019 ([id number]) History SDOH Social 5 10-22-2019 - [facility] Phone 10-22-2019 ([id number]) History SDOH Social 2 10-22-2019 - [facility] Membership 10-22-2019 ([id number]) History SDOH Social 8 10-22-2019 - [facility] Living 10-22-2019 (79573) History SDOH Physical 6 10-22-2019 - [facility] Activity MPS 10-22-2019 ([id number]) History SDOH Stress 3 10-22-2019 - [facility] 10-22-2019 (41246) History SDOH Education 15 10-22-2019 - [facility] 10-22-2019 (51554) Sex Assigned At Male [facility] ([id number]) The following information is from the original human readable contentNo Social History Records FoundNo Social History Records FoundNo Social History Records Found Summary Purpose Family History No Family History Records FoundNo Family History Records Found Advance Directives No Advanced Directives Records FoundNo Advanced Directives Records Found History of Past Illness Problem Noted Date Resolved Date Essential hypertension, benign 11/19/2013 7 Depressive disorder, not elsewhere classified 09/06/2007 01/19/2017 Problem Noted Date Resolved Date Essential hypertension, benign 11/19/2013 7 Depressive disorder, not elsewhere classified 09/06/2007 01/19/2017 Problem Noted Date Resolved Date Essential hypertension, benign 11/19/2013 7 Depressive disorder, not elsewhere classified 09/06/2007 01/19/2017 Additional Source Comments FOR RECORDS PERTAINING TO PATIENTS WHO ARE OR HAVE BEEN ENROLLED IN A CHEMICAL DEPENDENCY/SUBSTANCE ABUSE PROGRAM, SOME INFORMATION MAY BE OMITTED. This clinical summary was aggregated from multiple sources. Caution should be exercised in using it in the provision of clinical care. This summary normalizes information from multiple sources, and as a consequence, information in this document may materially changethe coding, format and clinical context of patient data. In addition, data may be omittedin some cases. CLINICAL DECISIONS SHOULD BE BASED ON THE PRIMARY CLINICAL RECORDS. [facility] provides no warranty or guarantee of the accuracy or completeness of information in this document. UNRECOGNIZED CONTENT PROVIDED BELOW FOR UNRECOGNIZED SECTION No Status Records FoundNo Status Records Found UNRECOGNIZED CONTENT PROVIDED BELOW FOR UNRECOGNIZED SECTION INFORMATION SOURCE DATE CREATED AUTHOR AUTHOR'S ORGANIRMAO N 11/08/2017 [facility] DATE CREATED AUTHOR AUTHOR'S ORGANIZATIO N 01/30/2020 [facility] UNRECOGNIZED CONTENT PROVIDED BELOW FOR UNRECOGNIZED SECTION Source Comments In the event this information is protected by the Federal Confidentiality of Alcohol and Drug Abuse Patient Records regulations: The Federal rules restrict any use of the information to criminally investigate or prosecute any alcohol or drug abuse patient.[facility] the event this information is protected by the Federal Confidentiality of Alcohol and Drug Abuse Patient Records regulations: The Federal rules restrict any use of the information to criminally investigate or prosecute any alcohol or drug abuse patient.[facility] the event this information is protected by the Federal Confidentiality of Alcohol and Drug Abuse Patient Records regulations: The Federal rules restrict any use of the information to criminally investigate or prosecute any alcohol or drug abuse patient.[facility] the event this information is protected by the Federal Confidentiality of Alcohol and Drug Abuse Patient Records regulations: The Federal rules restrict any use of the information to criminally investigate or prosecute any alcohol or drug abuse patient.[facility] UNRECOGNIZED CONTENT PROVIDED BELOW FOR UNRECOGNIZED SECTION Reason for Visit Reason Onset Date Comments outside lab order form 01/18/2020 Reason Onset Date Comments lisinopril causing dry cough 01/29/2020 UNRECOGNIZED CONTENT PROVIDED BELOW FOR UNRECOGNIZED SECTION Miscellaneous Notes Telephone Encounter - Leona Ramirez LPN - 01/23/2020 6:19 PM EDTPhoned patient and notified him that form was completed by and we will place it in medical records to be picked up. 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 Leona Ramirez LPN elephone Encounter - Nadira Lafleur LPN - 01/22/2020 8:24 AM EDTForm received. Telephone Encounter - Nida Millan LPN - 01/21/2020 4:48 PM EDTPt reports notified of results. Pt reports he would like further testing since the first test was positive and the second was negative. Pt updated his phone number. Nida Millan LPN Telephone Encounter - Leona Ramirez LPN - 01/21/2020 3:57 PM EDTPhone number is disconnected or out of service. Letter mailed out and my chart message sent for patient to call office. 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 Patient found out that [facility] cannot run thistest and he will have to take the order to [facility] for completion. Please review and advise. Rika Serrano RN documented in this encounterTelephone Encounter - Liss Rebollar Ma - 01/29/2020 2:31 PM EDT Patient notified. Telephone Encounter - Janay Patricio ([facility]) - 01/29/2020 1:10 PM EDT Can switch to losartan, please make sure to keep scheduled appointment with to recheck BP. The following approved medication requests have been transmitted electronically. Signed Prescriptions Disp Refills losartan (COZAAR) 25 mg tablet 30 tablet 1 Sig: Take 1 tablet by mouth once daily. Authorizing Provider: JANAY PATRICIO ([facility]) Janay Patricio APRN.INFORMATION STRATEGIST elephone Encounter - Christi Mosley LPN - 01/29/2020 10:35 AM EDTPatient calling complaints of dry cough thinks it is from the Lisinopril rx. Patient asking for replacement rx. Patient uses [facility] his pharmacy. Can call patient back before 2 pm, worksat 230 pm today. Please advise documented in this encounter
== END ==
PROVIDERS: PCP Internal Medicine
DX: Z11.3 Encounter for screening for infections with a predominantly sexual mode of transmission (principal); Z11.4 Encounter for screening for human immunodeficiency virus [HIV]; Z11.59 Encounter for screening for other viral diseases; Z20.2 Contact with and (suspected) exposure to infections with a predominantly sexual mode of transmission
CPT/HCPCS: 36415; 86592; 86695; 86696; 86703; 87491; 87591; 87661

== ENCOUNTER 2019-10-27 23:23 | Emergency (ER) | payer OTHER, SELFPAY ==
[2019-10-27 23:24] VITALS: BP 143/100; PULSE 87; RESP 15; TEMP 36.4; O2SAT 96; BMI 30.5
--- NOTE | 2019-10-28 00:02 | ED.VIS.UPPEX ---
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 Timing: Continuous Quality of Pain: Aching Location: left rhomboids area and periscapular Current Severity: Severe Maximum Severity: Severe Worsened by: certain movements of left shoulder/back Relieved by: remaining still, stretching affected area Associated Symptoms: Negative for: Parasthesia, Weakness, Loss of Funtion Narrative: Patient points to the rhomboids area just medial to the left scapula, as well as the trapezius chest above the scapula as sources of pain. No numbness in his left upper extremity, no weakness. Hurts more to take a deep breath but denies dyspnea or chest discomfort. Past Medical History - Allergies and Home Meds Allergies/Adverse Reactions: Allergies aspirin Allergy (Verified 10/27/19 23:27) Rash latex Allergy (Verified 10/27/19 23:27) Rash Primary Care Physician: Erica Negro MD [Primary Care Provider] - Past Medical History: None Surgical History: no surgical history Lives: Spouse/ Significant Other Smoking Status: Former smoker Review of Systems General: Denies: Chills, Fever, Sweats Musculoskeletal: Reports: Back pain. Denies: Neck pain, Swelling, Extremity Pain Skin: Denies: Rash, Wounds Neurological: Denies: Headache, Weakness, Numbness Physical Exam Vital Signs/Narrative: Vital Signs Temp Pulse Resp BP Pulse Ox 10/27/19 23:24 97.6 F L 87 15 143/100 H 96 General: Well nourished, Well developed, - - nad Head: Normocephalic, Atraumatic ENT: No Trauma, Moist Mucous Membranes Neck: Nontender, Full ROM. Negative for: Spinal Tenderness, Paraspinal Tenderness Respiratory: No distress Extremeties: Full range of motion of left shoulder and the rest of his upper extremities without difficulty with the exception of pain in the left rhomboids area with squeezing his shoulder blades together. He can pull his left upper extremity in abduction all the way across his body to the right shoulder, which actually feels good to stretch the affected area on his back. No AC joint, subacromial, anterior shoulder tenderness. No bony scapular tenderness. Also mildly tender at the trapezius above the scapular spine. Very tender in the rhomboids, normal inspection, no spine tenderness. Skin: Normal color, No rash, No Trauma Neurological: Alert, Oriented x3, Cranial nerves II-XII grossly intact, Normal Strength, Normal Sensation Psychological: Normal affect, Normal Mood Diagnostic/Tx/Re-eval - Medical Decision Making Patient reassured that he does likely have muscular strain which is what he expected this to be. He tried a dose of Flexeril 2 days ago but it did not help. He has been taking some ibuprofen without significant effect. Prescribed Ultram, Norflex, given doses of Norflex Toradol and Ultram here. ED Disposition - Plan for ED Patient: Disposition: Home or Assisted Living Diagnosis: Strain of rhomboid muscle, Strain of left trapezius muscle Instructions: ED Strain Muscle Ext Prescriptions: Orphenadrine [Norflex ER] 100 mg PO BID PRN #14 tab PRN Reason: muscle pain/spasm Prescription Printed traMADol [Ultram (G)] 50 mg PO Q6H PRN PRN #15 tab PRN Reason: pain Prescription Printed Referrals: Erica Negro MD [Primary Care Provider] - 10-14 Days if not better
[2019-10-28] MEDS: traMADol 50 MG Tablet PO (00:17)
[2019-10-28] MEDS: Orphenadrine 60 MG/2 ML Ampul IM (00:18)
[2019-10-28] MEDS: Ketorolac 60 MG/2 ML Vial IM (00:21)
[2019-10-28 00:46] VITALS: BP 136/70; PULSE 70; RESP 16; O2SAT 98
--- OUTSIDE RECORDS SUMMARY | 2020-03-09 09:14 | XMS RPT_ITS | CCD ---
:1975 External Reference #:[id number] Author Organization [facility] Care Team Providers Name Role Phone GANTA Unavailable Unavailable Allergies Reported Allergen Reaction(s) Severity Date of Onset Location Bee Translations: [ BEES] Swelling 04-09-2005 - [facility] Other [place] Rep[facility] Latex Translations: [ Other: See Comments 10-26-2012 [facility] LATEX] Other [place] [facility] salicylic acid Rash 04-09-2005 [facility] Cli henrik Translations: [ Other [place] SALICYLATES] Repository sulfamethoxazole / Other: See Comments 10-26-2012 [facility] trimethoprim Other [place] Translations: [ Repository SULFAMETHOXAZOLE-TRIMETHO PRIM] Medications Medication Name Sig Date Prescriber Location buPROPion buPROPion 07-03-2018 Janay ([facility]) [facility] (WELLBUTRIN) 100 mg (42519) tablet Indications: Depression, unspecified depression type Take 1 tablet by mouth twice daily. 60 tablet 5 07/03/2018 Active Comment: Take 1 tablet by mouth twice daily. CPAP CPAP Indications: Obstructive 01-09-2019 [facility] (99813) sleep apnea syndrome Initiate Auto PAP @ 5-20 cm of water with humidification. Mask (per patient preference) optional chin strap (if indicated) , filters, tubing, humidifier and lifetime supplies. 1 Device 0 01/09/2019 Active CPAP Indications: Obstructive sleep 01-09-2019 [facility] (96400) apnea syndrome Initiate Auto PAP @ 5-20 cm of water with humidification. Mask (per patient preference) optional chin strap (if indicated) , filters, tubing, humidifier and lifetime supplies. 1 Device 0 01/09/2019 Active CPAP Indications: Obstructive sleep 01-09-2019 [facility] (05432) apnea syndrome Initiate Auto PAP @ 5-20 cm of water with humidification. Mask (per patient preference) optional chin strap (if indicated) , filters, tubing, humidifier and lifetime supplies. 1 Device 0 01/09/2019 Active CPAP Indications: Obstructive sleep 01-09-2019 [facility] (87521) apnea syndrome Initiate Auto PAP @ 5-20 [...] and lifetime supplies. cyclobenzaprine cyclobenzaprine (FLEXERIL) 04-26-2017 [facility] 10 mg tablet Take 1 tablet ( 37408) by mouth at bedtime as needed. 45 tablet 2 04/26/2017 Active Comment: Take 1 tablet by mouth at be dtime as needed. Lisinopril lisinopril (ZESTRIL, 11-22-2019 - [facility] PRINIVIL) 10 mg tablet 01-29-2020 (4419 5) Take 1 tablet by mouth once daily. 30 tablet 1 11/22/2019 01/29/2020 Discontinued Comment: Take 1 tablet by mouth once daily. Losartan losartan (COZAAR) 25 mg 01-29-2020 Janay ([facility]) Abisai staton [facility] tablet Take 1 tablet by (441 95) mouth once daily. 30 tablet 1 01/29/2020 Active Comment: Take 1 tablet by mouth once daily. Naproxen naproxen sodium (ALEVE) 02-18-2016 Margaret ([facility]) Older C [facility] (06481) 220 mg tablet Take 1 tablet by mouth twice daily with meals. TAKE WITH FOOD 0 02/18/2016 Active Comment: Take 1 tablet by mouth twice daily with meals. TAKE WITH FOOD Nystatin nystatin (MYCOSTATIN) powder 12-13-2019 [facility] Indications: Intertriginous (41808) candidiasis Apply 1 application to affected area four times daily. 2 Bottle 1 12/13/2019 Active Comment: Apply 1 application to affec jania area four times daily. 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 (60094) Other nervous system Bilateral carpal tunnel Active - [facility] disorders syndrome (82605) Other nutritional; Body mass index 25-29 - Active 01-19-2017 - [facility] endocrine; and overweight (16944) metabolic disorders Residual codes; Obstructive sleep apnea Active 12-19-2018 - [facility] unclassified syndrome (17497) Rheumatoid arthritis Arthropathy of lumbar Active 04-26-2017 - [facility] and related disease facet joint (08650) Spondylosis; Lumbosacral spondylosis Active 04-26-2017 - [facility] intervertebral disc (18500) disorders; other back problems Past or Other Problems Category Problem Name Status Date Location Other lower H/O: respiratory Completed 01-19-2017 - [facility] linic respiratory disease disease (10060) Results Result Name Value Range Unit Interpretation Flag Date Location banner on 2020-01-29 [facility] Telephone (INTMWS) Normal 01-29-2020 [facility] DEANNE MCGOVERN ([id number]) 1975 M [place] Date Time Provider Department ([id number]) 01/29/20 ROBERTO CARLOS SCHERER INTMWS During your visit today, we recorded the following informati on about you: Christi Mosley LPN 01/29/2020 10:38 AM Signed Patient calling complaints of dry cough thinks it is f rom the Lisinopril rx. Patient asking for replacement rx. Patient uses [facility] for his pharmacy. Can call patient back before 2 pm, works at 230 pm today. Please advise Janay Patricio APRN.LEASE ANALYST 01/29/2020 1:11 PM Signed Can switch to losartan, please make sure to keep scheduled appointment with to recheck BP. The following approved medic ation requests have been transmitted electronically. Signed Prescriptions Disp Refills losartan (COZAAR) 25 mg tablet 30 tablet 1 Sig: Take 1 tablet by mouth once daily. Authorizing Provider: JANAY PATRICIO (LEASE ANALYST) Janay Patricio APRN.ROSAURA Lissshemar Rebollar Ma 01/29/2020 2:31 PM Signed Patient notified. Allergies As of Date: 01/29/2020 Noted Allergy Reaction ASA (SALICYLATES) 04/09/2005 2 - Rash BACTRIM (SULFAMETHOXAZOLE-TRIMETH*10/26/2012 14 - Other: See Comments Comments: Photodermatitis BEES 04/09/2005 7 - Swelling LATEX 10/26/2012 14 - Other: See Comments Comments: Dermatology tested. Date Reviewed: 11/14/2019 Reviewed by: Lady Rogel (Per Diem Rn Oceanographer Assistant) Dylan - Fully Assessed Reason for Visit: [...] by mouth once daily. Encounter Status:Closed by LISS REBOLLAR MA on 01/29/20 cnpn on 2020-01-18 CNPN Telephone (INTMWS) Normal 01-18-2020 [facility] DEANNE MCGOVERN ([id number]) 1975 [facility] Date Time Provider Department ([id number]) 01/18/20 ROBERTO CARLOS SCHERER INTMWS During your visit today, we recorded the following informati on about you: Rika Serrano RN 01/18/2020 10:25 AM Signed Patient is dropping off an outside lab order for Western b lot test that PCP will need to complete and ca ll patient when ready to rock picker. Patient found out that [facility] cannot run this test and he will have to take the order to [facility] for completion. Please review and advise. KRUNAL [...] picked up. 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 Leona Ramirez LPN Allergies As of Date: 01/18/2020 Noted Allergy Reaction ASA (SALICYLATES) 04/09/2005 2 - Rash BACTRIM (SULFAMETHOXAZOLE-TRIMETH*10/26/2012 14 - Other: See Comments Comments: Photodermatitis BEES 04/09/2005 7 - Swelling LATEX 10/26/2012 14 - Other: See Comments Comments: Dermatology tested. Date Reviewed: 11/14/2019 Reviewed by: Lady Rogel (Per Diem Rn [facility]) Dylan - Fully Assessed Reason for [...] on 2019-12-14 CNPN Telephone (INTMWS) Normal 12-14-2019 [place] DEANNE Fischer ([id number]) 1975 [facility] Date Time Provider Department ([id number]) 12/14/19 ROBERTO CARLOS SCHERER INTMWS During your visit today, we recorded the following informati on about you: Kimberley Tubbs RN 12/14/2019 1:19 PM Signed Patient reports he contacted the [facility] . Reports they are the only one who does the Western Blot blood test for herp es, and it is the most accurate. They are sending him the kit. Reports they n eed an order from pcp. Instructions will come with kit. Once th ey read the instructions will call pcp to either rock picker Rx or have pcp send to [facility]. Allergies As of Date: 12/14/2019 Noted Allergy Reaction ASA (SALICYLATES) 04/09/2005 2 - Rash BACTRIM (SULFAMETHOXAZOLE-TRIMETH*10/26/2012 14 - Other: See Comments Comments: Photodermatitis BEES 04/09/2005 7 - Swelling LATEX 10/26/2012 14 - Other: See Comments Comments: Dermatology tested. Date Reviewed: 11/14/2019 Reviewed by: Lady Rogel (Sofiya Oceanographer Assistant) Dylan - Fully Assessed Reason for Visit: [...] 12/21/19 progress on 2019-11 PROGRESS HNO ID: [id number] Normal 12-13-2019 [facility] Author: Roberto Carlos Scherer Quinonez ([id number]) Service: ? Author Type: Physician Type: Progress [...] Herpes Simplex IgG 1 >8.0 Normal 0 [facility] (66677) Comment: Result Comment: INDEX VALUES ARE INTERPRETED FOLLOWS: NEGATIVE SPECIMENS <0.9 EQUIVOCAL SPECIMENS 0.9 TO 1 .0 POSITIVE SPECIMENS >=1.1 Performed By: #### HSVG12 ## ##[address] [phone]- [phone] Herpes Simplex IgG 2 <0.2 Normal 0 [facility] (02587) Comment: Result Comment: INDEX VALUES ARE INTERPRETED FOLLOWS: NEGATIVE SPECIMENS <0.9 EQUIVOCAL SPECIMENS 0.9 TO 1 .0 POSITIVE SPECIMENS >=1.1 Performed By: #### HSVG12 ## ##[address] [phone] HSV IgG 1 Positive Negative Critically 12-13-2019 [facility] Qualitative abnormal [facility] (69919) Comment: Result Comment: IgG antibody to HSV-1 detected Performed By: #### HSVG12 ## ##[address] [phone]- [phone] HSV IgG 2 Qualitative Negative Negative Normal 12-13-19 20 [facility] (25225) Comment: Result Comment: No HSV-2 IgG antibodies detected. Patient is presumed not to h ave had a previous HSV-2 infection. Performed By: #### HSVG12 ## ##[address] [phone]- [phone] herpes simplex igm on 2019-12-13 Herpes Simplex IgM 1.10 0-0.90 OD Ratio High 12-13-2019 [facility] (17321) Comment: Result Comment: INDEX VALUES /OD RATIOS ARE INTERPRETED FOLLOWS: NEGATIVE SPECIMENS <=0.90 EQUIVOCAL SPECIMENS 0.91 TO 1.09 POSITIVE SPECIMENS >=1.10 Performed By: #### HSVM #### [facility] [place], [place] [phone] HSV IgM Qualitative Positive Negative Critically 0 [facility] abnormal [place] (51815) Comment: Result Comment: IgM antibodi es specific to HSV-1 or HSV-2 were detected. It is n ot possible to distinguish between HSV-1 and HSV-2 with this test system. Posit chyna values indicate a primary or reacti vated infection with HSV-1 or HSV- 2. Performed By: #### HSVM #### [facility] [place], [place] [phone]- [phone] cnpn on 2019-12-13 CNPN Telephone (INTMWS) Normal 12-13-2019 [facility] DEANNE MCGOVERN ([id number]) 1975 [facility] Date Time Provider Department () 12/13/19 ROBERTO [...] is: HSV 1,2 Antibodies, IgG and IgM Specleonic HSVGM CPT Codes 86021 03920 99624 Includes HSV IgG Type 1 Antibody HSV [...] Date Reviewed: 11/14/2019 Reviewed by: Lady Rogel (Per Diem Rn Oceanographer Assistant) Dylan - Fully Assessed Reason for Visit: [...] CNOV Office Visit (INTMWS) Normal 12-13-19 20 [facility] DEANNE MCGOVERN ([id number]) 1975 [facility] Date Time Provider Department (20356) 12/13/19 9:00 AM ROBERTO CARLOS SCHERER INTMWS [...] Date Reviewed: 11/14/2019 Reviewed by: Lady Rogel (Per Diem Rn Oceanographer Assistant) Dylan - Fully Assessed Reason for Visit: Established Patient [175] Primary Visit Diagnosis:Herpes genitalis in men [A60.02] Other Visit Diagnoses:Skin infection [L08.9] Intertriginous candidiasis [B37.2] Order(s):HSV 1 AND 2 IGM ABS, INDIRECT [[id number]] Order #: [id number] FUTURE HSV-2 TYPE SPEC AB, IGG W/RFLX [2947191] Order #: [id number] FUTURE HSV 1 AND 2 IGM ABS, INDIRECT [7355876] Order #: [id number] HSV-2 TYPE SPEC AB, IGG W/RFLX [2865683] Order #: [id number] acyclovir (ZOVIRAX) 400 mg tabletTake 1 tablet by mouth thre e times daily for 7 days.Disp: 21 tabletRfl: 1 nystatin (MYCOSTATIN) powderApply 1 application to affected area four times daily.Disp: 2 BottleRfl: 1 doxycycline (VIBRA-TABS) 100 mg tabletTake 1 tablet by mouth twice daily for 10 days.Disp: 20 tabletRfl: 0 HSV-2 TYPE SPEC AB, IGG W/RFLX [1537277] Order #: [id number] FUTURE HSV 1 AND 2 IGM ABS, INDIRECT [5314290] Order #: [id number] FUTURE HSV-2 TYPE SPEC AB, IGG W/RFLX [7678337] Order #: [id number] HSV 1 AND 2 IGM ABS, INDIRECT [3322518] Order #: [id number] HSV-2 TYPE SPEC AB, IGG W/RFLX [5203115] Order #: [id number] FUTURE HSV-2 TYPE SPEC AB, IGG W/RFLX [8870208] Order #: [id number] HERPES SIMPLEX IGM AB [SQHS] Order #: [id number] FUTURE Prescriptions as of 12/13/2019 Sig: ACYCLOVIR [...] (INTMWS) Normal 11-22-2019 [place] DEANNE Fischer ([id number]) 1975 [facility] Date Time Provider Department (21361) 11/22/19 JANAY PATRICIO ([facility]) INTMWS During your visit today, we [...] 11/22/19 progress on 2019-10 PROGRESS HNO ID: [id number] Normal 11-14-2019 [place] Author: Lady Rogel (Sofiya Ashlyn Richardson [facility]: ? [place] Author Type: Nurse Practitioner ([id number]) Type: Progress Notes Filed: 11/14/2019 4:03 PM Note Text: Subjective HPI Deanne Kurt Mcgovern is a 43 year old male who presents with right ear pressure, decreased hearing, and bloody drainage for that started last night. Denies pain. No URI symptoms, fever, or chills. No recent swimming, itching of the ear, or trauma. Works for [employer]- not around any loud [employer]. No history of ear issues similar to [...] twice daily with meals. TAKE WITH FOOD copluvdk-jvduzzqdt-lsvryyxfjpmzrz (CORTISPORIN) 3.5-10,000-1 mg/mL-unit/mL-% otic suspension Use 3 [...] - keep ear clean and dry - KZNZFOBU-IPIAXNNKQ-GAPNPJNKC 3.5 MG-10,000 UNIT/ML-1 % EAR DROPS,SUSP All of the above discussed with the patient in detail. Misty fernandez is in agreement with the above plan. Treatment and plan of care di scussed including course of treatment, possible medication side effe cts, and what to watch for in regards to worsening signs and symptoms. All questions addressed. Lady Richardson APRN.LEASE ANALYST cnov on 2019-11-14 CNOV Office Visit ([facility]) Normal 11-14-19 [facility] DEANNE MCGOVERN ([id number]) 1975 M [place] Date Time Provider Department ([id number]) 11/14/19 3:00 PM LADY RICHARDSON ([employer], LEASE ANALYST)UCWSTR During your visit today, we recorded the following informati on about you: Temperature Pulse Respiration Blood pressure 98.2 degrees 76/minute 16/minute 132/88 Weight 103.2 kg Lady Richardson APRN.LEASE ANALYST 11/14/2019 4:03 PM Signed Subjective HPI Deannecaro Mcgovern is a 43 year old male who presents with right ear pressure, decreased hearing, and bloody drainage for that started last night. Denies pain. No URI symptoms, fever, or chills. No recent swimmin g, itching of the ear, or trauma. Works for [employer]- not around any loud [employer]. No history of ear issues similar to [...] twice daily with meals. TAKE WITH FOOD fqjnqqra-ertvcewvo-enasaprqwpdskl (CORTISPORIN) 3.5-10 ,000-1 mg/mL-unit/mL-% otic suspension Use [...] - keep ear clean and dry - XGYSJHVR-DNNHCSTRU-EBCWCWVCC 3.5 MG-10,000 UNIT/ML-1 % EAR DROPS,SUSP All of the above discussed with the zuleyka ent in detail. Patient is in agreement with the above plan. Treatment and plan of care discussed including course of treatment, possible medication side effects, and what to watch for in regards to worsening signs and symptoms. All questions addressed. Lady Richardson, SOFIYA.LEASE ANALYST Referring Provider: SELF [200] Allergies As of Date: 11/14/2019 Noted Allergy Reaction ASA (SALICYLATES) 04/09/2005 2 - Rash BACTRIM (SULFAMETHOXAZOLE-TRIMETH*10/26/2012 14 - Other: See Comments Comments: Photodermatitis BEES 04/09/2005 7 - Swelling LATEX 10/26/2012 14 - Other: See Comments Comments: Dermatology tested. Date Reviewed: 11/14/2019 Reviewed by: Lady Rogel (Per Diem Rn Oceanographer Assistant) Dylan - Fully Assessed Reason for Visit: Ear Problem [38] Cmt: RIGHT ear pressure with blood x 1 day Primary Visit Diagnosis:Acute otitis externa of right ear, unspecified type [H60.501] Order(s):lnuvtfcs-zrnowobyb-dlssuchtaiywgq (CORTISPORIN) 3.5 -10,000-1 mg/mL-unit/mL-% otic suspensionUse 3 [...] Take 1 tablet by mouth twice * BMPGCVBP-JAVUPJXFI-DADJJLGUU * Use 3 Drops in the right ear * Problem List As Of Date 11/14/2019 Noted Resolved Depressive disorder, not elsewhere classified [*09/06/2007 0 01/19/2017 SPONDYLOLISTHESIS [Q76.2] 09/06/2007 Essential hypertension, benign [I10] 11/19/2013 01/19/2017 History of pleural empyema [Z87.09] 01/19/2017 More... Overweight (BMI 25.0-29.9) [MDH9265] 01/19/2017 More... Carpal tunnel syndrome, bilateral [G56.03] 01/19/2017 Facet arthropathy, lumbar (HCC) [M47.816] 04/26/2017 More... Spondylosis of lumbosacral region [M47.817] 04/26/2017 Obstructive sleep apnea [G47.33] 12/19/2018 Prescriptions ordered this encounter Disp Refills Start End LHLCBGAH-SOPUDACMX-KLJOZBONC 3.5 MG-* 1 Vj* 0 11/14/201905/2019 Route: RIGHT EAR Sig: Use 3 Drops in the right ear four times daily for 7 day s. Encounter Status:Closed by DYLAN ARRIAZA.LADY ZAVALA on 11/13 progress on 2019-10 PROGRESS HNO ID: [id number] Normal 10-24-2019 [facility] Author: George (Rosaura) [facility] ([id number]) Service: ? Author Type: Nurse Practitioner Type: [...] care. This no te was generated using 28msec software. It may contain errors in wo rding, punctuation, or spelling. George Choi APRN.LEASE ANALYST cnov on 2019-10-24 CNOV Office Visit ([facility]) Normal 10-24-19 20 [place] [facility] DEANNE MCGOVERN ([id number]) 1975 [facility] Date Time Provider Department ([id number]) 10/24/19 8:45 AM GEORGE CHOI (ROSAURA) [facility] [...] care . This note was generated using 28msec software. It may contain errors in wording, punctuation, or spelling. eGorge Choi APRN.[facility] Referring Provider: SELF [200] Allergies As of Date: 10/24/2019 Noted Allergy Reaction ASA (SALICYLATES) 04/09/2005 2 - Rash BACTRIM (SULFAMETHOXAZOLE-TRIMETH*10/26/2012 14 - Other: See Comments Comments: Photodermatitis BEES 04/09/2005 7 - Swelling LATEX 10/26/2012 14 - Other: See Comments Comments: Dermatology tested. Date Reviewed: 10/24/2019 Reviewed by: George (Oceanographer Assistant) Jimbo - Fully Assessed Reason for Visit: [...] empyema [Z87.09] 01/19/2017 More... Overweight (BMI 25.0-29.9) [EXR5566] 01/19/2017 More... Carpal tunnel syndrome, bilateral [G56.03] 01/19/2017 Facet arthropathy, lumbar (HCC) [M47.816] 04/26/2017 More... Spondylosis of lumbosacral region [M47.817] 04/26/2017 Obstructive sleep apnea [G47.33] 12/19/2018 Encounter Status:Closed by JIMBO ARRIAZA.GEORGE ZAVALA on obsolete on 2019-08 OBSOLETE Refill (INTMWS) Normal 09-10-2019 [facility] DEANNE Fischer ([id number]) 1975 [facility] Date Time Provider Department ([id number]) 09/10/19 MARGARET RAGSDALE (ROSAURA) INTMWS During your [...] daily. JAIDEN: No Authorizing Provider: JANAY PATRICIO (LEASE ANALYST) Janay Patricio APRN.CNP Allergies As of Date: [...] empyema [Z87.09] 01/19/2017 More... Overweight (BMI 25.0-29.9) [ULH7311] 01/19/2017 More... Carpal tunnel syndrome, bilateral [G56.03] [...] 09/11/19 progress on 2019-06 PROGRESS HNO ID: [id number] Normal 07-17-2019 [facility] Author: Kimberley Dehspande (Pa-C) Steven Quinonez ([id number]) Service: ? Author Type: Physician Flight Instructor Type: Progress Notes Filed: 07/17/2019 9:01 PM [...] 2019-07-17 CNOV Office Visit ([facility]) Normal 07-17-[address] [place] [address] DEANNE Fischer ([id number]) 1975 [facility] Date Time Provider Department ([id number]) 07/17/19 7:45 PM Kimberley HARRIS) WSTR During [...] off Strep. and get better too, but malissa use risk of developing rheumatic fever, we [...] Diagnosis:Sore throat [J02.9] Order(s):RAPID STREP TEST B/O [[id number]] Order #: [id number] Prescriptions as of 07/17/2019 Sig: CPAP Initiate [...] 07/17/19 progress on 2019-03 PROGRESS HNO ID: [id number] Normal 04-11-2019 [place] Author: Kassidy Nice [facility]: ? [place] Author Type: Physician ([id number]) Type: Progress Notes Filed: 04/11/2019 9:38 AM Note Text: [facility] New Patient Evaluation Deanne Mcgovern was evaluated at the [place] location Time out: 9:36 Time in: 9:13 For this visit, a total jnhj-wn-loir time with the patient c omprised 23 minutes, with at least 50% of that time devoted to face-to-f martha counseling and coordination of care, with especial emphasis placed on a nswering the patient?s and/or family?s questions in a form that they can understand and appreciate. PATIENT NAME: Deanne Mcgovern DATE OF SERVICE: April 03, 2019 Insurance: MMO Home Location: [place] CONSULTING PROVIDER: ROBERTO CARLOS SCHERER MD [address] [place] [address] REASON FOR CONSULT: Roberto Carlos Scherer sends [...] between 2 and 4 after working second [employer]. Activities before going to bed: Winding down. 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 He is a shift [...] Overweight, Congenital spondylolisthesis, HTN. Case Formulation / [place] (may include pt's hopes, fears, ex pectations, concerns): Compliant and benefitting. Download shows AHI of 2.7, with pressures 5-8 used, using th e machine 80% of nights, with minimal leaks. Actions taken: Motivational Interviewing aspects taken Review, Establishing care Follow up yearly with Nisha or Margaret Nice MD Beeper: [id number] cnov on 2019-04-11 CNOV Office Visit ([facility]) Normal 04-11-[address] [place] [address] DEANNE Fischer ([id number]) 1975 M [place] Date Time Provider Department ([id number]) 04/11/19 9:00 AM KASSIDY NICE During your visit today, we recorded the following informati on about you: Pulse Respiration Blood pressure Weight 76/minute 16/minute 136/80 98.4 kg Kassidy Nice MD 04/11/2019 9:38 AM Signed [facility] New Patient Evaluation Deanne Mcgovern was evaluated at the [place] location Time out: 9:36 Time in: 9:13 For this visit, a total rmgj-oy-apll time with the patient c omprised 23 minutes, with at least 50% of that time devoted to ftiy-hf-qdwu counseling and coordination of care, with especial emph asis placed on answering the patient?s and/or family?s questions in a form that they can unde rstand and appreciate. 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 Case Formulation / [place] (may include pt's hopes, fears, ex pectations, concerns): Compliant and benefitting. Download shows AHI of 2.7, with pressures 5-8 used, us ing the machine 80% of nights, with minimal leaks. Actions taken: Motivational Interviewing aspects taken Review, Establishing care Follow up yearly with Nisha or Margaret Nice MD Beeper: [id number] Referring Provider: ROBERTO CARLOS SCHERER [[id number]] Allergies As of Date: 04/11/2019 Noted Allergy [...] 04/11/19 progress on 2019-02 PROGRESS HNO ID: [id number] Normal 03-08-2019 [facility] Author: Roberto Carlos Scherer [place] ([id number]) Service: ? Author Type: Physician Type: Progress [...] 2019-03-08 CNOV Office Visit (INTMWS) Normal 03-08-[address] [place] [address] Clinic DEANNE MCGOVERN ([id number]) 1975 [place] Date Time Provider Department (99726) 03/08/19 9:40 AM ROBERTO CARLOS SCHERER INTMWS [...] 03/08/19 progress on 2019-02 PROGRESS HNO ID: [id number] Normal 02-24-2019 [place] Author: Ale Gonzalez) [facility] Service: ? 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 Patient advised if symptoms do not improve or if symptoms worsen vandana ner, to contact their primary care physician. Potential red flag sym ptoms discussed with the patient. Reviewed appropriate action plan to take if red flag symptoms occur. Patient agreeable to treatment plan . 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 There is normal architecture and mineralization of the bones. There is no acute fracture or dislocation. Joint spaces are maintained. Impression: 1. No acute fracture or dislocation. Data Warehouse Specialist: JUDITH Transcribe Date/Time: Feb 06 2019 10:13A Dictated by : NOELLE WALTER MD This examination was interpreted and the report reviewed and electronically signed by: NOELLE WALTER MD on Feb 06 2019 10:14AM EST [id number] progress on 2019-01 PROGRESS HNO ID: [id number] Normal 02-06-2019 [facility] Author: Jeanne Meyer (Rt) Angle Armenta ([id number]) Service: ? Author Type: Outpatient Services Director Type: Progress Notes Filed: 02/06/2019 10:05 AM [...] 06, 2019 9:57 AM PROGRESS HNO ID: [id number] Normal 02-06-2019 [facility] Author: Fe Vaughan) Mehdi [place] ([id number]) Service: ? 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 Employer: [employer] Social Needs Financial resource strain: [...] file Gets together: Not on file Attends yazidism service: Not on file Active member of [...] PA-C cnov on 2019-02-06 CNOV Office Visit ([facility]) Normal 02-07-20 19 [facility] HONDURANDEANNE SYLVESTER ([id number]) 1975 M [place] Date Time Provider Department ([id number]) 02/06/19 9:45 AM FE HARDING) [facility] During [...] Not on file Occupational History 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 Employer: [employer] Financial resource strain: Not on file Food [...] file Gets together: Not on file Attends yazidism service: Not on file Active member of [...] GENERAL 3V OR MORE AP/TRUE AP/OTHER RT [[id number]] Order #: [id number] FUTURE methylPREDNISolone (MEDROL, CRISTINO,) 4 mg Dose-PackFollow [...] 48 HR HOLTER IMPRESSIONS AND Normal 10-27-2017 [facility] MONITOR FINDINGS:Scanned (00 000) [id number] basic underlying rhythm is sinus with an [...] Hookup Date: 20171027 Hookup Time: Recording Duration: 500412 S Minimum Heart Rate: 49 BPM Minimum Heart Rate Date/Time: 20171029 Maximum Heart Rate: 144 BPM Maximum Heart Rate Date/Time: 20171028 Average Heart Rate: 90 BPM Longest RR: 1.664 S Longest RR DATE/TIME: 20171027 863139 QRS complexes: 564250 Ventricular Ectopics: 5 Ventricular Isolated Beats: 5 [...] Date Type Reason Provider Location 10-27-2017 Ambulatory [facility] ([id number]) 02-29-2020 - Patient encounter External Provider [facility] 02-29-2020 procedure 02-29-2020 - Results Only External Provider External-N [facility] 02-29-2020 01-29-2020 - Telephone encounter [facility] 01-29-2020 [place] Comment: lisinopril causing dry cough 01-18-2020 - 01-18-2020 Telephone encounter Roberto Carlos chowdhury [facility] [place] Comment: outside lab order form Procedures Procedure Name Date Provider Location EXTERNAL IMAGING 02-29-2020 External Provider [facility] ([id number]) EXTERNAL LAB 02-29-2020 External Provider [facility] ([id number]) Plan of Treatment Plan Description Date Location DTAP,TDAP,TD (2 - Td) DTAP,TDAP,TD (2 - Td) 11-20-2023 - [facility] 11-20-2023 ([id number]) LIPID SCREEN LIPID SCREEN 01-19-2022 - [facility] 01-19-2022 ([id number]) DIABETES SCREEN DIABETES SCREEN 01-08-2022 - [facility] 01-08-2022 ([id number]) ANNUAL PCP TEAM CHRONIC ANNUAL PCP TEAM CHRONIC 12-12-2020 - [facility] DISEASE VISIT DISEASE VISIT 12-12-2020 ([id number]) BP CONTROLLED (<130/80) BP CONTROLLED (<130/80) 12-12-2020 - [facility] 12-12-2020 ([id number]) INFLUENZA (#1) INFLUENZA (#1) 2020 - [facility] 01-22-2020 ([id number]) HEPATITIS C SCREENING HEPATITIS C SCREENING 1992 - [facility] 1992 ([id number]) HIV SCREENING HIV SCREENING 1992 - [facility] 1992 (50626) no information [facility] ([id number]) Immunizations Vaccine Notes Status Date Location Pneumovax pneumococcal (completed) 11-19-2013 - [facility] c polysaccharide vaccine, 11-19-2013 (441 95) 23 valent Tetanus/Diphtheria tetanus and diphtheria (completed) 10-22-2003 - [facility] Unspec toxoids, not adsorbed, 10-22-2003 (4419 5) for adult use Tdap (Age 7+) tetanus toxoid, reduced (completed) 11-19-2013 - [facility] diphtheria toxoid, and 11-19-2013 (4419 5) acellular pertussis vaccine, adsorbed Payers Payer Name Policy Number Location MMO [id number] [facility] ([id number] 144) The following information is from the original human readable contentNo Payer Records FoundNo Payer Records FoundNo Payer Records Found Social History Type Social History Date Location Description History of tobacco use Current smoker 06-04-2013 [facility] ([id number]) History SDOH Alcohol Std 1 10-22-2019 - [facility] Drinks 10-22-2019 (60847) History of tobacco use Cigarette Smoker 06-04-2013 [facility] ([id number]) Cigarettes smoked 11-14-2019 - [facility] current (pack per day) - 11-14-2019 (21907) Reported Tobacco use and exposure Never used 11-14-2019 [facility] 11-14-2019 (98696) Alcohol intake Current non-drinker of 11-14-2019 [facility] alcohol (finding) 11-14-2019 (02935) History SDOH Alcohol 98 10-22-2019 [facility] C linic Frequency 10-22-2019 (89466) Tobacco smoking status Former smoker 11-14-2019 - [facility] NHIS 11-14-2019 (86566) History SDOH Social 5 10-22-[address] [facility] Phone 10-22-2019 ([id number]) History SDOH Social 2 10-22-2019 - [facility] Membership 10-22-2019 ([id number]) History SDOH Social 8 10-22-2019 - [facility] Living 10-22-2019 ([id number]) History SDOH Physical 6 10-22-2019 - [facility] Activity MPS 10-22-2019 ([id number]) History SDOH Stress 3 10-22-2019 - [facility] 10-22-2019 ([id number]) History SDOH Education 15 10-22-2019 - [facility] 10-22-2019 ([id number]) Sex Assigned At Male [facility] ([id number]) The following information is from the original [...] BE BASED ON THE PRIMARY CLINICAL RECORDS. [facility] provides no warranty or guarantee of the accuracy or completeness of information in this document. UNRECOGNIZED CONTENT PROVIDED BELOW FOR UNRECOGNIZED SECTION No Status Records FoundNo Status Records Found UNRECOGNIZED CONTENT PROVIDED BELOW FOR UNRECOGNIZED SECTION INFORMATION SOURCE DATE CREATED AUTHOR AUTHOR'S ORGANIRMAO N 11/08/2017 [facility] DATE CREATED AUTHOR AUTHOR'S ORGANIZATIO N 01/30/2020 [facility] UNRECOGNIZED CONTENT PROVIDED BELOW FOR UNRECOGNIZED SECTION Source Comments In the event this information is protected by the Federal Confidentiality of Alcohol and Drug Abuse Patient Records regulations: The Federal rules restrict any use of the information to criminally investigate or prosecute any alcohol or drug abuse patient.[facility] the event this information is protected by the Federal Confidentiality of Alcohol and Drug Abuse Patient Records regulations: The Federal rules restrict any use of the information to criminally investigate or prosecute any alcohol or drug abuse patient.[facility] the event this information is protected by the Federal Confidentiality of Alcohol and Drug Abuse Patient Records regulations: The Federal rules restrict any use of the information to criminally investigate or prosecute any alcohol or drug abuse patient.[facility] the event this information is protected by the Federal Confidentiality of Alcohol and Drug Abuse Patient Records regulations: The Federal rules restrict any use of the information to criminally investigate or prosecute any alcohol or drug abuse patient.[facility] UNRECOGNIZED CONTENT PROVIDED BELOW FOR UNRECOGNIZED [...] picked up. 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 Leona Ramirez LPN elephone [...] complete and call patient when ready to rock picker. Patient found out that [facility] cannot run thistest and he will have to take the order to [facility] for completion. Please review and advise. Rika Serrano RN documented in this encounterTelephone Encounter - Liss Rebollar Ma - 01/29/2020 2:31 PM EDT Patient notified. Telephone Encounter - Janay Patricio ([facility]) - 01/29/2020 1:10 PM EDT Can switch to losartan, please make sure to keep scheduled appointment with to recheck BP. The following approved medication requests have been transmitted electronically. Signed Prescriptions Disp Refills losartan (COZAAR) 25 mg tablet 30 tablet 1 Sig: Take 1 tablet by mouth once daily. Authorizing Provider: JANAY PATRICIO ([place]) Janay Patricio APRN.LEASE ANALYST elephone Encounter - Christi Mosley LPN - 01/29/2020 10:35 AM EDTPatient calling complaints of dry cough thinks it is from the Lisinopril rx. Patient asking for replacement rx. Patient uses [facility] for his pharmacy. Can call patient back before 2 pm, worksat 230 pm today. Please advise documented in this encounter
--- OUTSIDE RECORDS SUMMARY | 2020-03-09 09:19 | XMS RPT_ITS | CCD ---
:1975 External Reference #:[id number] Author Organization [facility] Care Team Providers Name Role Phone GANTA Unavailable Unavailable Allergies Reported Allergen Reaction(s) Severity Date of Onset Location Bee Translations: [ BEES] Swelling 04-09-2005 - [facility] Other [place] Repository Latex Translations: [ Other: See Comments 10-26-2012 [facility] LATEX] Other [place] Repository salicylic acid Rash 04-09-2005 [facility] Cli henrik Translations: [ Other [place] SALICYLATES] Repository sulfamethoxazole / Other: See Comments 10-26-2012 [facility] trimethoprim Other [place] Translations: [ Repository SULFAMETHOXAZOLE-TRIMETHO PRIM] Medications Medication Name Sig Date Prescriber Location buPROPion buPROPion 07-03-2018 Janay ([facility]) [facility] (WELLBUTRIN) 100 mg (21810) tablet Indications: Depression, unspecified depression type Take 1 tablet by mouth twice daily. 60 tablet 5 07/03/2018 Active Comment: Take 1 tablet by mouth twice daily. CPAP CPAP Indications: Obstructive 01-09-2019 [facility] (43045) sleep apnea syndrome Initiate Auto PAP @ 5-20 cm of water with humidification. Mask (per patient preference) optional chin strap (if indicated) , filters, tubing, humidifier and lifetime supplies. 1 Device 0 01/09/2019 Active CPAP Indications: Obstructive sleep 01-09-2019 [facility] (87769) apnea syndrome Initiate Auto PAP @ 5-20 cm of water with humidification. Mask (per patient preference) optional chin strap (if indicated) , filters, tubing, humidifier and lifetime supplies. 1 Device 0 01/09/2019 Active CPAP Indications: Obstructive sleep 01-09-2019 [facility] (20634) apnea syndrome Initiate Auto PAP @ 5-20 cm of water with humidification. Mask (per patient preference) optional chin strap (if indicated) , filters, tubing, humidifier and lifetime supplies. 1 Device 0 01/09/2019 Active CPAP Indications: Obstructive sleep 01-09-2019 [facility] (73813) apnea syndrome Initiate Auto PAP @ 5-20 [...] and lifetime supplies. cyclobenzaprine cyclobenzaprine (FLEXERIL) 04-26-2017 [facility] 10 mg tablet Take 1 tablet ( 78473) by mouth at bedtime as needed. 45 tablet 2 04/26/2017 Active Comment: Take 1 tablet by mouth at be dtime as needed. Lisinopril lisinopril (ZESTRIL, 11-22-2019 - [facility] PRINIVIL) 10 mg tablet 01-29-2020 (4419 5) Take 1 tablet by mouth once daily. 30 tablet 1 11/22/2019 01/29/2020 Discontinued Comment: Take 1 tablet by mouth once daily. Losartan losartan (COZAAR) 25 mg 01-29-2020 Janay ([facility]) Abisai staton [facility] tablet Take 1 tablet by (441 95) mouth once daily. 30 tablet 1 01/29/2020 Active Comment: Take 1 tablet by mouth once daily. Naproxen naproxen sodium (ALEVE) 02-18-2016 Margaret ([facility]) [facility] (78291) 220 mg tablet Take 1 tablet by mouth twice daily with meals. TAKE WITH FOOD 0 02/18/2016 Active Comment: Take 1 tablet by mouth twice daily with meals. TAKE WITH FOOD Nystatin nystatin (MYCOSTATIN) powder 12-13-2019 [facility] Indications: Intertriginous (01277) candidiasis Apply 1 application to affected area four times daily. 2 Bottle 1 12/13/2019 Active Comment: Apply 1 application to affec jania area four times daily. 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 (24987) Other nervous system Bilateral carpal tunnel Active - [facility] disorders syndrome (70497) Other nutritional; Body mass index 25-29 - Active 01-19-2017 - [facility] endocrine; and overweight (29235) metabolic disorders Residual codes; Obstructive sleep apnea Active 12-19-2018 - [facility] unclassified syndrome (30640) Rheumatoid arthritis Arthropathy of lumbar Active 04-26-2017 - [facility] and related disease facet joint (50118) Spondylosis; Lumbosacral spondylosis Active 04-26-2017 - [facility] intervertebral disc (52449) disorders; other back problems Past or Other Problems Category Problem Name Status Date Location Other lower H/O: respiratory Completed 01-19-2017 - [facility] linic respiratory disease disease (81752) Results Result Name Value Range Unit Interpretation Flag Date Location [facility] on 2020-01-29 [facility] Telephone (INTMWS) Normal 01-29-2020 [facility] DEANNE MCGOVERN ([id number]) 1975 M [place] Date Time Provider Department (06387) 01/29/20 ROBERTO CARLOS SCHERER INTMWS During your visit today, we recorded the following informati on about you: Christi Mosley LPN 01/29/2020 10:38 AM Signed Patient calling complaints of dry cough thinks it is f rom the Lisinopril rx. Patient asking for replacement rx. Patient uses [facility] for his pharmacy. Can call patient back before 2 pm, works at 230 pm today. Please advise Janay Patricio APRN.SLIP COVER OPERATOR 01/29/2020 1:11 PM Signed Can switch to losartan, please make sure to keep scheduled appointment with to recheck BP. The following approved medic ation requests have been transmitted electronically. Signed Prescriptions Disp Refills losartan (COZAAR) 25 mg tablet 30 tablet 1 Sig: Take 1 tablet by mouth once daily. Authorizing Provider: JANAY PATRICIO (SLIP COVER OPERATOR) Janay Patricio APRN.ROSAURA Lissshemar Rebollar Ma 01/29/2020 2:31 PM Signed Patient notified. Allergies As of Date: 01/29/2020 Noted Allergy Reaction ASA (SALICYLATES) 04/09/2005 2 - Rash BACTRIM (SULFAMETHOXAZOLE-TRIMETH*10/26/2012 14 - Other: See Comments Comments: Photodermatitis BEES 04/09/2005 7 - Swelling LATEX 10/26/2012 14 - Other: See Comments Comments: Dermatology tested. Date Reviewed: 11/14/2019 Reviewed by: Lady Rogel (Wind Tunnel Engineer [employer] Developer) Dylan - Fully Assessed Reason for Visit: [...] on 2020-01-18 CNPN Telephone (INTMWS) Normal 01-18-2020 [place] [facility] DEANNE MCGOVERN ([id number]) 1975 [facility] Date Time Provider Department (01567) 01/18/20 ROBERTO CARLOS SCHERER INTMWS During your visit today, we recorded the following informati on about you: Rika Serrano RN 01/18/2020 10:25 AM Signed Patient is dropping off an outside lab order for Western b lot test that PCP will need to complete and ca ll patient when ready to flower buncher or picker. Patient found out that [facility] cannot run this test and he will have to take the order to [facility] for completion. Please review and advise. [...] picked up. Patient stated that he will flower buncher or picker tomorrow morning. Leona Ramirez LPN Allergies As of Date: 01/18/2020 Noted Allergy Reaction ASA (SALICYLATES) 04/09/2005 2 - Rash BACTRIM (SULFAMETHOXAZOLE-TRIMETH*10/26/2012 14 - Other: See Comments Comments: Photodermatitis BEES 04/09/2005 7 - Swelling LATEX 10/26/2012 14 - Other: See Comments Comments: Dermatology tested. Date Reviewed: 11/14/2019 Reviewed by: Lady Rogel (Wind Tunnel Engineer [facility]) Dylan - Fully Assessed Reason for Visit: [...] on 2019-12-14 CNPN Telephone (INTMWS) Normal 12-14-2019 [place] DEANNE Fischer ([id number]) 1975 [facility] Date Time Provider Department (03305) 12/14/19 ROBERTO CARLOS SCHERER INTMWS During your visit today, we recorded the following informati on about you: Kimberley Tubbs RN 12/14/2019 1:19 PM Signed Patient reports he contacted the [facility] . Reports they are the only one who does the Western Blot blood test for herp es, and it is the most accurate. They are sending him the kit. Reports they n eed an order from pcp. Instructions will come with kit. Once th ey read the instructions will call pcp to either flower buncher or picker Rx or have pcp send to [facility]. Allergies As of Date: 12/14/2019 Noted Allergy Reaction ASA (SALICYLATES) 04/09/2005 2 - Rash BACTRIM (SULFAMETHOXAZOLE-TRIMETH*10/26/2012 14 - Other: See Comments Comments: Photodermatitis BEES 04/09/2005 7 - Swelling LATEX 10/26/2012 14 - Other: See Comments Comments: Dermatology tested. Date Reviewed: 11/14/2019 Reviewed by: Lady Rogel (Sofiya [employer] Developer) Dylan - Fully Assessed Reason for Visit: [...] 12/21/19 progress on 2019-11 PROGRESS HNO ID: [id number] Normal 12-13-2019 [facility] Author: Roberto Carlos Scherer Quinonez ([id number]) Service: ? Author Type: Physician Type: Progress [...] Herpes Simplex IgG 1 >8.0 Normal 0 [facility] (38722) Comment: Result Comment: INDEX VALUES ARE INTERPRETED FOLLOWS: NEGATIVE SPECIMENS <0.9 EQUIVOCAL SPECIMENS 0.9 TO 1 .0 POSITIVE SPECIMENS >=1.1 Performed By: #### HSVG12 ## ##[address] [phone] Herpes Simplex IgG 2 <0.2 Normal 0 [facility] (41291) Comment: Result Comment: INDEX VALUES ARE INTERPRETED FOLLOWS: NEGATIVE SPECIMENS <0.9 EQUIVOCAL SPECIMENS 0.9 TO 1 .0 POSITIVE SPECIMENS >=1.1 Performed By: #### HSVG12 ## ##[address] [phone] HSV IgG 1 Positive Negative Critically 12-13-2019 [facility] Qualitative abnormal [facility] (27422) Comment: Result Comment: IgG antibody to HSV-1 detected Performed By: #### HSVG12 ## ##[address] [phone] HSV IgG 2 Qualitative Negative Negative Normal 12-13-19 20 [facility] (59094) Comment: Result Comment: No HSV-2 IgG antibodies detected. Patient is presumed not to h ave had a previous HSV-2 infection. Performed By: #### HSVG12 ## ##[address] [phone]- [phone] herpes simplex igm on 2019-12-13 Herpes Simplex IgM 1.10 0-0.90 OD Ratio High 12-13-2019 [facility] (04902) Comment: Result Comment: INDEX VALUES /OD RATIOS ARE INTERPRETED FOLLOWS: NEGATIVE SPECIMENS <=0.90 EQUIVOCAL SPECIMENS 0.91 TO 1.09 POSITIVE SPECIMENS >=1.10 Performed By: #### HSVM #### [facility], [place] [phone] HSV IgM Qualitative Positive Negative Critically 0 [facility] abnormal [place] (26807) Comment: Result Comment: IgM antibodi es specific to HSV-1 or HSV-2 were detected. It is n ot possible to distinguish between HSV-1 and HSV-2 with this test system. Posit chyna values indicate a primary or reacti vated infection with HSV-1 or HSV- 2. Performed By: #### HSVM #### [facility], [place] [phone] cnpn on 2019-12-13 CNPN Telephone (INTMWS) Normal 12-13-2019 [place] [facility] DEANNE MCGOVERN ([id number]) 1975 [facility] Date Time Provider Department () 12/13/19 ROBERTO [...] is: HSV 1,2 Antibodies, IgG and IgM [employer] HSVGM CPT Codes [id number] Includes HSV IgG Type 1 Antibody HSV [...] Date Reviewed: 11/14/2019 Reviewed by: Lady Rogel (Wind Tunnel Engineer [employer] Developer) Dylan - Fully Assessed Reason for Visit: [...] CNOV Office Visit (INTMWS) Normal 12-13-19 20 [place] [facility] DEANNE MCGOVERN ([id number]) 1975 [facility] Date Time Provider Department (03203) 12/13/19 9:00 AM ROBERTO CARLOS SCHERER INTMWS [...] 2:37 PM Signed Addended by: ROBERTO CARLOS SCHREER MD on: 12/13/2019 02:37 PM Modules accepted: Orders Referring Provider: SELF [200] Allergies As of Date: 12/13/2019 Noted Allergy Reaction ASA (SALICYLATES) 04/09/2005 2 - Rash BACTRIM (SULFAMETHOXAZOLE-TRIMETH*10/26/2012 14 - Other: See Comments Comments: Photodermatitis BEES 04/09/2005 7 - Swelling LATEX 10/26/2012 14 - Other: See Comments Comments: Dermatology tested. Date Reviewed: 11/14/2019 Reviewed by: Lady Rogel (Wind Tunnel Engineer [employer] Developer) Dylan - Fully Assessed Reason for Visit: Established Patient [175] Primary Visit Diagnosis:Herpes genitalis in men [A60.02] Other Visit Diagnoses:Skin infection [L08.9] Intertriginous candidiasis [B37.2] Order(s):HSV 1 AND 2 IGM ABS, INDIRECT [[id number]] Order #: [id number] FUTURE HSV-2 TYPE SPEC AB, IGG W/RFLX [8717766] Order #: [id number] FUTURE HSV 1 AND 2 IGM ABS, INDIRECT [5202765] Order #: [id number] HSV-2 TYPE SPEC AB, IGG W/RFLX [5942815] Order #: [id number] acyclovir (ZOVIRAX) 400 mg tabletTake 1 tablet by mouth thre e times daily for 7 days.Disp: 21 tabletRfl: 1 nystatin (MYCOSTATIN) powderApply 1 application to affected area four times daily.Disp: 2 BottleRfl: 1 doxycycline (VIBRA-TABS) 100 mg tabletTake 1 tablet by mouth twice daily for 10 days.Disp: 20 tabletRfl: 0 HSV-2 TYPE SPEC AB, IGG W/RFLX [9395668] Order #: [id number] FUTURE HSV 1 AND 2 IGM ABS, INDIRECT [3583978] Order #: [id number] FUTURE HSV-2 TYPE SPEC AB, IGG W/RFLX [9392607] Order #: [id number] HSV 1 AND 2 IGM ABS, INDIRECT [[id number]] Order #: [id number] HSV-2 TYPE SPEC AB, IGG W/RFLX [1265396] Order #: [id number] FUTURE HSV-2 TYPE SPEC AB, IGG W/RFLX [5090226] Order #: [id number] HERPES SIMPLEX IGM AB [SQHS] Order #: [id number] FUTURE Prescriptions as of 12/13/2019 Sig: ACYCLOVIR [...] (INTMWS) Normal 11-22-2019 [place] DEANNE Fischer ([id number]) 1975 [facility] Date Time Provider Department (55762) 11/22/19 JANAY PATRICIO ([facility]) INTMWS During your visit today, we recorded [...] 11/22/19 progress on 2019-10 PROGRESS HNO ID: [id number] Normal 11-14-2019 [place] Author: Lady Rogel (Sofiya Ashlyn Richardson [facility] Service: ? [place] Author Type: Nurse Practitioner ([id number]) Type: Progress Notes Filed: 11/14/2019 4:03 PM Note Text: Subjective HPI Deanne Kurt Mcgovern is a 43 year old male who presents with right ear pressure, decreased hearing, and bloody drainage for that started last night. Denies pain. No URI symptoms, fever, or chills. No recent swimming, itching of the ear, or trauma. Works for [employer]- not around any loud [employer]. No history of ear issues similar to [...] twice daily with meals. TAKE WITH FOOD jnuzxiob-gbgugdaoc-vqbholfhecyfep (CORTISPORIN) 3.5-10,000-1 mg/mL-unit/mL-% otic suspension Use 3 [...] - keep ear clean and dry - YXVWANHO-TMBFSUXME-FXMYURJRR 3.5 MG-10,000 UNIT/ML-1 % EAR DROPS,SUSP All of the above discussed with the patient in detail. Misty fernandez is in agreement with the above plan. Treatment and plan of care di scussed including course of treatment, possible medication side effe cts, and what to watch for in regards to worsening signs and symptoms. All questions addressed. Lady Richardson APRN.SLIP COVER OPERATOR cnov on 2019-11-14 CNOV Office Visit ([facility]) Normal 11-14-19 [place] [facility] DEANNE MCGOVERN ([id number]) 1975 M [place] Date Time Provider Department ([id number]) 11/14/19 3:00 PM LADY RICHARDSON ([employer] BI ARCHITECT, SLIP COVER OPERATOR)UCWSTR During your visit today, we recorded the following informati on about you: Temperature Pulse Respiration Blood pressure 98.2 degrees 76/minute 16/minute 132/88 Weight 103.2 kg Lady Richardson APRN.SLIP COVER OPERATOR 11/14/2019 4:03 PM Signed Subjective HPI Deannecaro Mcgovern is a 43 year old male who presents with right ear pressure, decreased hearing, and bloody drainage for that started last night. Denies pain. No URI symptoms, fever, or chills. No recent swimmin g, itching of the ear, or trauma. Works for [employer]- not around any loud [place]. No history of ear issues similar to [...] twice daily with meals. TAKE WITH FOOD uhlqqtfv-vnfrzxzyv-trwjnihqsyyhhw (CORTISPORIN) 3.5-10 ,000-1 mg/mL-unit/mL-% otic suspension Use [...] - keep ear clean and dry - QCXDPJGI-VABZZZTAE-JYWDHACAN 3.5 MG-10,000 UNIT/ML-1 % EAR DROPS,SUSP All of the above discussed with the zuleyka ent in detail. Patient is in agreement with the above plan. Treatment and plan of care discussed including course of treatment, possible medication side effects, and what to watch for in regards to worsening signs and symptoms. All questions addressed. Lady Richardson, SOFIYA.SLIP COVER OPERATOR Referring Provider: SELF [200] Allergies As of Date: 11/14/2019 Noted Allergy Reaction ASA (SALICYLATES) 04/09/2005 2 - Rash BACTRIM (SULFAMETHOXAZOLE-TRIMETH*10/26/2012 14 - Other: See Comments Comments: Photodermatitis BEES 04/09/2005 7 - Swelling LATEX 10/26/2012 14 - Other: See Comments Comments: Dermatology tested. Date Reviewed: 11/14/2019 Reviewed by: Lady Rogel (Wind Tunnel Engineer [employer] Developer) Dylan - Fully Assessed Reason for Visit: Ear Problem [38] Cmt: RIGHT ear pressure with blood x 1 day Primary Visit Diagnosis:Acute otitis externa of right ear, unspecified type [H60.501] Order(s):jtqttbor-xsmfdwtbj-cxfldfrpgaglsv (CORTISPORIN) 3.5 -10,000-1 mg/mL-unit/mL-% otic suspensionUse 3 [...] Take 1 tablet by mouth twice * PXEFUCKA-IGVIHLPOY-HNZMUPFZJ * Use 3 Drops in the right ear * Problem List As Of Date 11/14/2019 Noted Resolved Depressive disorder, not elsewhere classified [*09/06/2007 0 01/19/2017 SPONDYLOLISTHESIS [Q76.2] 09/06/2007 Essential hypertension, benign [I10] 11/19/2013 01/19/2017 History of pleural empyema [Z87.09] 01/19/2017 More... Overweight (BMI 25.0-29.9) [FVW8698] 01/19/2017 More... Carpal tunnel syndrome, bilateral [G56.03] 01/19/2017 Facet arthropathy, lumbar (HCC) [M47.816] 04/26/2017 More... Spondylosis of lumbosacral region [M47.817] 04/26/2017 Obstructive sleep apnea [G47.33] 12/19/2018 Prescriptions ordered this encounter Disp Refills Start End RTJGTFLS-NKLCKXNUW-HYXADSCSK 3.5 MG-* 1 Vj* 0 11/14/201905/2019 Route: RIGHT EAR Sig: Use 3 Drops in the right ear four times daily for 7 day s. Encounter Status:Closed by DYLAN ARRIAZA.LADY ZAVALA on 11/13 progress on 2019-10 PROGRESS HNO ID: [id number] Normal 10-24-2019 [facility] Author: George (Rosaura) [facility] ([id number]) Service: ? Author Type: Nurse Practitioner Type: [...] care. This no te was generated using [employer] software. It may contain errors in wo rding, punctuation, or spelling. George Choi APRN.SLIP COVER OPERATOR cnov on 2019-10-24 CNOV Office Visit ([facility]) Normal 10-24-19 20 [place] [facility] DEANNE MCGOVERN ([id number]) 1975 [facility] Date Time Provider Department ([id number]) 10/24/19 8:45 AM GEORGE CHOI (ROSAURA) [facility] [...] care . This note was generated using [employer] software. It may contain errors in wording, punctuation, or spelling. George Choi APRN.[facility] Referring Provider: SELF [200] Allergies As of Date: 10/24/2019 Noted Allergy Reaction ASA (SALICYLATES) 04/09/2005 2 - Rash BACTRIM (SULFAMETHOXAZOLE-TRIMETH*10/26/2012 14 - Other: See Comments Comments: Photodermatitis BEES 04/09/2005 7 - Swelling LATEX 10/26/2012 14 - Other: See Comments Comments: Dermatology tested. Date Reviewed: 10/24/2019 Reviewed by: George ([employer] Developer) Jimbo - Fully Assessed Reason for Visit: [...] empyema [Z87.09] 01/19/2017 More... Overweight (BMI 25.0-29.9) [NAV2378] 01/19/2017 More... Carpal tunnel syndrome, bilateral [G56.03] 01/19/2017 Facet arthropathy, lumbar (HCC) [M47.816] 04/26/2017 More... Spondylosis of lumbosacral region [M47.817] 04/26/2017 Obstructive sleep apnea [G47.33] 12/19/2018 Encounter Status:Closed by JIMBO ARRIAZA.GEORGE ZAVALA on obsolete on 2019-08 OBSOLETE Refill (INTMWS) Normal 09-10-2019 [facility] DEANNE Fischer ([id number]) 1975 [facility] Date Time Provider Department ([id number]) 09/10/19 MARGARET RAGSDALE (ROSAURA) INTMWS During your [...] daily. JAIDEN: No Authorizing Provider: JANAY PATRICIO (SLIP COVER OPERATOR) Janay Patricio APRN.CNP Allergies As of Date: [...] empyema [Z87.09] 01/19/2017 More... Overweight (BMI 25.0-29.9) [IZP4200] 01/19/2017 More... Carpal tunnel syndrome, bilateral [G56.03] [...] 09/11/19 progress on 2019-06 PROGRESS HNO ID: [id number] Normal 07-17-2019 [facility] Author: Kimberley Deshpande (Pa-C) Steven Quinonez ([id number]) Service: ? Author Type: Physician Administrative Resident Type: Progress Notes Filed: 07/17/2019 9:01 PM [...] 2019-07-17 CNOV Office Visit ([facility]) Normal 07-17-[address] [place] [address] DEANNE Fischer ([id number]) 1975 [facility] Date Time Provider Department ([id number]) 07/17/19 7:45 PM Kimberley HARRIS) WSTR During [...] Diagnosis:Sore throat [J02.9] Order(s):RAPID STREP TEST B/O [[id number]] Order #: [id number] Prescriptions as of 07/17/2019 Sig: CPAP Initiate [...] 07/17/19 progress on 2019-03 PROGRESS HNO ID: [id number] Normal 04-11-2019 [place] Author: Kassidy Nice [facility] Service: ? [place] Author Type: Physician ([id number]) Type: Progress Notes Filed: 04/11/2019 9:38 AM Note Text: [facility] New Patient Evaluation Deanne Mcgovern was evaluated at the [place] location Time out: 9:36 Time in: 9:13 For this visit, a total wrnj-yh-wumt time with the patient c omprised 23 minutes, with at least 50% of that time devoted to face-to-f martha counseling and coordination of care, with especial emphasis placed on a nswering the patient?s and/or family?s questions in a form that they can understand and appreciate. PATIENT NAME: Deanne Mcgovern DATE OF SERVICE: April 03, 2019 Insurance: MMO Home Location: [place] CONSULTING PROVIDER: ROBERTO CARLOS SCHERER MD [address] [facility] [place] [address] REASON FOR CONSULT: Roberto Carlos Scherer sends the patient for an op inion about treating DARRELL. My findings and recommendations will be transm itted electronically via shared medical record to the consulting michael addison. Relevant Medications, allergies, hx Reviewed: yes HISTORY: DARRELL: With the family hx, was concerned about him having DRARELL, with her noting that he may stop [...] between 2 and 4 after working second [employer]. Activities before going to bed: Winding down. 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 He is a [...] Overweight, Congenital spondylolisthesis, HTN. Case Formulation / [place] (may include pt's hopes, fears, ex pectations, concerns): Compliant and benefitting. Download shows AHI of 2.7, with pressures 5-8 used, using th e machine 80% of nights, with minimal leaks. Actions taken: Motivational Interviewing aspects taken Review, Establishing care Follow up yearly with Nisha or Margaret Nice MD Beeper: [id number] cnov on 2019-04-11 CNOV Office Visit ([facility]) Normal 04-11-[address] [place] [address] DEANNE Fischer ([id number]) 1975 M [place] Date Time Provider Department ([id number]) 04/11/19 9:00 AM KASSIDY NICE During your visit today, we recorded the following informati on about you: Pulse Respiration Blood pressure Weight 76/minute 16/minute 136/80 98.4 kg Kassidy Nice MD 04/11/2019 9:38 AM Signed [facility] New Patient Evaluation Deanne Mcgovern was evaluated at the [place] location Time out: 9:36 Time in: 9:13 For this visit, a total jmrp-in-geth time with the patient c omprised 23 minutes, with at least 50% of that time devoted to mmmv-yt-vyrh counseling and coordination of care, with especial emph asis placed on answering the patient?s and/or family?s questions in a form that they can unde rstand and appreciate. 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 He is a [...] Overweight, Congenital spondylolisthesis, HTN. Case Formulation / [place] (may include pt's hopes, fears, ex pectations, concerns): Compliant and benefitting. Download shows AHI of 2.7, with pressures 5-8 used, us ing the machine 80% of nights, with minimal leaks. Actions taken: Motivational Interviewing aspects taken Review, Establishing care Follow up yearly with Nisha or Margaret Nice MD Beeper: [id number] Referring Provider: ROBERTO CARLOS SCHERER [[id number]] Allergies As of Date: 04/11/2019 Noted Allergy [...] 04/11/19 progress on 2019-02 PROGRESS HNO ID: [id number] Normal 03-08-2019 [facility] Author: Roberto Carlos Scherer [place] ([id number]) Service: ? Author Type: Physician Type: Progress [...] 2019-03-08 CNOV Office Visit (INTMWS) Normal 03-08-[address] [place] [address] Clinic DEANNE MCGOVERN ([id number]) 1975 M [place] Date Time Provider Department ([id number]) 03/08/19 9:40 AM ROBERTO CARLOS SCHERER INTMWS [...] 03/08/19 progress on 2019-02 PROGRESS HNO ID: [id number] Normal 02-24-2019 [place] Author: Ale Gonzalez) [facility] Service: ? 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 Patient advised if symptoms do not improve or if symptoms worsen vandana ner, to contact their primary care physician. Potential red flag sym ptoms discussed with the patient. Reviewed appropriate action plan to take if red flag symptoms occur. Patient agreeable to treatment plan . 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 There is normal architecture and mineralization of the bones. There is no acute fracture or dislocation. Joint spaces are maintained. Impression: 1. No acute fracture or dislocation. Acquisition Analyst: JUDITH Transcribe Date/Time: Feb 06 2019 10:13A Dictated by : NOELLE WALTER MD This examination was interpreted and the report reviewed and electronically signed by: NOELLE WALTER MD on Feb 06 2019 10:14AM EST [id number] progress on 2019-01 PROGRESS HNO ID: [id number] Normal 02-06-2019 [facility] Author: Jeanne Meyer (Rt) Angle Armenta ([id number]) Service: ? Author Type: Customer Sales Representative Type: Progress Notes Filed: 02/06/2019 10:05 AM [...] 06, 2019 9:57 AM PROGRESS HNO ID: [id number] Normal 02-06-2019 [facility] Author: Fe Vaughan) Mehdi [place] ([id number]) Service: ? 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: [employer] Financial resource strain: Not on file Food [...] file Gets together: Not on file Attends christian service: Not on file Active member of [...] GENERAL 3V OR MORE AP/TRUE AP/OTHER RT [[id number]] Order #: [id number] FUTURE methylPREDNISolone (MEDROL, CRISTINO,) 4 mg Dose-PackFollow [...] 48 HR HOLTER IMPRESSIONS AND Normal 10-27-2017 [facility] MONITOR FINDINGS:Scanned (00 [phone]) [id number] basic underlying rhythm is sinus with an [...] Hookup Date: 20171027 Hookup Time: Recording Duration: 076042 S Minimum Heart Rate: 49 BPM Minimum Heart Rate Date/Time: 20171029 Maximum Heart Rate: 144 BPM Maximum Heart Rate Date/Time: 20171028 Average Heart Rate: 90 BPM Longest RR: 1.664 S Longest RR DATE/TIME: 20171027 [id number] QRS complexes: [id number] Ventricular Ectopics: 5 Ventricular Isolated Beats: 5 [...] Date Type Reason Provider Location 10-27-2017 Ambulatory [facility] ([id number]) 02-29-2020 - Patient encounter External Provider [facility] 02-29-2020 procedure 02-29-2020 - Results Only External Provider External-N on[facility] 02-29-2020 01-29-2020 - Telephone encounter Roberto Carlos Scherer [facility] 01-29-2020 [place] Comment: lisinopril causing dry cough 01-18-2020 - 01-18-2020 Telephone encounter Roberto Carlos chowdhury [facility] [place] Comment: outside lab order form Procedures Procedure Name Date Provider Location EXTERNAL IMAGING 02-29-2020 External Provider [place] [facility] ([id number]) EXTERNAL LAB 02-29-2020 External Provider [place] [facility] ([id number]) Plan of Treatment Plan Description Date Location DTAP,TDAP,TD (2 - Td) DTAP,TDAP,TD (2 - Td) 11-20-2023 - [facility] 11-20-2023 ([id number]) LIPID SCREEN LIPID SCREEN 01-19-2022 - [facility] 01-19-2022 ([id number]) DIABETES SCREEN DIABETES SCREEN 01-08-2022 - [facility] 01-08-2022 ([id number]) ANNUAL PCP TEAM CHRONIC ANNUAL PCP TEAM CHRONIC 12-12-2020 - [facility] DISEASE VISIT DISEASE VISIT 12-12-2020 ([id number]) BP CONTROLLED (<130/80) BP CONTROLLED (<130/80) 12-12-2020 - [facility] 12-12-2020 ([id number]) INFLUENZA (#1) INFLUENZA (#1) 2020 - [facility] 01-22-2020 ([id number]) HEPATITIS C SCREENING HEPATITIS C SCREENING 1992 - [facility] 1992 ([id number]) HIV SCREENING HIV SCREENING 1992 - [facility] 1992 ([id number]) no information [facility] ([id number]) Immunizations Vaccine Notes Status Date Location Pneumovax pneumococcal (completed) 11-19-2013 - [facility] c polysaccharide vaccine, 11-19-2013 (441 95) 23 valent Tetanus/Diphtheria tetanus and diphtheria (completed) 10-22-2003 - [facility] Unspec toxoids, not adsorbed, 10-22-2003 (4419 5) for adult use Tdap (Age 7+) tetanus toxoid, reduced (completed) 11-19-2013 - [facility] diphtheria toxoid, and 11-19-2013 (4419 5) acellular pertussis vaccine, adsorbed Payers Payer Name Policy Number Location MMO [id number] [facility] (44 399) The following information is from the original human readable contentNo Payer Records FoundNo Payer Records FoundNo Payer Records Found Social History Type Social History Date Location Description History of tobacco use Current smoker 06-04-2013 [facility] ([id number]) History SDOH Alcohol Std 1 10-22-2019 - [facility] Drinks 10-22-2019 ([id number]) History of tobacco use Cigarette Smoker 06-04-2013 [facility] ([id number]) Cigarettes smoked 11-14-2019 - [place] [facility] current (pack per day) - 11-14-2019 (15766) Reported Tobacco use and exposure Never used 11-14-2019 [facility] 11-14-2019 (94720) Alcohol intake Current non-drinker of 11-14-2019 [facility] alcohol (finding) 11-14-2019 ([id number]) History SDOH Alcohol 98 10-22-2019 [facility] C linic Frequency 10-22-2019 (38015) Tobacco smoking status Former smoker 11-14-2019 - [facility] NHIS 11-14-2019 ([id number]) History SDOH Social 5 10-22-2019 - [facility] in[facility] Phone 10-22-2019 ([id number]) History SDOH Social 2 10-22-2019 - [place] [facility] Membership 10-22-2019 ([id number]) History SDOH Social 8 10-22-2019 - [place] [facility] Living 10-22-2019 ([id number]) History SDOH Physical 6 10-22-2019 - [facility] Activity MPS 10-22-2019 ([id number]) History SDOH Stress 3 10-22-2019 - [place] [facility] in[facility] 10-22-2019 (90773) History SDOH Education 15 10-22-2019 - [facility] 10-22-2019 ([id number]) Sex Assigned At Male [facility] ([id number]) The following information is from the original [...] BE BASED ON THE PRIMARY CLINICAL RECORDS. [facility] provides no warranty or guarantee of the accuracy or completeness of information in this document. UNRECOGNIZED CONTENT PROVIDED BELOW FOR UNRECOGNIZED SECTION No Status Records FoundNo Status Records Found UNRECOGNIZED CONTENT PROVIDED BELOW FOR UNRECOGNIZED SECTION INFORMATION SOURCE DATE CREATED AUTHOR AUTHOR'S ORGANIRMAO N 11/08/2017 [facility] DATE CREATED AUTHOR AUTHOR'S ORGANIZATIO N 01/30/2020 [facility] UNRECOGNIZED CONTENT PROVIDED BELOW FOR UNRECOGNIZED SECTION Source Comments In the event this information is protected by the Federal Confidentiality of Alcohol and Drug Abuse Patient Records regulations: The Federal rules restrict any use of the information to criminally investigate or prosecute any alcohol or drug abuse patient.[facility] the event this information is protected by the Federal Confidentiality of Alcohol and Drug Abuse Patient Records regulations: The Federal rules restrict any use of the information to criminally investigate or prosecute any alcohol or drug abuse patient.[facility] the event this information is protected by the Federal Confidentiality of Alcohol and Drug Abuse Patient Records regulations: The Federal rules restrict any use of the information to criminally investigate or prosecute any alcohol or drug abuse patient.[facility] Hospital[facility] the event this information is protected by the Federal Confidentiality of Alcohol and Drug Abuse Patient Records regulations: The Federal rules restrict any use of the information to criminally investigate or prosecute any alcohol or drug abuse patient.[facility] UNRECOGNIZED CONTENT PROVIDED BELOW FOR UNRECOGNIZED [...] picked up. Patient stated that he will flower buncher or picker tomorrow morning. Leona Ramirez LPN elephone [...] complete and call patient when ready to flower buncher or picker. Patient found out that [facility] cannot run thistest and he will have to take the order to [facility] for completion. Please review and advise. Rika Serrano RN documented in this encounterTelephone Encounter - Liss Rebollar Ma - 01/29/2020 2:31 PM EDT Patient notified. Telephone Encounter - Janay Patricio ([facility]) - 01/29/2020 1:10 PM EDT Can switch to losartan, please make sure to keep scheduled appointment with to recheck BP. The following approved medication requests have been transmitted electronically. Signed Prescriptions Disp Refills losartan (COZAAR) 25 mg tablet 30 tablet 1 Sig: Take 1 tablet by mouth once daily. Authorizing Provider: JANAY PATRICIO ([place]) Janay Patricio APRN.SLIP COVER OPERATOR elephone Encounter - Christi Mosley LPN - 01/29/2020 10:35 AM EDTPatient calling complaints of dry cough thinks it is from the Lisinopril rx. Patient asking for replacement rx. Patient uses [facility] for his pharmacy. Can call patient back before 2 pm, worksat 230 pm today. Please advise documented in this encounter
== END 2019-10-28 00:46 | disposition home or self-care (01) ==
PROVIDERS: Emergency Provider Emergency Medicine; PCP Internal Medicine
DX: S46.812A Strain of other muscles, fascia and tendons at shoulder and upper arm level, left arm, initial encounter (principal); X50.0XXA Overexertion from strenuous movement or load, initial encounter; Y93.9 Activity, unspecified; Y92.9 Unspecified place or not applicable; Z87.891 Personal history of nicotine dependence
CPT/HCPCS: 96372; 99283

== ENCOUNTER 2019-11-19 23:29 | Emergency (ER) | payer OTHER, SELFPAY ==
[2019-11-19 23:30] VITALS: BP 124/99; PULSE 93; RESP 18; TEMP 36.3; O2SAT 98; BMI 30.6
--- NOTE | 2019-11-19 23:49 | RAD_ITS ---
STUDY: X-RAY - LEFT SHOULDER REASON FOR EXAM: Male, 43 years old. nki -- c/o lt shoulder pain x 2 weeks TECHNIQUE: 4 view(s) of the shoulder. COMPARISON: Chest x-ray 01/02/2017. FINDINGS: Normal glenohumeral articulation. Normal acromioclavicular joint. Normal acromion. There are 7 mm and 8mm sclerotic foci in the humeral head which are well-circumscribed and are likely to represent benign bone islands. Otherwise normal humeral head and visualized proximal humerus. The soft tissue structures are unremarkable. Normal visualized pulmonary apex. There is chronic deformity of the left seventh rib. RAD/Shoulder min 2 Views IMPRESSION: No demonstrated fracture, dislocation, or destructive osseous lesion. Small sclerotic foci in the humeral head or likely represent benign bone islands, no clinical significance. However, if there are persistent symptoms, consider MRI for further evaluation. Electronically Signed: Moses Pinedo MD at 0:24 EDT , Service support ,
--- NOTE | 2019-11-20 00:11 | ED.VIS.UPPEX ---
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 much worse when he sneezed tonight. 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 He is right-hand dominant. Couple days after that, he started noticing soreness in his anterior left shoulder. For the last week or so that has progressed to pain that is radiating down his arm to his hand. He has no finger pain. All of it is worse with shoulder movements but he has full range of motion. He points to the clavicle as the area where he has most of his pain and states by name. He denies any neck pain. Denies any numbness or weakness. No other injuries. No issues with the other extremities, no chest pain, shortness of breath, or left upper quadrant pain. - Past Medical History (1) Kidney stone Status: Resolved Past Medical History - Allergies and Home Meds Allergies/Adverse Reactions: Allergies aspirin Allergy (Verified 10/27/19 23:27) Rash latex Allergy (Verified 10/27/19 23:27) Rash Primary Care Physician: Erica Negro MD [Primary Care Provider] - Surgical History: no surgical history Lives: With Family Smoking Status: Former smoker Review of Systems General: Denies: Chills, Fever, Sweats Eyes: Denies: Visual changes - bilaterally, Diplopia ENT: Denies: Rhinorrhea, Sore throat Cardiovascular: Denies: Chest pain, Palpitations Respiratory: Denies: Dyspnea, Cough, Dyspnea on exertion Gastrointestinal: Denies: Abdominal pain, Nausea, Vomiting, Diarrhea, Melena, Hematochezia Genitourinary: Denies: Dysuria, Hematuria, Frequency Musculoskeletal: Reports: Extremity Pain. Denies: Neck pain, Back pain, Swelling Skin: Denies: Rash, Wounds Neurological: Denies: Headache, Weakness, Numbness Physical Exam Vital Signs/Narrative: Vital Signs Temp Pulse Resp BP Pulse Ox 11/19/19 23:30 97.4 F L 93 18 124/99 H 98 General: Well nourished, Well developed, - - NAD Head: Normocephalic, Atraumatic Eyes: [place], EOMI ENT: No Trauma, Moist Mucous Membranes Neck: Nontender, Full ROM Respiratory: No distress Abdomen: Soft, Nontender, Nondistended, Normal bowel sounds Extremeties: Patient is the most tender at the left acromioclavicular joint. There is no swelling or deformity there. He also has tenderness at the subacromial area, and the rhomboids, and the trapezius just superior to the spine of the scapula. He has full range of motion of the shoulder including abduction with a negative drop sign, and a negative Yergason. He does not have tender dysesthesias. There is no deformity of the shoulder. Skin: Normal color, No rash, No Trauma Neurological: Alert, Oriented x3, Cranial nerves II-XII grossly intact, Normal Strength, Normal Sensation, Normal Gait Psychological: Normal affect, Normal Mood Diagnostic/Tx/Re-eval - Medical Decision Making X-rays unremarkable. Differential here includes bursitis, acromioclavicular sprain, muscle strain of the trapezius and/or other muscles of the shoulder girdle causing pain to radiate down into the arm/forearm. Also unable to exclude radiculopathy in the C5-6 area. I do not think he needs further emergent work-up here in the ER and can follow-up and continue NSAIDs, muscle relaxers. Given an Ultram here tonight for his pain. ED Disposition - Plan for ED Patient: Disposition: Home or Assisted Living Diagnosis: Left shoulder pain Instructions: ED Shoulder Pain Uncertain Cause Referrals: Erica Negro MD [Primary Care Provider] - Antwon Carroll DO [STAFF PHYSICIAN] - 1 Week if not improving
[2019-11-20] MEDS: traMADol 50 MG Tablet PO (00:27)
[2019-11-20 00:28] VITALS: BP 117/78; PULSE 74; RESP 17; O2SAT 99
== END 2019-11-20 00:29 | disposition home or self-care (01) ==
PROVIDERS: Emergency Provider Emergency Medicine; PCP Internal Medicine
DX: M25.512 Pain in left shoulder (principal); Z87.891 Personal history of nicotine dependence
CPT/HCPCS: 73030; 99283

== ENCOUNTER 2020-10-08 00:24 | Emergency (ER) | payer OTHER, SELFPAY ==
[2020-10-08 00:25] VITALS: BP 162/99; PULSE 64; RESP 16; TEMP 36.3; O2SAT 94; BMI 31.9
--- NOTE | 2020-10-08 00:30 | CT_ITS ---
STUDY: CT ABDOMEN AND PELVIS WITHOUT CONTRAST REASON FOR EXAM: Male, 44 years old. Kidney Stone RADIATION DOSAGE (If Supplied By Facility): CTDIvol = ( 16.15 ) mGy, DLP = ( 863.74 ) mGycm TECHNIQUE: Transaxial images were obtained from the dome of the diaphragm to the symphysis pubis without oral contrast, and without intravenous contrast. Sagittal and coronal images were reconstructed. Individualized dose optimization techniques were used for this CT. COMPARISON: None. FINDINGS: The visualized lung bases are unremarkable. The visualized portions of the heart are within normal limits. Mild diffuse fatty liver. Normal gallbladder and extrahepatic biliary system. Normal spleen. Normal pancreas. Normal bilateral adrenal glands. Provided middle renal pole stone, nonobstructive measuring 4 mm. There is mild left hydronephrosis with a stone at the left UP junction measuring 6 mm. There are multiple left-sided intrarenal stones with conglomerate of stones within the left upper renal pole, largest averaging approximately 5.7 mm. Normal visualized stomach. Normal small intestine. Normal colon. The appendix is visualized and appears normal. There is diffuse atherosclerotic calcification of the abdominal aorta, without a demonstrated aneurysm. Normal inferior vena cava. Normal retroperitoneum. Normal urinary bladder. Normal visualized prostate gland. Normal abdominal wall. Degenerative disease at L5-S1 with vacuum phenomena. CT/Abdomen/Pelvis without Cont IMPRESSION: Mild left hydronephrosis due to a 6 mm stone at the left UP junction. Additional multiple left-sided intrarenal stones as described above. Diffuse fatty liver, remainder of abdominal viscera are unremarkable. No acute appendicitis or bowel obstruction. Electronically Signed: Elizabeth Castillo MD at 1:41 EDT , Service support ,
--- NOTE | 2020-10-08 00:33 | EX.ED.DYSGE1 ---
HPI History of Present Illness Chief Complaint: Flank Pain Detail of Chief Complaint: Left flank pain Informant: patient Onset/Context/Timing Onset: Yesterday Context: Sudden Onset Timing: Continuous and Waxes and wanes Quality: Colicky like prior kidney stone Location: Left flank radiating anteriorly Current Severity: Moderate Maximum Severity: Severe Worsened by: Nothing Relieved by: Nothing Associated Symptoms Associated Symptoms: No associated symptom Narrative Narrative: Patient is a middle-age male with prior history of left ureteral calculus who presents with abrupt onset of left flank pain that started yesterday. He took a Zanaflex thinking it was muscle. He said there was slight improvement. Today at work he had severe pain. He denied fever, chills night sweats. Denies nausea or vomiting. He denies dysuria, frequency, urgency or hematuria. He denies testicular pain. He denies cardiac or respiratory symptoms. There is no history of trauma. Prior similar symptoms: Yes Recent Illness/Hospitalization: No PFSH PFSH Medical History (Updated 10/08/20 @ 01:[address] Maury Almanza MD) Hypertension Left ureteral calculus Scoliosis Sleep apnea Home Medications cyclobenzaprine 10 mg PO TID PRN 10/08/20 [History Last Taken Unknown] escitalopram oxalate [Lexapro] 10 mg PO DAILY 10/08/20 [History Last Taken Unknown] losartan 25 mg PO DAILY 10/08/20 [History Last Taken Unknown] oxycodone-acetaminophen 1 tab PO Q6H PRN PRN 5 Days #20 tablet 10/08/20 [Rx Last Taken Unknown] Allergy/AdvReac Type Severity Reaction Status Date / Time aspirin Allergy Rash Verified 10/27/19 23:27 bee venom protein (honey bee) Allergy Angioedema Verified 10/08/20 00:27 latex Allergy Rash Verified 10/27/19 23:27 Social History (Updated 10/08/20 @ 00:[address] Maury Almanza MD) household members: spouse housing: house Smoking Status: Former smoker alcohol intake: current alcohol intake frequency: holidays/special occasions only substance use type: does not use ROS ROS ED Constitutional Constitutional ED: Denies chills, fever(s), subjective or sweats Eyes Eyes: Denies blurry vision or change in vision ENT ENT ED: Denies ear pain, rhinorrhea or sore throat Cardiovascular Cardiovascular: Denies chest pain or palpitations Respiratory/Chest Respiratory/Chest: Denies cough, dyspnea or dyspnea on exertion Gastrointestinal Gastrointestinal: Reports abdominal pain; Denies diarrhea, nausea or vomiting Genitourinary Genitourinary ED: Denies dysuria, hematuria or urinary frequency Musculoskeletal Musculoskeletal: Reports back pain; Denies arthralgias, myalgias or neck pain Integumentary Denies rash Neurologic Neurologic: Denies paresthesias or weakness Endocrine Endocrinology: Denies polydipsia, polyphagia or polyuria Allergic/Immunologic Allergic/Immunologic ED: Denies urticaria EXAM Physical Exam Const Vital Signs: 10/08/20 00:25 Temperature 97.3 F L Temperature Source Temporal Pulse Rate 64 Respiratory Rate 16 Blood Pressure 162/99 H Blood Pressure Mean 120 Pulse Ox 94 Oxygen Delivery Method Room Air Positive well nourished and well developed General Appearance ED: well developed HEENT Reports moist mucous membranes HEENT Narrative: Ear and nose appears normal. Face is symmetric. Eyes PERRL and EOMs intact bilaterally General Eye ED: Negative for pale conjunctiva or scleral icterus Neck no lymphadenopathy, supple and no JVD Resp normal respiratory effort and clear to auscultation bilaterally Cardio regular rate, regular rhythm, S1 normal heart sound, S2 normal heart sound and no murmurs GI non-distended and no masses Auscultation: normoactive bowel sounds Palpation: soft and tender LLQ (2D outpatient over the kidney region.); Negative for guarding or rebound tenderness present Back/Spine General Back: CVA tenderness Thoracic Spine / Upper Back: Negative for paraspinal muscle tenderness Lumbar Spine / Lower Back: Negative for lumbar spinal tenderness Extremity Negative for normal to inspection Neuro oriented x3 and CN's II-XII intact bilaterally Neuro Narrative: Gait was observed and normal. Sensorium / Orientation: alert Motor Exam: strength 5/5 throughout Psych mental status grossly normal Skin no rashes or lesions noted MDM MDM MDM Narrative Medical decision making narrative: Patient presents with history consistent with obstructing ureteral stone. Will obtain UA to rule out infection. BMP to assess renal function. Patient was treated with Zofran and morphine. He lists aspirin as an allergy and reason Toradol was not administered. Lab Data Attestation: I reviewed the patient's lab results. Labs: Laboratory Results - last 24 hr 10/08/20 10/08/20 00:45 01:46 Sodium 141 Potassium 4.1 Chloride 108 H Carbon Dioxide 30.0 Anion Gap 3 L BUN 17 Creatinine 1.22 Estim Creat Clear Calc 88.90 Est GFR (MDRD) Af Amer 82 Est GFR (MDRD) Non-Af 68 BUN/Creatinine Ratio 13.9 Glucose 103 Calcium 8.9 Urine Color Yellow Urine Clarity Clear Urine pH 6.0 Ur Specific [place] 1.020 Urine Protein Negative Urine Glucose (UA) Normal Urine Ketones Negative Urine Occult Blood 250 H Urine Nitrite Negative Urine Bilirubin Negative Urine Urobilinogen Normal Ur Leukocyte Esterase Negative Urine RBC 5-10 SEEN Urine WBC 0 SEEN Ur Squamous Epith Cells 0 SEEN Urine Bacteria 0 SEEN Urine Mucus 0 SEEN Urine is unremarkable other than blood. Radiography Diagnostic Testing: Radiology Impression Abdomen/Pelvis CT 10/08/20 00:30 IMPRESSION: Mild left hydronephrosis due to a 6 mm stone at the left UP junction. Additional multiple left-sided intrarenal stones as described above. Diffuse fatty liver, remainder of abdominal viscera are unremarkable. No acute appendicitis or bowel obstruction. Electronically Signed: Elizabeth Castillo MD at 1:41 EDT , Service support , CT of the abdomen pelvis without contrast was reviewed. Patient has multiple stones noted in the left kidney. There is a proximal left ureteral stone with hydroureter noted. Discharge Plan Triage Chief Complaint: Flank Pain ED Provider: Maury Almanza Dx/Rx/DC Orders Clinical Impression: Hydronephrosis concurrent with and due to calculi of kidney and ureter Instructions: ED Kidney Stone w/ Colic Prescriptions: New oxycodone-acetaminophen [oxycodone-acetaminophen] 1 TABLET tablet 1 tab PO Q6H PRN PRN (Reason: pain) 5 Days Qty: 20 RF: 0 No Action cyclobenzaprine 10 mg Tablet 10 mg PO TID PRN (Reason: MUSCLE SPASMS) RF: 0 losartan 25 mg Tablet 25 mg PO DAILY RF: 0 escitalopram oxalate [Lexapro] 10 mg Tablet 10 mg PO DAILY RF: 0 Primary Care Provider: Erica Negro Referrals: Erica Negro MD [Primary Care Provider] - Russ Nelson MD [STAFF PHYSICIAN] - 5-7 Days
[2020-10-08] MEDS: Ondansetron 4 MG/2 ML Vial IV (00:51)
[2020-10-08] MEDS: 0.9% Normal Saline 1,000 ML 250 ML IV (00:51)
[2020-10-08] MEDS: morphine 8 MG/ML Syringe IV ×2 (00:52→01:59)
[2020-10-08 01:08] LABS: Anion Gap 3 (5-15); BUN 17 mg/dL (7-18); BUN/Creat Ratio 13.9 RATIO (10-20); Calcium,Total 8.9 mg/dL (8.5-10.1); Chloride 108 mmol/L (98-107); Creatinine, Serum 1.22 mg/dL (0.70-1.30); EST Glomerular Filtration Rate 68 mL/min (>60); Est Glom Filt Rate - Afr Amer 82 mL/min (>60); Glucose 103 mg/dL (74-106); Potassium 4.1 mmol/L (3.5-5.1); Sodium Level 141 mmol/L (136-145)
[2020-10-08 01:50] LABS: Bacteria 0 SEEN /hpf (None Seen); Mucous, Urine 0 SEEN /hpf (<or=2+); Squamous Epithelial Cells - UA 0 SEEN /hpf (0-5); White Blood Cells 0 SEEN /hpf (0-5)
[2020-10-08 01:51] LABS: Color, Urine Yellow (Yellow); Glucose, Dipstick Normal (Normal); Ketone-Dipstick Negative (Negative); Leukocyte Esterase-Dipstick Negative /ul (Negative); Nitrite-Dipstick Negative (Negative); Occult Blood-Urine 250 /ul (Negative); Protein-Dipstick Negative (Negative); Urine Bilirubin Dipstick Negative (Negative); Urine Clarity Clear (Clear); Urine Urobilinogen Normal (Normal)
[2020-10-08 01:55] LABS: Red Blood Cells-Urine 5-10 SEEN /hpf (0-5)
[2020-10-08 02:05] VITALS: RESP 16
--- NOTE | 2020-10-08 04:02 | NURSING ---
AT 0200 the patient left for discharge and the medication was not reassessed for pain as he states he noticed improvement after the first dose and is ready to go home
== END 2020-10-08 02:11 | disposition home or self-care (01) ==
LOC: ED 01:09
PROVIDERS: Emergency Provider Emergency Medicine; PCP Internal Medicine
DX: N13.2 Hydronephrosis with renal and ureteral calculous obstruction (principal); I10 Essential (primary) hypertension; G47.30 Sleep apnea, unspecified; M41.9 Scoliosis, unspecified; Z87.442 Personal history of urinary calculi; Z79.899 Other long term (current) drug therapy; Z87.891 Personal history of nicotine dependence
CPT/HCPCS: 74176; 80048; 81001; 96361; 96374; 96375; 99284; J7030; A4216; J2405

== ENCOUNTER 2020-10-17 08:36 | Day surgery (SDC) | payer OTHER, SELFPAY ==
[2020-10-17] VITALS (7 sets, daily range): BP systolic 138–154; BP diastolic 88–109; PULSE 66–87; RESP 16; TEMP 35.8–36.8; O2SAT 90–98; BMI 32.5
--- NOTE | 2020-10-17 08:45 | RAD_ITS ---
STUDY: X-RAY - ABDOMEN/PELVIS REASON FOR EXAM: Male, 44 years old. preop kidney stone left TECHNIQUE: Single AP view of the abdomen / pelvis. COMPARISON: CT scan 10/08/2020. FINDINGS: Normal visualized lung bases. There is a 6 mm left proximal ureteral calculus at the level of L2. Multiple additional renal stones as much as 5 mm size seen in the mid and lower right kidney, upper mid and lower left kidney. There is an unremarkable bowel gas pattern. There is no demonstrated free abdominal air. The visualized liver, spleen and kidneys are grossly normal in size and morphology. Normal soft tissue structures. Normal visualized osseous structures. RAD/Abdomen Single View IMPRESSION: There is a 6 mm left proximal ureteral calculus at the level of L2. Multiple additional renal stones as much as 5 mm size seen in the mid and lower right kidney, upper mid and lower left kidney. Electronically Signed: Remy Brito MD at 16:55 EDT , Service support ,
[2020-10-17] MEDS: Lactated Ringers 1,000 ML 100 ML IV ×2 (09:14→13:30)
[2020-10-17] MEDS: Losartan Potassium 25 MG Tablet PO (10:38)
[2020-10-17] MEDS: Cefazolin 2 GM in 0.9% Normal Saline 100 ML IV (12:03)
--- NOTE | 2020-10-17 12:18 | HP.PCM_ITS ---
HPI - General HPI Narrative DEANNE COLLIER, is a 44 M who presents stone in the mid left ureter and also some stones in the left kidney presents for treatment with shockwave lithotripsy [facility] Medical History (Updated 10/14/20 @ 11:22 by Silke Mercado) Anxiety Arthritis Blackout CPAP (continuous positive airway pressure) dependence Depression Former smoker Heartburn History of edema History of Holter monitoring History of pain when walking History of renal disease Hx of echocardiogram Hx of pleural empyema Hypertension Injury of back Injury of head and neck Left ureteral calculus Leg cramps Loose, teeth Scoliosis Sleep apnea Wears glasses Home Medications cyclobenzaprine 10 mg PO TID PRN 10/08/20 [History Last Taken Unknown] escitalopram oxalate [Lexapro] 10 mg PO DAILY 10/08/20 [History Last Taken Unknown] losartan 25 mg PO DAILY 10/08/20 [History Last Taken Unknown] oxycodone-acetaminophen 1 tab PO Q6H PRN PRN 5 Days #20 tablet 10/08/20 [Rx Last Taken Unknown] ergocalciferol (vitamin D2) [Vitamin D2] 1,250 mcg PO MOTH 10/14/20 [History Last Taken Unknown] naproxen 500 mg PO BID PRN 10/14/20 [History Last Taken Unknown] tamsulosin [Flomax] 0.4 mg PO QHS 10/14/20 [History Last Taken Unknown] ciprofloxacin HCl [Cipro] 500 mg PO BID #10 tab 10/17/20 [Rx Last Taken Unknown] oxycodone-acetaminophen [Percocet] 1 tab PO Q4H PRN 7 Days #10 tab 10/17/20 [Rx Last Taken Unknown] Allergy/AdvReac Type Severity Reaction Status Date / Time aspirin Allergy Rash Verified 10/17/20 08:47 bee venom protein (honey bee) Allergy Angioedema Verified 10/17/20 08:47 latex Allergy Rash Verified 10/17/20 08:47 Social History (Updated 10/08/20 @ 00:[address] Maury Almanza MD) household members: spouse housing: house Smoking Status: Former smoker alcohol intake: current alcohol intake frequency: holidays/special occasions only substance use type: does not use ROS Constitutional Constitutional: Denies chills, fever(s) or malaise Eyes Eyes: Denies blurry vision or change in vision ENT HEENT: Reports none Cardiovascular Cardiovascular: Denies chest pain or palpitations Respiratory/Chest Respiratory/Chest: Denies cough or shortness of breath with exertion Gastrointestinal Gastrointestinal: Denies abdominal pain, constipation or diarrhea Genitourinary Genitourinary: Reports systems reviewed and no addt'l complaints, except as documented Musculoskeletal Musculoskeletal: Denies back pain, joint stiffness or joint swelling Integumentary Integumentary: Denies dry skin, jaundice, lesions or rash Neurologic Neurologic: Denies confusion, syncope or weakness Psychiatric Psychiatric: Reports none; Denies anxiety or depression Endocrine Endocrinology: Denies excessive sweating, fatigue or flushing Hematologic/Lymphatic Hematologic/Lymphatic: Denies anemia, easy bleeding or easy bruising Vital Signs Vital Signs Vital Signs: 10/17/20 09:15 Temperature 96.9 F L Temperature Source Temporal Pulse Rate 87 Respiratory Rate 16 Respiratory Pattern Normal Blood Pressure 154/94 H Blood Pressure Mean 114 Blood Pressure Source Monitor Blood Pressure Position Semi-Fowlers Blood Pressure Location Right Arm Pulse Ox 96 Oxygen Delivery Method Room Air Weight Weight: 109 kg Body Mass Index (BMI) 32.5 Physical Exam Const alert and oriented x3 General Appearance: cooperative HEENT normocephalic, head/scalp atraumatic, EAC's normal and TM's normal bilaterally Eyes PERRL and EOMs intact bilaterally Pupil: sluggish Neck no lymphadenopathy, supple and no JVD General: trachea midline Lymph Lymphatic: no lymphadenopathy noted, lymphedema and lymphadenopathy Resp normal respiratory effort, normal air movement and clear to auscultation bilaterally Cardio regular rate, regular rhythm and peripheral pulses 2+ throughout GI soft to palpation, non-tender and non-distended Extremity normal capillary refill and no clubbing, cyanosis or edema General Extremity: no tenderness to palpation of joints or extremities Skin no rashes or lesions noted General Skin Exam: turgor normal Lesions: no lesions Rashes: no rashes Neuro CN's II-XII intact bilaterally Speech: speech normal Motor Exam: strength 5/5 throughout; Negative for general weakness Psych thought process normal, cooperative and affect normal Appearance: appropriate Lab / Micro Data Micro: Microbiology 10/16/20 10:20 SARS-CoV-2 Antigen (Rapid) - Final Interface Orders Assessment & Plan Assessment/Plan (1) Kidney stone: PLAN: Plan to proceed with shockwave lithotripsy possible stent left side
--- NOTE | 2020-10-17 12:19 | PCM.DC ---
Discharge Instructions Diet Discharge Diet: No restrictions Activity Discharge Activity: May not drive while taking narcotic pain medications. (for 3 days.) May shower in (days): 1 Dressing / Incision Call your doctor if your incision/area has: Continuous Slow Oozing, Increased Pain/ Swelling, Increased Redness and Foul Smelling Discharge Call your doctor if you observe: Fever of 101 or Higher, Numbness or Tingling, Shortness of breath, Dizziness, Calf discomfort and Uncontrolled pain Cleanse incision/area with: Keep Dressing Clean & Dry Follow Up Care Please Follow Up With: Russ Nelson MD When: Call [phone] for an appointment Test Results: Test results from this visit will be discussed in further detail at your follow-up appointment, if applicable. Discharge Plan Admission Primary Reason for Your Visit: ESWL Attending Provider: Russ Nelson Primary Care Provider: Erica Negro Discharge Orders/Prescriptions Prescriptions: New ciprofloxacin HCl [Cipro] 500 mg tablet 500 mg PO BID Qty: 10 RF: 0 oxycodone-acetaminophen [Percocet] 5-325 mg tablet 1 tab PO Q4H PRN (Reason: pain) 7 Days Qty: 10 RF: 0 Continued cyclobenzaprine 10 mg Tablet 10 mg PO TID PRN (Reason: MUSCLE SPASMS) RF: 0 losartan 25 mg Tablet 25 mg PO DAILY RF: 0 escitalopram oxalate [Lexapro] 10 mg Tablet 10 mg PO DAILY RF: 0 oxycodone-acetaminophen 1 TABLET tablet 1 tab PO Q6H PRN PRN (Reason: pain) 5 Days Qty: 20 RF: 0 tamsulosin [Flomax] 0.4 mg Capsule 0.4 mg PO QHS RF: 0 ergocalciferol (vitamin D2) [Vitamin D2] 1,250 mcg (50,000 unit) Capsule 1,250 mcg PO MOTH RF: 0 naproxen 500 mg Tablet 500 mg PO BID PRN (Reason: Pain) RF: 0 Referrals / Follow Up: Erica Negro MD [Primary Care Provider] - Disposition Discharge Orders: Discharge Patient (Routine); Ordered 10/17/20 Ordered By: Dr. Russ Nelson
--- NOTE | 2020-10-17 13:03 | PCM.OPRPT ---
Report of Operation Date of Procedure: 10/17/20 Pre-Operative Diagnosis: left renal and ureteral calculi Post-Operative Diagnosis: same Surgery/Procedure Performed:: left ESWL Description of Surgical Findings:: Patient presents to the hospital for treatment of a kidney stone with shockwave lithotripsy. In the preoperative area and x-ray was done to confirm the location of the stone. The x-ray was reviewed and the stone location was reviewed. In the preoperative setting I spoke with the patient regarding the treatment of the stone how the treatment would be conducted and the expectations after surgery. The patient understands there is a risk of bleeding and infection. Also discussed the very rare risk of hematoma or damage to the kidney. We also discussed the risk that the shockwave machine will fail to break the stone adequately and that the patient may need other surgical procedures. We also discussed the possibility that the patient may need a stent after the procedure. After reviewing the procedure with the patient, the patient is signed the consent form all the patient's questions were addressed and was taken back to the operating room for treatment of a kidney stone. Patient was taken back to the operating room, patient was identified by the nursing staff, we identified the side of the treatment and the patient side of treatment had been marked by my initials. The patient underwent general anesthetic and was placed supine on the lithotripter table. We then used fluoroscopy to identify the stone on the left side. We then positioned the patient under the lithotripter and we used triangulation technique to identify the location of the stone and then we made sure that the stone was engaged in the F2 focal point of F2 Donier lithoprior machine. Once the patient was positioned appropriately and the stone was identified and placed in the F2 focal point of the lithotripter machine we then proceeded with shockwave lithotripsy. In the beginning the shockwave was delivered at a rate of 90 shocks per minute, we monitor the EKG for any ectopy. The power was slowly increased to 5 kV and subsequently at the 7 kV. We then proceeded with the treatment we move the therapy had around during the treatment to make sure the stone stayed in the F2 focal point during the entire treatment and after 4000 shockwaves were delivered to the stone under fluoroscopic guidance the treatment was completed. The patient was given instructions to call the office to make an a follow-up appointment with an xray to evaluate the success of the treatment, pateint understands that its possible the stones may need another procedure.At this point the patient's anesthetic was reversed patient was extubated and taken back to the PACU in stable condition. Surgeon: kim Type of Anesthesia: General Drains: none Admit VTE Documentation VTE Present on Admission: No VTE Mechan Device Prophylaxis: SCD's
[2020-10-17] MEDS: Ketorolac 15 MG/ML Vial IM (13:28)
== END 2020-10-17 15:04 ==
LOC: SDC 08:37 → AC 08:38
PROVIDERS: PCP Internal Medicine; Referring Provider Urology; Visit Provider Urology
PROC: (CPT 50590; principal; 2020-10-17 10:50)
DX: N20.2 Calculus of kidney with calculus of ureter (principal); I10 Essential (primary) hypertension; F32.9 Major depressive disorder, single episode, unspecified; F41.9 Anxiety disorder, unspecified; G47.30 Sleep apnea, unspecified; M41.9 Scoliosis, unspecified; M19.90 Unspecified osteoarthritis, unspecified site; Z87.442 Personal history of urinary calculi; Z79.899 Other long term (current) drug therapy; Z87.891 Personal history of nicotine dependence
CPT/HCPCS: 00873; 50590; 74018; 87426; C9803; J7120; J2405

== ENCOUNTER → 2020-11-10 09:34 | Outpatient (CLI) | payer OTHER, SELFPAY ==
[2020-10-17 09:15] VITALS: BMI 32.5
--- NOTE | 2020-11-10 09:53 | RAD_ITS ---
STUDY: X-RAY - ABDOMEN/PELVIS REASON FOR EXAM: Male, 44 years old. CALCULUS OF KIDNEY TECHNIQUE: 2 views COMPARISON: 10/17/2020 FINDINGS: The gas pattern is nonspecific. There is no evidence of organomegaly or soft tissue masses. No abnormal calcification noted. The visualized bones are unremarkable RAD/Abdomen Single View IMPRESSION: Normal x-ray examination of the abdomen and pelvis unchanged since September 2020. Electronically Signed: Alfredo Sanchez, at 14:21 EDT Tel , Service support ,
== END ==
PROVIDERS: PCP Internal Medicine; Referring Provider Urology; Visit Provider Urology
DX: N20.0 Calculus of kidney (principal)
CPT/HCPCS: 74018

== ENCOUNTER 2021-06-02 22:17 | Emergency (ER) | payer OTHER, SELFPAY ==
[2021-06-02 22:18] VITALS: BP 169/96; PULSE 71; RESP 15; TEMP 36.3; O2SAT 99; BMI 33.5
--- NOTE | 2021-06-02 22:34 | EX.ED.VIS.UR ---
HPI HPI - URI History of Present Illness Chief Complaint: Cough Detail of Chief Complaint: Cough and body aches and headache Informant: patient Narrative Narrative: Patient with symptoms of headache and body aches for the last 2 days. Has had a mild cough. He complains of fatigue out of the ordinary. Patient denies fevers. He denies COVID exposures. He has had the COVID-vaccine but not the booster. He denies any chest pain or shortness of breath. ROS ROS ED Constitutional Constitutional ED: Reports systems reviewed and no addt'l complaints, except as documented; Denies body ache(s), change in weight or chills Eyes Eyes: Denies acute decrease in peripheral vision, change in vision, double vision or loss of vision ENT ENT ED: Reports none; Denies ear pain, lip swelling, loss taste/smell, neck pain, otalgia or sore throat Cardiovascular Cardiovascular: Reports none; Denies abdominal pain, chest pain with activity, leg edema, lightheadedness, palpitations, rapid heart rate or syncope Respiratory/Chest Respiratory/Chest: Reports none and cough; Denies change in mental status, dry cough, dyspnea, hemoptysis, shortness of breath at rest or shortness of breath with exertion Gastrointestinal Gastrointestinal: Reports none; Denies abdominal pain, change in stool character, diarrhea, hematemesis, hematochezia, melena, rectal bleeding or vomiting Genitourinary Genitourinary ED: Reports none; Denies abdominal discomfort, anuria, dysuria, genital pain or polyuria Musculoskeletal Musculoskeletal: Reports none and myalgias; Denies arthralgias, back pain, difficulty walking, extremity pain or muscle weakness Integumentary Reports none; Denies abscess or rash Neurologic Neurologic: Reports none and headache(s); Denies abnormal gait, confusion, focal weakness, frequent falls, loss of vision, numbness, paresthesias, radicular pain, vertigo or weakness Psychiatric Psychiatric: Reports systems reviewed and no addt'l complaints, except as documented and none; Denies behavioral changes, confusion, difficulty concentrating, hallucinations, suicidal ideation, tactile hallucinations or visual hallucinations Endocrine Endocrinology: Denies none, cold intolerance, excessive sweating, fatigue or heat intolerance Hematologic/Lymphatic Hematologic/Lymphatic: Reports none; Denies anemia, easy bleeding or easy bruising Allergic/Immunologic Allergic/Immunologic ED: Denies as per HPI, none, lip swelling, mouth swelling, throat swelling, tongue swelling or hives PFSH PFSH Medical History (Updated 06/02/21 @ 23:[address] Jade White DO) Anxiety Arthritis Blackout CPAP (continuous positive airway pressure) dependence Depression Former smoker Heartburn History of edema History of Holter monitoring History of pain when walking History of renal disease Hx of echocardiogram Hx of pleural empyema Hypertension Injury of back Injury of head and neck Left ureteral calculus Leg cramps Loose, teeth Scoliosis Sleep apnea Wears glasses Home Medications cyclobenzaprine 10 mg PO TID PRN 10/08/20 [History Last Taken Unknown] escitalopram oxalate [Lexapro] 10 mg PO DAILY 10/08/20 [History Last Taken Unknown] losartan 25 mg PO DAILY 10/08/20 [History Last Taken Unknown] oxycodone-acetaminophen 1 tab PO Q6H PRN PRN 5 Days #20 tablet 10/08/20 [Rx Last Taken Unknown] ergocalciferol (vitamin D2) [Vitamin D2] 1,250 mcg PO MOTH 10/14/20 [History Last Taken Unknown] naproxen 500 mg PO BID PRN 10/14/20 [History Last Taken Unknown] tamsulosin [Flomax] 0.4 mg PO QHS 10/14/20 [History Last Taken Unknown] ciprofloxacin HCl [Cipro] 500 mg PO BID #10 tab 10/17/20 [Rx Last Taken Unknown] oxycodone-acetaminophen [Percocet] 1 tab PO Q4H PRN 7 Days #10 tab 10/17/20 [Rx Last Taken Unknown] Allergy/AdvReac Type Severity Reaction Status Date / Time aspirin Allergy Rash Verified 06/02/21 22:20 bee venom protein (honey bee) Allergy Angioedema Verified 06/02/21 22:20 latex Allergy Rash Verified 06/02/21 22:20 Social History (Updated 10/08/20 @ 00:[address] Maury Almanza MD) household members: spouse housing: house Smoking Status: Former smoker alcohol intake: current alcohol intake frequency: holidays/special occasions only substance use type: does not use EXAM Physical Exam Const Vital Signs: 06/02/21 22:18 Temperature 97.3 F L Temperature Source Temporal Pulse Rate 71 Respiratory Rate 15 Blood Pressure 169/96 H Blood Pressure Mean 120 Pulse Ox 99 Oxygen Delivery Method Room Air Positive well nourished and well developed General Appearance ED: well developed and NAD HEENT Reports TM's clear and moist mucous membranes normocephalic and atraumatic; Negative for trauma or tenderness Tympanic Membrane ED: Yes TM's clear Eyes PERRL and EOMs intact bilaterally General Eye ED: Negative for pale conjunctiva or scleral icterus Neck no lymphadenopathy, supple and no JVD General: Negative for tenderness Chest Wall inspection of chest normal and palpation of chest normal Chest: Negative for tenderness Resp normal respiratory effort and clear to auscultation bilaterally Effort and Inspection: Negative for respiratory distress or pain with movement Auscultation: Negative for rhonchi, wheezes or diminished lung sounds Cardio regular rate, regular rhythm, S1 normal heart sound, S2 normal heart sound and no murmurs Peripheral Pulses: pulses 2+ throughout GI normal to inspection, nondistended, normoactive bowel sounds, soft to palpation, non-tender, non-distended and no masses Back/Spine no CVA tenderness and no thoracic nor lumbar tenderness Extremity normal to inspection General Extremety ED: Negative for edema General Extremity: Negative for edema Neuro oriented x3, CN's II-XII intact bilaterally, no sensory deficits noted and gait normal Sensorium / Orientation: awake, alert, oriented to person, oriented to place and oriented to time Motor Exam: strength 5/5 throughout and strength abnormal Psych mental status grossly normal Skin no rashes or lesions noted and no wounds MDM MDM MDM Narrative Medical decision making narrative: Patient had a negative rapid COVID test as well as negative influenza. At this point suspect he has an upper respiratory infection. Patient advised to quarantine and repeat a test within the next 2 days as with [facility] it can be 3 of symptoms before rapid test will pick up attendant a positive case. Patient advised to return if increasing shortness of breath or condition worsen anyway. Lab Data Attestation: I reviewed the patient's lab results. Discharge Plan Triage Chief Complaint: Cough ED Provider: Jade White Dx/Rx/DC Orders Clinical Impression: Viral URI Instructions: ED URI, Viral, No Abx (Adult) Prescriptions: No Action cyclobenzaprine 10 mg Tablet 10 mg PO TID PRN (Reason: MUSCLE SPASMS) RF: 0 losartan 25 mg Tablet 25 mg PO DAILY RF: 0 escitalopram oxalate [Lexapro] 10 mg Tablet 10 mg PO DAILY RF: 0 oxycodone-acetaminophen 1 TABLET tablet 1 tab PO Q6H PRN PRN (Reason: pain) 5 Days Qty: 20 RF: 0 tamsulosin [Flomax] 0.4 mg Capsule 0.4 mg PO QHS RF: 0 ergocalciferol (vitamin D2) [Vitamin D2] 1,250 mcg (50,000 unit) Capsule 1,250 mcg PO MOTH RF: 0 naproxen 500 mg Tablet 500 mg PO BID PRN (Reason: Pain) RF: 0 ciprofloxacin HCl [Cipro] 500 mg tablet 500 mg PO BID Qty: 10 RF: 0 oxycodone-acetaminophen [Percocet] 5-325 mg tablet 1 tab PO Q4H PRN (Reason: pain) 7 Days Qty: 10 RF: 0 Primary Care Provider: Erica Negro Referrals: Erica Negro MD [Primary Care Provider] - 5-7 Days Disposition Disposition: Home, Self Care
[2021-06-02 23:38] VITALS: O2SAT 97
[2021-06-02 23:42] VITALS: BP 149/78; PULSE 87; RESP 18; O2SAT 97
== END 2021-06-02 23:42 | disposition home or self-care (01) ==
PROVIDERS: Emergency Provider Emergency Medicine; PCP Internal Medicine; Visit Provider Emergency Medicine
DX: J06.9 Acute upper respiratory infection, unspecified (principal); Z20.822 Contact with and (suspected) exposure to COVID-19; I10 Essential (primary) hypertension; Z87.891 Personal history of nicotine dependence; M19.90 Unspecified osteoarthritis, unspecified site; F41.9 Anxiety disorder, unspecified; F32.A Depression, unspecified; Z79.899 Other long term (current) drug therapy; Z87.442 Personal history of urinary calculi; M41.9 Scoliosis, unspecified; G47.30 Sleep apnea, unspecified
CPT/HCPCS: 87426; 87804; 99282

== ENCOUNTER 2021-10-04 08:30 | Emergency (ER) | payer OTHER, SELFPAY ==
[2021-10-04 08:30] VITALS: BP 157/105; PULSE 82; RESP 15; TEMP 35.8; O2SAT 97; BMI 32.8
--- NOTE | 2021-10-04 08:42 | CT_ITS ---
STUDY: CT ABDOMEN AND PELVIS WITHOUT CONTRAST REASON FOR EXAM: Male, 45 years old. Kidney Stone RADIATION DOSAGE (If Supplied By Facility): CTDIvol = ( 16.72 ) mGy, DLP = ( 1027.40 ) mGycm TECHNIQUE: Transaxial images were obtained from the dome of the diaphragm to the symphysis pubis without oral contrast, and without intravenous contrast. Sagittal and coronal images were reconstructed. Individualized dose optimization techniques were used for this CT. COMPARISON: 10/08/2020 FINDINGS: The visualized lung bases are unremarkable. The visualized portions of the heart are within normal limits. There is decreased attenuation of the liver consistent with steatosis. Normal gallbladder and extrahepatic biliary system. Normal spleen. Normal pancreas. Normal bilateral adrenal glands. 3 mm obstructing stone in the proximal right ureter with mild hydronephrosis. Multiple nonobstructing left renal stones. Normal visualized stomach. Normal small intestine. Normal colon. The appendix is visualized and appears normal. Normal abdominal aorta. Normal inferior vena cava. Normal retroperitoneum. Normal urinary bladder. Normal abdominal wall. Normal osseous structures. CT/Abdomen/Pelvis without Cont IMPRESSION: 3 mm obstructing stone of the proximal right ureter with mild hydronephrosis. Electronically Signed: Marquise Anton MD at 9:38 EDT ,
--- NOTE | 2021-10-04 08:42 | EDS_ITS ---
HPI History of Present Illness Chief Complaint: Flank Pain Informant: patient Narrative Narrative: The patient presents complaining of right flank pain that began this morning history of kidney stones a few years ago requiring lithotripsy, hypertension well-controlled, vomited x1 no diarrhea normal bowel bladder habits otherwise, no trauma to the back, no fever or cough his only complaint is right [facility] History (Updated 06/10/21 @ 00:00 by Colby Newman) Anxiety Arthritis Blackout CPAP (continuous positive airway pressure) dependence Depression Former smoker Heartburn History of edema History of Holter monitoring History of pain when walking History of renal disease Hx of echocardiogram Hx of pleural empyema Hypertension Injury of back Injury of head and neck Left ureteral calculus Leg cramps Loose, teeth Scoliosis Sleep apnea Wears glasses Home Medications cyclobenzaprine 10 mg PO TID PRN 10/08/20 [History Last Taken Unknown] escitalopram oxalate [Lexapro] 10 mg PO DAILY 10/08/20 [History Last Taken Unknown] losartan 25 mg PO DAILY 10/08/20 [History Last Taken Unknown] oxycodone-acetaminophen 1 tab PO Q6H PRN PRN 5 Days #20 tablet 10/08/20 [Rx Last Taken Unknown] ergocalciferol (vitamin D2) [Vitamin D2] 1,250 mcg PO MOTH 10/14/20 [History Last Taken Unknown] naproxen 500 mg PO BID PRN 10/14/20 [History Last Taken Unknown] tamsulosin [Flomax] 0.4 mg PO QHS 10/14/20 [History Last Taken Unknown] ciprofloxacin HCl [Cipro] 500 mg PO BID #10 tab 10/17/20 [Rx Last Taken Unknown] oxycodone-acetaminophen [Percocet] 1 tab PO Q4H PRN 7 Days #10 tab 10/17/20 [Rx Last Taken Unknown] Allergy/AdvReac Type Severity Reaction Status Date / Time aspirin Allergy Rash Verified 10/04/21 08:30 bee venom protein (honey bee) Allergy Angioedema Verified 10/04/21 08:30 latex Allergy Rash Verified 10/04/21 08:30 Social History (Updated 10/08/20 @ 00:[address] Maury Almanza MD) household members: spouse housing: house Smoking Status: Former smoker alcohol intake: current alcohol intake frequency: holidays/special occasions only substance use type: does not use ROS ROS ED Constitutional Constitutional ED: Denies fever(s) Eyes Eyes: Denies change in vision ENT ENT ED: Denies ear pain Cardiovascular Cardiovascular: Denies chest pain Respiratory/Chest Respiratory/Chest: Denies dyspnea Gastrointestinal Gastrointestinal: Reports abdominal pain Genitourinary Genitourinary ED: Denies dysuria Musculoskeletal Musculoskeletal: Denies myalgias Integumentary Denies rash Neurologic Neurologic: Denies headache(s) Endocrine Endocrinology: Denies polyuria EXAM Physical Exam Const Vital Signs: 10/04/21 08:30 Temperature 96.5 F L Temperature Source Temporal Pulse Rate 82 Respiratory Rate 15 Blood Pressure 157/105 H Blood Pressure Mean 122 Pulse Ox 97 Oxygen Delivery Method Room Air Positive well developed General Appearance ED: well developed HEENT Reports normocephalic Negative for trauma Eyes EOMs intact bilaterally Neck supple Chest Wall inspection of chest normal Resp normal respiratory effort Cardio regular rate GI non-tender and non-distended Narrative: He denies any issues other than flank pain Back/Spine Back/Spine Narrative: very mild right CVA pain General Back: CVA tenderness Extremity normal to inspection Neuro oriented x3 and CN's II-XII intact bilaterally Sensorium / Orientation: alert Psych mental status grossly normal Skin no rashes or lesions noted MDM MDM MDM Narrative Medical decision making narrative: Given his complaints past history physical exam ED screening evaluation labs CT pain management Discharge Plan Triage Chief Complaint: Flank Pain ED Provider: Ashley Resendiz Dx/Rx/DC Orders Prescriptions: No Action cyclobenzaprine 10 mg Tablet 10 mg PO TID PRN (Reason: MUSCLE SPASMS) RF: 0 losartan 25 mg Tablet 25 mg PO DAILY RF: 0 escitalopram oxalate [Lexapro] 10 mg Tablet 10 mg PO DAILY RF: 0 oxycodone-acetaminophen 1 TABLET tablet 1 tab PO Q6H PRN PRN (Reason: pain) 5 Days Qty: 20 RF: 0 tamsulosin [Flomax] 0.4 mg Capsule 0.4 mg PO QHS RF: 0 ergocalciferol (vitamin D2) [Vitamin D2] 1,250 mcg (50,000 unit) Capsule 1,250 mcg PO MOTH RF: 0 naproxen 500 mg Tablet 500 mg PO BID PRN (Reason: Pain) RF: 0 ciprofloxacin HCl [Cipro] 500 mg tablet 500 mg PO BID Qty: 10 RF: 0 oxycodone-acetaminophen [Percocet] 5-325 mg tablet 1 tab PO Q4H PRN (Reason: pain) 7 Days Qty: 10 RF: 0 Primary Care Provider: Erica Negro
[2021-10-04 08:50] LABS: Absolute Lymphocyte Count 3.03 X10^3/uL (0.83-4.51); Absolute Neutrophil Count 2.7 X10^3/uL (2.0-7.7); Basophil# 0.05 X10^3/uL; Basophil% 0.7 % (0-1); Eosinophil# 0.14 X10^3/uL; Eosinophils% 2.1 % (0-5); Hematocrit 43.7 % (40-54); Hemoglobin 15.5 g/dL (13.0-16.5); Lymphocyte # 3.03 X10^3/ul (0.83-4.51); Lymphocyte % 44.7 % (19-41); Mean Corp Hgb Conc 35.5 g/dL (32-36); Mean Corpuscular Hgb 31.8 pg (27.0-32.0); Mean Corpuscular Volume 89.5 fL (80-94); Mean Platelet Vol. 9.1 fl (6.2-12.0); Monocyte# 0.79 X10^3/uL; Monocyte% 11.7 % (0-10); NRBC Flagged by Analyzer 0 % (0-5); Neutrophil # 2.73 X10^3/uL (2.7-7.7); Neutrophil % 40.2 % (47-70); Platelet Count 260 K/mm3 (150-450); RBC Distribution Width CV 12.2 % (11.6-14.6); RBC Distribution Width SD 40.1 fl (35.1-43.9); Red Blood Count 4.88 M/mm3 (4.6-6.2); White Blood Count 6.8 K/mm3 (4.4-11.0)
[2021-10-04] MEDS: morphine 8 MG/ML Syringe IV (08:58)
[2021-10-04] MEDS: Ondansetron 4 MG/2 ML Vial IV (08:58)
[2021-10-04 09:03] LABS: Anion Gap 5 (5-15); BUN 17 mg/dL (7-18); BUN/Creat Ratio 14.4 RATIO (10-20); Calcium,Total 8.5 mg/dL (8.5-10.1); Chloride 107 mmol/L (98-107); Creatinine, Serum 1.18 mg/dL (0.70-1.30); EST Glomerular Filtration Rate 70 mL/min (>60); Est Glom Filt Rate - Afr Amer 85 mL/min (>60); Estimated Creatinine Clearance 85.86 ml/min; Glucose 141 mg/dL (74-106); Potassium 3.7 mmol/L (3.5-5.1); Sodium Level 141 mmol/L (136-145)
[2021-10-04] MEDS: 0.9% Normal Saline 1,000 ML 250 ML IV (09:06)
[2021-10-04 10:20] VITALS: BP 131/79; RESP 18
== END 2021-10-04 10:22 | disposition home or self-care (01) ==
LOC: ED 09:31
PROVIDERS: Emergency Provider Emergency Medicine; PCP Internal Medicine; Visit Provider Emergency Medicine
DX: N13.2 Hydronephrosis with renal and ureteral calculous obstruction (principal); Z87.891 Personal history of nicotine dependence; I10 Essential (primary) hypertension; Z87.442 Personal history of urinary calculi; F41.9 Anxiety disorder, unspecified; F32.A Depression, unspecified; G47.30 Sleep apnea, unspecified; M41.9 Scoliosis, unspecified; Z79.899 Other long term (current) drug therapy
CPT/HCPCS: 74176; 80048; 85025; 96374; 96375; 99284; J7030; A4216; J2405

== ENCOUNTER 2022-04-23 10:58 | Outpatient (CLI) | payer OTHER, SELFPAY ==
[2022-04-23 12:43] LABS: Absolute Lymphocyte Count 2.28 X10^3/uL (0.83-4.51); Absolute Neutrophil Count 2.4 X10^3/uL (2.0-7.7); Basophil# 0.06 X10^3/uL; Basophil% 1.1 % (0-1); Eosinophil# 0.14 X10^3/uL; Eosinophils% 2.5 % (0-5); Hematocrit 42.2 % (40-54); Hemoglobin 14.6 g/dL (13.0-16.5); Lymphocyte # 2.28 X10^3/ul (0.83-4.51); Mean Corp Hgb Conc 34.6 g/dL (32-36); Mean Corpuscular Hgb 31.5 pg (27.0-32.0); Mean Corpuscular Volume 90.9 fL (80-94); Mean Platelet Vol. 9.6 fl (6.2-12.0); Monocyte# 0.63 X10^3/uL; Monocyte% 11.3 % (0-10); NRBC Flagged by Analyzer 0 % (0-5); Neutrophil # 2.42 X10^3/uL (2.7-7.7); Neutrophil % 43.6 % (47-70); Platelet Count 256 K/mm3 (150-450); RBC Distribution Width CV 12.4 % (11.6-14.6); RBC Distribution Width SD 40.7 fl (35.1-43.9); Red Blood Count 4.64 M/mm3 (4.6-6.2); White Blood Count 5.6 K/mm3 (4.4-11.0)
[2022-04-23 13:13] LABS: ALB/GLOB Ratio 1.1 RATIO (0.9-2.4); AST(SGOT) 22 U/L (15-37); Alanine Aminotransfer ALT/SGPT 43 U/L (16-61); Albumin, Serum 3.6 g/dL (3.2-5.0); Alkaline Phosphatase 86 U/L (45-117); Anion Gap 4 (5-15); BUN 15 mg/dL (7-18); BUN/Creat Ratio 14.7 RATIO (10-20); Calcium,Total 8.9 mg/dL (8.5-10.1); Chloride 107 mmol/L (98-107); Cholesterol 170 mg/dL (200); Creatinine, Serum 1.02 mg/dL (0.70-1.30); EST Glomerular Filtration Rate 83 mL/min (>60); Est Glom Filt Rate - Afr Amer 101 mL/min (>60); Globulin 3.2 g/dL (2.2-4.2); Glucose 121 mg/dL (74-106); High Density Lipoprotein 26 mg/dL; Potassium 3.7 mmol/L (3.5-5.1); Protein, Total 6.8 g/dL (6.4-8.2); Sodium Level 140 mmol/L (136-145); Triglycerides 260 mg/dL; Very Low Density Lipoprotein 52 mg/dL (5-40)
[2022-04-27 14:09] LABS: LDL, Direct 120295 105 mg/dL (0-99); QNTFERON TB Mitogen Value > 10.00 IU/mL (.); QNTFERON TB Nil Value 0.07 IU/mL (.); QNTFERON TB1+ Ag Value 0.08 IU/mL (.); QNTFERON TB2+ Ag Value 0.06 IU/mL (.)
[2022-04-27 20:51] LABS: Hepatitis B Core Ab Total Negative (Negative); QNTIFERON TB Positive Criteria Negative (Negative)
== END 2022-04-23 23:59 | disposition home or self-care (01) ==
LOC: MTLAB 11:00
PROVIDERS: PCP Internal Medicine
DX: L40.0 Psoriasis vulgaris (principal); L40.59 Other psoriatic arthropathy; Z79.899 Other long term (current) drug therapy
CPT/HCPCS: 36415; 80053; 80061; 83721; 85025; 86480; 86704

== ENCOUNTER 2022-04-29 01:11 | Emergency (ER) | payer OTHER, SELFPAY ==
[2022-04-29 01:12] VITALS: BP 153/104; PULSE 58; RESP 20; TEMP 35.2; O2SAT 98; BMI 33.6
[2022-04-29 01:14] VITALS: BP 153/104; PULSE 59; RESP 20; TEMP 35.2; O2SAT 98
--- NOTE | 2022-04-29 01:23 | CT_ITS ---
INDICATION: flank pain, history of kidney stones EXAMINATION: CT ABDOMEN AND PELVIS WITHOUT CONTRAST TECHNIQUE: Helically acquired images were obtained of the abdomen and pelvis without IV contrast. 2-D reconstructions reviewed. A radiation dose optimization technique was used for this scan. IV Contrast dosage and agent: None. Oral contrast: None. COMPARISON: Unenhanced CT abdomen and pelvis from 10/04/2021. FINDINGS: LOWER CHEST: No acute findings within the imaged lung bases. Heart size within normal limits. LIVER: Fatty and enlarged liver measures 21 cm AP diameter. Focal fatty sparing adjacent to gallbladder fossa. No discrete mass. GALLBLADDER AND BILIARY TREE: No calcified gallstones identified. No gallbladder wall edema demonstrated. No significant biliary ductal dilation. PANCREAS: No discrete mass or peripancreatic edema. SPLEEN: Normal size without discrete mass. ADRENAL GLANDS: Unremarkable. KIDNEYS AND URETERS: Normal renal size and position. There are several small left renal calyceal stones. Left renal edema and mild hydroureteronephrosis secondary to 4.5 mm ureterovesical junction stone. There is also small 3 mm stone within distal left ureter just proximal to ureterovesical junction stone. PERITONEUM: No peritoneal free air or significant free fluid. No other fluid collection. RETROPERITONEUM: No retroperitoneal mass or pathologic fluid collection. BOWEL: No evidence of acute appendicitis. No abnormal stomach or bowel distension. No focal inflammatory change. LYMPH NODES: No enlarged mesenteric or retroperitoneal lymph nodes. VESSELS: Mild atherosclerotic calcifications. URINARY BLADDER: Underdistended urinary bladder. REPRODUCTIVE ORGANS: No pelvic masses. ABDOMINAL WALL: Very small umbilical fat hernia. BONES: Degenerative disc space narrowing and vacuum disc changes at L5-S1 with chronic grade [address]/Abdomen/Pelvis without Cont IMPRESSION: 1. Left nephrolithiasis with mild obstructive uropathy secondary to 4.5 mm left UVJ stone and 3 mm distal ureteral stone. 2. Hepatomegaly and hepatic steatosis. 3. Other nonurgent findings within body of report. Electronically Signed: Dawood Bragg MD at 2:12 EST ,
[2022-04-29] MEDS: 0.9% Normal Saline 1,000 ML 150 ML IV (01:36)
[2022-04-29 01:37] LABS: Mucous, Urine 0 SEEN /hpf (<or=2+); Squamous Epithelial Cells - UA 0 SEEN /hpf (0-5); White Blood Cells 0 SEEN /hpf (0-5)
[2022-04-29 01:38] LABS: Absolute Neutrophil Count 4.1 X10^3/uL (2.0-7.7); Basophil# 0.07 X10^3/uL; Basophil% 0.8 % (0-1); Eosinophil# 0.14 X10^3/uL; Eosinophils% 1.7 % (0-5); Hematocrit 41.2 % (40-54); Hemoglobin 14.7 g/dL (13.0-16.5); Mean Corp Hgb Conc 35.7 g/dL (32-36); Mean Corpuscular Hgb 31.2 pg (27.0-32.0); Mean Corpuscular Volume 87.5 fL (80-94); Mean Platelet Vol. 9.3 fl (6.2-12.0); Monocyte# 0.81 X10^3/uL; Monocyte% 9.6 % (0-10); NRBC Flagged by Analyzer 0 % (0-5); Neutrophil # 4.11 X10^3/uL (2.7-7.7); Neutrophil % 48.9 % (47-70); Platelet Count 284 K/mm3 (150-450); RBC Distribution Width SD 38.5 fl (35.1-43.9); Red Blood Count 4.71 M/mm3 (4.6-6.2); White Blood Count 8.4 K/mm3 (4.4-11.0)
[2022-04-29 01:38] LABS: Color, Urine Yellow (Yellow); Glucose, Dipstick Normal (Normal); Ketone-Dipstick Negative (Negative); Leukocyte Esterase-Dipstick 25 /ul (Negative); Nitrite-Dipstick Positive (Negative); Occult Blood-Urine 250 /ul (Negative); Protein-Dipstick 30 mg/dl (Negative); Specific Gravity, Urine 1.025 (1.002-1.030); Urine Bilirubin Dipstick Negative (Negative); Urine Clarity Clear (Clear); Urine Urobilinogen Normal (Normal); Urine pH 6.5 (5.0 - 8.0)
--- NOTE | 2022-04-29 01:42 | EDS_ITS ---
HPI History of Present Illness Chief Complaint: Flank Pain Detail of Chief Complaint: Flank pain that started this evening Informant: patient Narrative Narrative: Patient presents with sudden onset of left flank pain that started this evening. Patient states that he has a history of kidney stones and thinks he has another one. Patient states he has had to have surgery to have them removed x4 in the past. Patient denies urinary symptoms. He has had some mild nausea. He denies fever. He denies hematuria. Patient currently rates his pain an 8 out of 10. Prior similar symptoms: Yes PFSH PFSH Medical History (Updated 04/29/22 @ 03:[address] Jade White, DO) Anxiety Arthritis Blackout CPAP (continuous positive airway pressure) dependence Depression Former smoker Heartburn History of edema History of Holter monitoring History of pain when walking History of renal disease Hx of echocardiogram Hx of pleural empyema Hypertension Injury of back Injury of head and neck Left ureteral calculus Leg cramps Loose, teeth Scoliosis Sleep apnea Wears glasses Home Medications cyclobenzaprine 10 mg tablet 10 mg PO TID PRN MUSCLE SPASMS 10/08/20 [History Last Taken Unknown] escitalopram oxalate 10 mg tablet (Lexapro) 10 mg PO DAILY 10/08/20 [History Last Taken Unknown] losartan 25 mg tablet 25 mg PO DAILY 10/08/20 [History Last Taken Unknown] oxycodone-acetaminophen 5 mg-325 mg tablet 1 tab PO Q6H PRN PRN pain 5 days #20 TABLETS 10/08/20 [Rx Last Taken Unknown] ergocalciferol (vitamin D2) 1,250 mcg (50,000 unit) capsule (Vitamin D2) 1,250 mcg PO MOTH 10/14/20 [History Last Taken Unknown] naproxen 500 mg tablet 500 mg PO BID PRN Pain 10/14/20 [History Last Taken Unknown] tamsulosin 0.4 mg capsule (Flomax) 0.4 mg PO QHS 10/14/20 [History Last Taken Unknown] ciprofloxacin HCl 500 mg tablet (Cipro) 500 mg PO BID #10 tabs 10/17/20 [Rx Last Taken Unknown] oxycodone-acetaminophen 5 mg-325 mg tablet (Percocet) 1 tab PO Q4H PRN pain 7 days #10 tabs 10/17/20 [Rx Last Taken Unknown] oxycodone-acetaminophen 5 mg-325 mg tablet (Percocet) 1 tab PO Q6H PRN pain 5 days #10 tabs 10/04/21 [Rx Last Taken Unknown] tamsulosin 0.4 mg capsule (Flomax) 0.4 mg PO DAILY #10 caps 10/04/21 [Rx Last Taken Unknown] ondansetron 4 mg disintegrating tablet 4 mg PO Q8H PRN PRN Nausea #10 tabs 04/29/22 [Rx Last Taken Unknown] oxycodone-acetaminophen 5 mg-325 mg tablet 1 tab PO Q6H PRN PRN Pain 3 days #12 TABLETS 04/29/22 [Rx Last Taken Unknown] Allergy/AdvReac Type Severity Reaction Status Date / Time aspirin Allergy Rash Verified 04/29/22 01:15 bee venom protein (honey bee) Allergy Angioedema Verified 04/29/22 01:15 latex Allergy Rash Verified 04/29/22 01:15 Social History (Updated 10/08/20 @ 00:[address] Maury Almanza MD) household members: spouse housing: house Smoking Status: Former smoker alcohol intake: current alcohol intake frequency: holidays/special occasions only substance use type: does not use ROS ROS ED Review of Systems ROS Unobtainable: other Constitutional Constitutional ED: Reports lethargy; Denies chills, fever(s), sweats or weight loss Eyes Eyes: Denies blurry vision, change in vision or diplopia ENT ENT ED: Denies rhinorrhea or sore throat Cardiovascular Cardiovascular: Denies chest pain, orthopnea or racing heartbeat Respiratory/Chest Respiratory/Chest: Denies cough, dyspnea, dyspnea on exertion, orthopnea or sputum Gastrointestinal Gastrointestinal: Reports abdominal pain and nausea; Denies diarrhea or vomiting Genitourinary Genitourinary ED: Denies dysuria, hematuria or urinary frequency Musculoskeletal Musculoskeletal: Reports back pain; Denies arthralgias, myalgias or neck pain Integumentary Denies abscess, Abrasions or rash Neurologic Neurologic: Denies headache(s) or weakness Psychiatric Psychiatric: Denies anxiety, depression or suicidal thoughts Endocrine Endocrinology: Denies polydipsia, polyphagia or polyuria Hematologic/Lymphatic Hematologic/Lymphatic: Denies easy bleeding, easy bruising or lymphadenopathy Allergic/Immunologic Allergic/Immunologic ED: Denies mouth swelling, tongue swelling or urticaria EXAM Physical Exam Const Vital Signs: 04/29/22 01:12 04/29/22 01:14 Temperature 95.4 F L 95.4 F L Temperature Source Temporal Temporal Pulse Rate 58 L 59 L Respiratory Rate 20 H 20 H Blood Pressure 153/104 H 153/104 H Blood Pressure Mean 120 120 Pulse Ox 98 98 Oxygen Delivery Method Room Air Room Air Positive well nourished and well developed General Appearance ED: well developed and NAD HEENT Reports TM's clear and moist mucous membranes normocephalic and atraumatic; Negative for trauma or tenderness Tympanic Membrane ED: Yes TM's clear Eyes PERRL and EOMs intact bilaterally General Eye ED: Negative for pale conjunctiva or scleral icterus Neck no lymphadenopathy, supple and no JVD General: Negative for tenderness Chest Wall inspection of chest normal and palpation of chest normal Chest: Negative for tenderness Resp normal respiratory effort and clear to auscultation bilaterally Effort and Inspection: Negative for respiratory distress or pain with movement Auscultation: Negative for rhonchi, wheezes or diminished lung sounds Cardio regular rate, regular rhythm, S1 normal heart sound, S2 normal heart sound and no murmurs Peripheral Pulses: pulses 2+ throughout GI normal to inspection, nondistended, normoactive bowel sounds, soft to palpation, non-distended and no masses GI Narrative: Tenderness to palpation over left lower quadrant with some guarding. There is no rebound, rigidity, or peritoneal signs. Back/Spine no thoracic nor lumbar tenderness Back/Spine Narrative: Patient has CVA tenderness on the left. Extremity normal to inspection General Extremety ED: Negative for edema General Extremity: Negative for edema Neuro oriented x3, CN's II-XII intact bilaterally, no sensory deficits noted and gait normal Sensorium / Orientation: awake, alert, oriented to person, oriented to place and oriented to time Motor Exam: strength 5/5 throughout and strength abnormal Psych mental status grossly normal Skin no rashes or lesions noted and no wounds MDM MDM MDM Narrative Medical decision making narrative: IV line established on arrival. Patient was medicated with morphine and Toradol and Zofran. Patient had pain relief with that. CBC with differential and chemistries were obtained and essentially unremarkable other than his potassium slightly low at 3.1. I did order 40 mEq of potassium chloride p.o. Urinalysis showed 25-50 RBCs. No signs of infection. CT scan of the abdomen pelvis without contrast obtained showed left urolithiasis 1 stone measuring 4.5 mm at the left UVJ and another smaller stone in the distal ureter measuring 3 mm. This point patient will be given a prescription for oxycodone and given urine strainers. He has naproxen at home. Patient referred to urology for follow-up as he has been seen here locally by Dr. Nelson. Patient advised to return if worsening pain, fever, vomiting, or condition worsen anyway. Lab Data Attestation: I reviewed the patient's lab results. Labs: Laboratory Results - last 24 hr 04/29/22 04/29/22 04/29/22 01:19 01:19 01:30 WBC 8.4 RBC 4.71 Hgb 14.7 Hct 41.2 MCV 87.5 MCH 31.2 MCHC 35.7 RDW Std Deviation 38.5 RDW Coeff of Cindy 12.0 Plt Count 284 MPV 9.3 Immature Gran % (Auto) 1.000 H Neut % (Auto) 48.9 Lymph % (Auto) 38.0 Forrest % (Auto) 9.6 Eos % (Auto) 1.7 Baso % (Auto) 0.8 Absolute Neuts (auto) 4.1 Absolute Lymphs (auto) 3.20 Nucleated RBC % 0 Sodium 138 Potassium 3.1 L Chloride 104 Carbon Dioxide 29.0 Anion Gap 5 BUN 13 Creatinine 1.22 Estim Creat Clear Calc 82.16 Est GFR (MDRD) Af Amer 82 Est GFR (MDRD) Non-Af 68 BUN/Creatinine Ratio 10.7 Glucose 144 H Calcium 9.1 Urine Color Yellow Urine Clarity Clear Urine pH 6.5 Ur Specific [place] 1.025 Urine Protein 30 H Urine Glucose (UA) Normal Urine Ketones Negative Urine Occult Blood 250 H Urine Nitrite Positive H Urine Bilirubin Negative Urine Urobilinogen Normal Ur Leukocyte Esterase 25 H Urine RBC 25-50 SEEN Urine WBC 0 SEEN Ur Squamous Epith Cells 0 SEEN Urine Bacteria RARE Urine Mucus 0 SEEN Radiography Diagnostic Testing: Clinical Impression(s) from Imaging Studies Abdomen/Pelvis CT 04/29/22 01:23 IMPRESSION: 1. Left nephrolithiasis with mild obstructive uropathy secondary to 4.5 mm left UVJ stone and 3 mm distal ureteral stone. 2. Hepatomegaly and hepatic steatosis. 3. Other nonurgent findings within body of report. Electronically Signed: Dawood Bragg MD at 2:12 EST , Discharge Plan Triage Chief Complaint: Flank Pain ED Provider: Jade White Dx/Rx/DC Orders Clinical Impression: Urolithiasis Instructions: ED Kidney Stone w/ Colic Prescriptions: New oxycodone-acetaminophen [oxycodone-acetaminophen] 5-325 mg tablet 1 tab PO Q6H PRN PRN (Reason: Pain) 3 Days Qty: 12 0RF ondansetron [ondansetron] 4 mg tablet,disintegrating 4 mg PO Q8H PRN PRN (Reason: Nausea) Qty: 10 0RF No Action cyclobenzaprine 10 mg Tablet 10 mg PO TID PRN (Reason: MUSCLE SPASMS) losartan 25 mg Tablet 25 mg PO DAILY escitalopram oxalate [Lexapro] 10 mg Tablet 10 mg PO DAILY oxycodone-acetaminophen 1 TABLET tablet 1 tab PO Q6H PRN PRN (Reason: pain) 5 Days Qty: 20 0RF tamsulosin [Flomax] 0.4 mg Capsule 0.4 mg PO QHS ergocalciferol (vitamin D2) [Vitamin D2] 1,250 mcg (50,000 unit) Capsule 1,250 mcg PO MOTH naproxen 500 mg Tablet 500 mg PO BID PRN (Reason: Pain) ciprofloxacin HCl [Cipro] 500 mg tablet 500 mg PO BID Qty: 10 0RF oxycodone-acetaminophen [Percocet] 5-325 mg tablet 1 tab PO Q4H PRN (Reason: pain) 7 Days Qty: 10 0RF oxycodone-acetaminophen [Percocet] 5-325 mg tablet 1 tab PO Q6H PRN (Reason: pain) 5 Days Qty: 10 0RF tamsulosin [Flomax] 0.4 mg capsule 0.4 mg PO DAILY Qty: 10 0RF Primary Care Provider: Erica Negro Referrals: Erica Negro MD [Primary Care Provider] - Russ Nelson MD [Med Staff - Active Staff] - 3-5 Days Disposition Disposition: Home, Self Care
[2022-04-29 01:55] LABS: Bacteria RARE /hpf (None Seen); Red Blood Cells-Urine 25-50 SEEN /hpf (0-5)
[2022-04-29 02:04] LABS: Anion Gap 5 (5-15); BUN 13 mg/dL (7-18); BUN/Creat Ratio 10.7 RATIO (10-20); Calcium,Total 9.1 mg/dL (8.5-10.1); Chloride 104 mmol/L (98-107); Creatinine, Serum 1.22 mg/dL (0.70-1.30); EST Glomerular Filtration Rate 68 mL/min (>60); Est Glom Filt Rate - Afr Amer 82 mL/min (>60); Estimated Creatinine Clearance 82.16 ml/min; Glucose 144 mg/dL (74-106); Potassium 3.1 mmol/L (3.5-5.1); Sodium Level 138 mmol/L (136-145)
[2022-04-29] MEDS: Ondansetron 4 MG/2 ML Vial IV (02:37)
[2022-04-29] MEDS: Ketorolac 30 MG/ML Syringe IV (02:38)
[2022-04-29] MEDS: Morphine 4 MG/ML Syringe IV (02:39)
[2022-04-29 03:24] VITALS: PULSE 90; RESP 16; O2SAT 97
== END 2022-04-29 03:25 | disposition home or self-care (01) ==
PROVIDERS: Emergency Provider Emergency Medicine; PCP Internal Medicine; Visit Provider Emergency Medicine
DX: N20.1 Calculus of ureter (principal); R11.0 Nausea; I10 Essential (primary) hypertension; Z87.891 Personal history of nicotine dependence
CPT/HCPCS: 74176; 80048; 81001; 85025; 96374; 96375; 99282; J7030; A4216; J2405

== ENCOUNTER 2024-12-21 10:38 | Emergency (ER) | payer BC, SELFPAY ==
[2024-12-21] VITALS (12 sets, daily range): BP systolic 145–168; BP diastolic 88–112; PULSE 75–92; RESP 10–23; TEMP 36.8–37.2; O2SAT 86–100; BMI 35.6
--- NOTE | 2024-12-21 10:56 | ED.RN ---
states he has woken up with a migraine the last four days and has intermittent nausea, tickle in his throat, chest discomfort, blurred vision, wheezing and high blood pressure. displays no signs of distress at this time. will continue to monitor.
--- NOTE | 2024-12-21 11:56 | EKG12_ITS ---
Test Reason : Blood Pressure : */* mmHG Vent. Rate : 86 BPM Atrial Rate : 86 BPM P-R Int : 132 ms QRS Dur : 84 ms QT Int : 352 ms P-R-T Axes : 27 10 20 degrees QTcB Int : 421 ms Normal sinus rhythm Normal ECG Confirmed by SWATI ALONSO, CHARMAINE ([id number]), multimedia editor CIELO GARCIA ([id number]) on 12/24/2024 6:56:47 AM Referred By: Low Chavez Confirmed By: CHARMAINE LONGORIA MD
--- NOTE | 2024-12-21 11:56 | RAD_ITS ---
PROCEDURE: CHEST PA AND LATERAL 12/21/2024 REASON FOR EXAM: CHEST PAIN TECHNIQUE: CHEST PA AND LATERAL COMPARISON: None. RAD/Chest PA and Lateral IMPRESSION: Very mild blunting of the left costophrenic angle is seen, but no pleural fluid collection is evident. No pneumothorax is seen. Lungs appear clear of acute disease. The cardiomediastinal silhouette is within the normal range. Mild thoracic spine degenerative changes are seen. No acute osseous changes noted. Reading Location: [place] [id number]
--- NOTE | 2024-12-21 11:57 | EX.ED.DYSGE1 ---
HPI History of Present Illness Chief Complaint: General Illness Narrative Narrative: Patient is a 49-year-old male past medical history of anxiety, depression, DARRELL, hypertension, empyema who presented to the emergency department with a chief complaint of lightheadedness, whole body aches, chest pain, shortness of breath and overall not feeling well. He states that his symptoms have started approximately 4 days ago. He states that on Tuesday he followed up with urgent care and notes that he had some testing performed and was told that this was normal. Patient states over the last 4 days he has had intermittent episodes of dizziness that wax and wane he states that nothing makes this worse or better. Patient denies recent travel history denies any history of blood clots denies any recent sick contacts [facility] Medical History Wears glasses Loose, teeth Depression Anxiety Arthritis History of renal disease Injury of back Injury of head and neck Blackout Heartburn Former smoker CPAP (continuous positive airway pressure) dependence Leg cramps History of pain when walking History of edema Hx of echocardiogram History of Holter monitoring Hx of pleural empyema Scoliosis Sleep apnea Hypertension Left ureteral calculus Home Medications ?Medication ?Instructions ?Recorded ?Last Taken ?Type cyclobenzaprine 10 mg tablet 10 mg PO TID PRN MUSCLE SPASMS 10/08/20 Unknown History escitalopram oxalate 10 mg tablet 10 mg PO DAILY 10/08/20 Unknown History (Lexapro) losartan 25 mg tablet 25 mg PO DAILY 10/08/20 Unknown History oxycodone-acetaminophen 5 mg-325 1 tab PO Q6H PRN PRN pain 5 days 10/08/20 Unknown Rx mg tablet #20 TABLETS ergocalciferol (vitamin D2) 1,250 1,250 mcg PO MOTH 10/14/20 Unknown History mcg (50,000 unit) capsule (Vitamin D2) naproxen 500 mg tablet 500 mg PO BID PRN Pain 10/14/20 Unknown History tamsulosin 0.4 mg capsule (Flomax) 0.4 mg PO QHS 10/14/20 Unknown History ciprofloxacin HCl 500 mg tablet 500 mg PO BID #10 tabs 10/17/20 Unknown Rx (Cipro) oxycodone-acetaminophen 5 mg-325 1 tab PO Q4H PRN pain 7 days #10 05/28/21 Unknown Rx mg tablet (Percocet) tabs oxycodone-acetaminophen 5 mg-325 1 tab PO Q6H PRN pain 5 days #10 10/04/21 Unknown Rx mg tablet (Percocet) tabs tamsulosin 0.4 mg capsule (Flomax) 0.4 mg PO DAILY #10 caps 10/04/21 Unknown Rx ondansetron 4 mg disintegrating 4 mg PO Q8H PRN PRN Nausea #10 tabs 04/29/22 Unknown Rx tablet oxycodone-acetaminophen 5 mg-325 1 tab PO Q6H PRN PRN Pain 3 days 04/29/22 Unknown Rx mg tablet #12 TABLETS Allergy/AdvReac Type Severity Reaction Status Date / Time aspirin Allergy Rash Verified 04/29/22 01:15 bee venom protein (honey bee) Allergy Angioedema Verified 04/29/22 01:15 latex Allergy Rash Verified 04/29/22 01:15 Social History household members: spouse housing: house Smoking Status: Former smoker alcohol intake: current alcohol intake frequency: holidays/special occasions only substance use type: does not use ROS ROS ED ROS Narrative Constitutional: Complains of headache denies fevers, chills complaint of dizziness and lightheadedness as well Eyes: Denies change in vision double vision blurry vision Cardiovascular: Planes of chest discomfort mainly on the right side along his ribs denies palpitations states does not radiate anywhere Respiratory: Denies coughing wheezing shortness of breath Abdomen: Denies abdominal pain nausea vomit diarrhea : Denies urinary symptoms Neurological: Denies numbness, wheeze, tingling Musculoskeletal: Denies back pain Skin: Denies any rashes or lesions EXAM Physical Exam Narrative Exam Narrative: General: Patient was lying in bed rest comfortably did not appear to be acute distress Head: Atraumatic, normocephalic Eyes: PERRL bilaterally, EOMI by, no conjunctival injection noted Neck: Soft, supple, trachea midline Cardiovascular: Regular rate and rhythm no murmurs gallops rubs noted Respiratory: Clear to auscultation bilaterally Abdomen: Soft, nondistended, no tenderness to palpation Extremities: +5/5 strength noted in the bilateral upper and lower extremities, radial pulses +2/4 in the bilateral extremities, no pedal edema on exam Neurological: Patient following commands knew that he was at [facility] the year is 2024 NIH of 0 GCS 15. Patient completed finger-nose testing bilaterally finding difficulty Skin: Warm, dry, intact no rashes or lesions noted old surgical scar noted over the left back region is old and well-healed Const Vital Signs: 12/21/24 10:38 12/21/24 10:54 12/21/24 11:17 Temperature 98.9 F Temperature Source Temporal Pulse Rate 87 82 Respiratory Rate 18 18 Respiratory Effort Normal Respiratory Pattern Normal Blood Pressure 167/109 H Blood Pressure Mean 128 Pulse Ox 98 94 Oxygen Delivery Method Room Air 12/21/24 11:30 12/21/24 11:45 12/21/24 11:56 Temperature Temperature Source Pulse Rate 87 92 Respiratory Rate 19 H 20 H Respiratory Effort Respiratory Pattern Blood Pressure 167/112 H 145/107 H Blood Pressure Mean 128 114 Pulse Ox 96 100 92 Oxygen Delivery Method Room Air 12/21/24 12:15 12/21/24 12:30 12/21/24 12:45 Temperature Temperature Source Pulse Rate 85 83 76 Respiratory Rate 19 H 10 L 23 H Respiratory Effort Respiratory Pattern Blood Pressure 161/109 H 158/98 H 168/100 H Blood Pressure Mean 122 116 120 Pulse Ox 86 93 98 Oxygen Delivery Method 12/21/24 13:15 12/21/24 13:45 12/21/24 14:00 Temperature Temperature Source Pulse Rate 83 80 75 Respiratory Rate 20 H 18 12 Respiratory Effort Respiratory Pattern Blood Pressure 160/100 H 168/109 H 153/110 H Blood Pressure Mean 116 125 124 Pulse Ox 96 96 98 Oxygen Delivery Method 12/21/24 15:04 Temperature 98.2 F Temperature Source Pulse Rate 77 Respiratory Rate 14 Respiratory Effort Respiratory Pattern Blood Pressure 154/88 H Blood Pressure Mean 110 Pulse Ox 96 Oxygen Delivery Method MDM MDM MDM Narrative Medical decision making narrative: Patient is a 49-year-old male who presented to the emergency department for generalized not feeling well overall. On the differential diagnosis includes but not limited to ACS, pneumonia, pneumothorax, empyema, electrolyte abnormality. Once the workup is obtained reviewed he will be reevaluated. Patient CBC was reviewed showed no evidence leukocytosis white blood count normal at 6.7, hemoglobin 14.1, platelet count 217. Patient INR normal at 1, PT of 13. Patient sodium was 142, potassium was 4.3, creatinine was 0.94. Patient's troponin was 12 with a second troponin of less than 6. Patient's EKG reviewed showed sinus rhythm with a rate of 86 bpm with a normal SC interval 132. Patient proBNP normal at 60. Patient TSH normal 1.09, free T4 and T3 normal at 1 and 3.5 respectively. Patient chest x-ray reviewed by myself and by radiology showed very mild blunting of the left costophrenic angle seen but no pleural fluid collection is evidence no pneumothorax noted. Mild thoracic spine degenerative changes noted no acute osseous changes noted. Patient CT head and brain without contrast showed normal noncontrast head CT. Did discuss results with the patient and he would like to go home at this point in time. Patient's blood pressure has been remained persistently elevated here in the emergency department after discussion he notes that he did not take his blood pressure medication this morning. I did inquire if he takes his daily and he states that he periodically will miss his doses. I did inquire if he wears CPAP at night and he states that he has not had his in approximately 3 years as he had one previously that got recalled and has not been able to obtain a new one. I advised the patient that he needs to take his blood pressure medication daily and take his blood pressure randomly 2-3 times a day write down the blood pressure and take this to his doctor for their review to see if there needs to be any medication adjustments done. He is advised to otherwise return with worsening symptoms or concerns. He and his significant other at bedside are agreeable with this plan all course concerns answered discharged home in stable condition. Lab Data Labs: Laboratory Results - last 24 hr 12/21/24 12/21/24 12:12 13:39 WBC 6.7 RBC 4.53 L Hgb 14.1 Hct 41.0 MCV 90.5 MCH 31.1 MCHC 34.4 RDW Std Deviation 40.9 RDW Coeff of Cindy 12.4 Plt Count 217 MPV 9.4 Immature Gran % (Auto) 1.000 H Neut % (Auto) 52.4 Lymph % (Auto) 28.8 Toole % (Auto) 10.6 H Eos % (Auto) 5.7 H Baso % (Auto) 1.5 H Absolute Neuts (auto) 3.5 Absolute Lymphs (auto) 1.93 Nucleated RBC % 0 PT 13.0 INR 1.0 APTT 27.9 Sodium 142 Potassium 4.3 Chloride 105 Carbon Dioxide 26.5 Anion Gap 10 BUN 15 Creatinine 0.94 Estim Creat Clear Calc 125.35 Est GFR (MDRD) Non-Af 99 BUN/Creatinine Ratio 15.5 Glucose 123 H Calcium 9.2 Troponin T High Sens 12 Troponin T Hi Sens 2 Hr < 6 NT pro BNP II 60 TSH 1.090 Free T4 1.00 Free T3 pg/dL 3.5 Radiography Diagnostic Testing: Clinical Impression(s) from Imaging Studies Chest X-Ray 12/21/24 11:56 IMPRESSION: Very mild blunting of the left costophrenic angle is seen, but no pleural fluid collection is evident. No pneumothorax is seen. Lungs appear clear of acute disease. The cardiomediastinal silhouette is within the normal range. Mild thoracic spine degenerative changes are seen. No acute osseous changes noted. Reading Location: [place] [id number] 12/21/24 12:38 IMPRESSION: NORMAL NONCONTRAST HEAD CT. Reading Location: [id number] Discharge Plan Triage Chief Complaint: General Illness ED Provider: Low Chavez Dx/Rx/DC Orders Clinical Impression: Chest pain, Generalized headaches, Body aches Prescriptions: No Action cyclobenzaprine 10 mg Tablet 10 mg PO TID PRN (Reason: MUSCLE SPASMS) losartan 25 mg Tablet 25 mg PO DAILY escitalopram oxalate [Lexapro] 10 mg Tablet 10 mg PO DAILY oxycodone-acetaminophen 1 TABLET tablet 1 tab PO Q6H PRN PRN (Reason: pain) 5 Days Qty: 20 0RF tamsulosin [Flomax] 0.4 mg Capsule 0.4 mg PO QHS ergocalciferol (vitamin D2) [Vitamin D2] 1,250 mcg (50,000 unit) Capsule 1,250 mcg PO MOTH naproxen 500 mg Tablet 500 mg PO BID PRN (Reason: Pain) ciprofloxacin HCl [Cipro] 500 mg tablet 500 mg PO BID Qty: 10 0RF oxycodone-acetaminophen [Percocet] 5-325 mg tablet 1 tab PO Q4H PRN (Reason: pain) 7 Days Qty: 10 0RF oxycodone-acetaminophen [Percocet] 5-325 mg tablet 1 tab PO Q6H PRN (Reason: pain) 5 Days Qty: 10 0RF tamsulosin [Flomax] 0.4 mg capsule 0.4 mg PO DAILY Qty: 10 0RF oxycodone-acetaminophen [oxycodone-acetaminophen] 5-325 mg tablet 1 tab PO Q6H PRN PRN (Reason: Pain) 3 Days Qty: 12 0RF ondansetron [ondansetron] 4 mg tablet,disintegrating 4 mg PO Q8H PRN PRN (Reason: Nausea) Qty: 10 0RF Primary Care Provider: Erica Negro Referrals: Erica Negro MD [Primary Care Provider] - Activity Restrictions/Additional Instructions: Ensure you take your blood pressure medication daily. Check your blood pressure randomly 2-3 times a day write down the blood pressure in the time he took it. Return with worsening symptoms or any other concerns. Your blood work did not show any acute findings and your chest x-ray did not either. Print Language: Algerian Disposition Disposition: Home, Self Care
[2024-12-21] MEDS: 0.9% Normal Saline (1000mL) 1,000 ML 999 ML IV (12:19)
[2024-12-21 12:21] LABS: Hematocrit 41.0 % (40-54); Hemoglobin 14.1 g/dL (13.0-16.5); Immature Granulocytes Count 0.070 X10^3/uL (0.0-0.0); Mean Corp Hgb Conc 34.4 g/dL (32-36); Mean Corpuscular Volume 90.5 fL (80-94); Mean Platelet Vol. 9.4 fl (6.2-12.0); NRBC Flagged by Analyzer 0 % (0-5); Platelet Count 217 K/mm3 (150-450); RBC Distribution Width CV 12.4 % (11.6-14.6); RBC Distribution Width SD 40.9 fl (35.1-43.9); Red Blood Count 4.53 M/mm3 (4.6-6.2); White Blood Count 6.7 K/mm3 (4.4-11.0)
[2024-12-21 12:27] LABS: Prothrombin Time (Protime)PT. 13.0 SECONDS (11.7-14.9)
[2024-12-21 12:28] LABS: Partial Thromboplast Time 27.9 Seconds (24.1-36.2)
--- NOTE | 2024-12-21 12:38 | CT_ITS ---
PROCEDURE: BRAIN/HEAD WITHOUT CONTRAST 12/21/2024 REASON FOR EXAM: HEADACHE, LIGHTHEADEDNESS TECHNIQUE: BRAIN/HEAD WITHOUT CONTRAST Coronal and Sagittal reconstruction series were provided. One or more dose reduction techniques were used (e.g., Automated exposure control, adjustment of the mA and/or kV according to patient size, use of iterative reconstruction technique. RADIATION DOSE SUMMARY: CTDlvol: 44.99 mGy DLP: 863.6 mGycm COMPARISON: None FINDINGS: Brain: Normal CSF Spaces: Normal Sinuses/Mastoids: Clear at visualized levels Bones: Unremarkable CT/Brain/Head without Contrast IMPRESSION: NORMAL NONCONTRAST HEAD CT. Reading Location: [facility]
[2024-12-21 14:01] LABS: Anion Gap 10 (5-15); BUN 15 mg/dL (4-19); BUN/Creat Ratio 15.5 RATIO (10-20); Calcium,Total 9.2 mg/dL (7.6-11.0); Carbon Dioxide 26.5 mmol/L (21.0-32.0); Chloride 105 mmol/L (98-108); Estimated Creatinine Clearance 125.35 ml/min (50-250); Free T3 3.5 pg/mL (2.18-3.98); Glucose 123 mg/dL (70-99); Potassium 4.3 mmol/L (3.3-5.1); Pro- Brain NATRIURETIC PEPTIDE 60 pg/mL (<=900); Troponin T High Sensitivity 12 ng/L (<=22)
[2024-12-21 14:22] LABS: Troponin T High Sens 2 HR < 6 ng/L (<=22)
== END 2024-12-21 15:19 | disposition home or self-care (01) ==
PROVIDERS: Emergency Provider Emergency Medicine; PCP Internal Medicine; Referring Provider Emergency Medicine; Visit Provider Emergency Medicine
DX: R07.9 Chest pain, unspecified (principal); I10 Essential (primary) hypertension; Z87.891 Personal history of nicotine dependence; R51.9 Headache, unspecified; F41.9 Anxiety disorder, unspecified; R06.02 Shortness of breath; R42 Dizziness and giddiness; G47.33 Obstructive sleep apnea (adult) (pediatric); Z99.89 Dependence on other enabling machines and devices; F32.A Depression, unspecified; Z79.899 Other long term (current) drug therapy
CPT/HCPCS: 70450; 71046; 80048; 83880; 84439; 84443; 84481; 84484; 85025; 85610; 85730; 93005; 96360; 99284; A4216